=== PATIENT | male | born 1935 | race Caucasian/White ===

== ENCOUNTER 2020-06-25 19:30 | IRF | payer MEDICARE, SELFPAY ==
--- NOTE | ~2020-06-25 | XR_ITS ---
XR hip RT min 3V w AP pelvis 07/01/2020 13:19 Indication: Right hip pain Procedure: . 4 views right hip Comparison: No prior studies for comparison. Findings: There is a trochanteric nail in the right femoral neck with intramedullary trever and single d istal locking screw. There is a lesser trochanteric fracture. There is near-anatomic alignment. There are are stable lines overlying the right hip, consistent with recent surgery. There is a left total hip arthroplasty. There is advanced multilevel lumbar spondylosis partially visualized. Generalized o steopenia. Impression: 1: Near-anatomic alignment of the right femur post reduction with trochanteric nail and intramedullar y trever. Reviewed, dictated and finalized at location B. Impression: 1: Near-anatomic alignment of the right femur post reduction with trochanteric nail and intramedullary trever.
--- NOTE | ~2020-06-25 | XR_ITS ---
EXAMINATION: XR chest 1V portable EXAM DATE: 07/12/2020 06:59 INDICATION: Decreasing oxygen saturation. TECHNIQUE: Portable AP frontal chest x-ray was obtained. There is no prior study for comparison. FINDINGS: Bilateral upper lobe predominant airspace disease, most likely pneumonia. Heart is normal i n size and would be atypical distribution for pulmonary edema. No pneumothorax or pleural effusion. S ternotomy wires are present without findings to suggest sternal dehiscence. There are bony degenerati ve changes. IMPRESSION: Moderate amount of upper lobe predominant acute airspace disease . Pneumonia more likely than edema. Reviewed, dictated and finalized at location A.
--- NOTE | ~2020-06-25 | CT_ITS ---
EXAMINATION: CTA chest PE protocol EXAM DATE: 07/12/2020 21:25 INDICATION: Elevated D-dimer . TECHNIQUE: Spiral CTA of the chest (pulmonary arteries) was performed with 100 cc Omnipaque 350 intr avenous contrast injection. Images were acquired during the pulmonary arterial phase. Coronal maxi mum intensity projection 3D-reconstructions were created by the technologist on dedicated workstation . Axial, coronal and sagittal reformatted images were reviewed. The dose-length product (DLP) for t his examination was 282.45 mGy-cm. The exposure was tailored according to patient size (auto mA exp osure control), and iterative reconstruction (ASIR) was used as additional dose reduction technique. There is no prior study for comparison. FINDINGS: The main, central pulmonary arteries are dilated which can indicate elevated pulmonary brionna rial pressure, pulmonary arterial hypertension. There are no pulmonary emboli in the 1st through 3rd order (central and interlobar) pulmonary arteries. Some loss of attenuation in the segmental pulmon earl arteries from respiratory motion, some segmental regions not confidently evaluated. No thoracic aortic dissection. There is extensive bilateral upper lobe predominant groundglass density airspace disease most likely acute process. Distribution would be more consistent with infection than edema, h owever there is also mild cardiomegaly, are small to moderate left and small right nonloculated pleur al effusions.. Tracheobronchial tree is patent. There is no mediastinal, hilar or axillary lymph adenopathy. There is no pneumothorax. There are sternotomy wires, and cardiac/coronary surgical c hanges. Correlate with prior history. Upper abdomen is unremarkable. There is thoracic spondylosis without osteoblastic or osteolytic lesions identified. IMPRESSION: 1. Dilated central pulmonary arteries without emboli. Limited segmental evaluation. 2. Extensive bilateral groundglass density airspace disease with upper lobe predominant. Infection a nd/or edema most likely. 3. Cardiomegaly. Small to moderate left, small right pleural effusions. Reviewed, dictated and finalized at location A. IMPRESSION: 1. Dilated central pulmonary arteries without emboli. Limited segmental evalua tion. 2. Extensive bilateral groundglass density airspace disease with upper lobe pr edominant. Infection and/or edema most likely. 3. Cardiomegaly. Small to moderate left, small right pleural effusions.
--- NOTE | ~2020-06-25 | US_ITS ---
EXAMINATION: US venous doppler LE RT DATE: 07/01/2020 11:57 INDICATION: Right lower limb pain and swelling post surgery TECHNIQUE: Grayscale ultrasound images without and with compression and Doppler ultrasound images of the right lower extremity veins were obtained. COMPARISON: None. FINDINGS: The visualized portions of right common femoral vein, profunda (deep) femoral vein, femoral vein, pop liteal vein, peroneal trunk, posterior tibial veins, peroneal veins, gastrocnemius vein and greater s aphenous vein outflow are patent. IMPRESSION: 1. No deep venous thrombosis in the right lower limb. Reviewed, dictated and finalized at location A.
--- NOTE | ~2020-06-25 | US_ITS ---
EXAMINATION: US venous doppler LE EXAM DATE: 07/13/2020 10:24 INDICATION: Recent right hip surgery. Elevated d-dimer. TECHNIQUE: Multiple grayscale, color flow and Doppler images of the lower extremity deep venous syste ms bilaterally were obtained and reviewed. Comparison is made to prior examination from 07/01/2020. FINDINGS: Right side: The right common femoral, femoral and profunda veins demonstrate normal color flow, respi ratory variation, augmentation and compressibility. Compressibility, color flow confirmed within the right popliteal, posterior tibial, peroneal, and greater saphenous veins. Left side: The left common femoral, femoral and profunda veins demonstrate normal color flow, respira tory variation, augmentation and compressibility. Compressibility, color flow confirmed within the l eft popliteal, posterior tibial, peroneal, and greater saphenous veins. IMPRESSION: No lower extremity deep venous thrombosis bilaterally. Reviewed, dictated and finalized at location A.
--- NOTE | ~2020-06-25 | XR_ITS ---
EXAMINATION: XR ankle RT 2V DATE: 07/01/2020 13:19 INDICATION: Right ankle pain post fall TECHNIQUE: Anteroposterior and lateral views of the right ankle were obtained. COMPARISON: None. FINDINGS: Alignment is normal. No fracture. Osteoarthritis with mild to to moderate nonuniform joint space heidi rowing at the right tibiotalar joint. Mild osteoarthritis at the talonavicular, calcaneocuboid and a few of the profiled tarsal metatarsal joints. Small plantar calcaneal spur. Tiny heterotopic ossicle along the inferolateral margin of the medial malleolus which may represent sequela of chronic deltoid ligament sprain. No ankle joint effusion. The soft tissues are unremarkable. IMPRESSION: 1. 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 Reviewed, dictated and finalized at location A. IMPRESSION: 1. 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
--- NOTE | 2020-06-25 19:28 | ADMGEN ---
Arrived via ambulance at 18:50. This patient, Leo Lucio, was admitted to [facility] Room 221-02. Patient/family oriented to hospital policies and general routines including ID bracelet, bed and alarms, visiting hours, pain management, procedures, bathroom and other care routines, personal items, smoking policy, room service/diet, and visiting hours. Information on how to activate the Rapid Response Team has been discussed. Patient/Family are encouraged to report perceived risks to care and to ask questions if they do not understand what they are told or what they should do.
[2020-06-25 20:31] LABS: INR 2.5; Prothrombin Time 27.5 Seconds (11.1-14.7)
[2020-06-25 22:00] VITALS: BP 132/71; PULSE 88; RESP 18; TEMP 37.1; O2SAT 93; BMI 23.9
[2020-06-25 22:15] VITALS: PULSE 88
[2020-06-25] MEDS: OMEGA 3 POLYUNSAT FATTY ACIDS 1 GM CAP PO (22:15)
[2020-06-25] MEDS: METOPROLOL TARTRATE 25 MG TABLET PO (22:15)
[2020-06-25] MEDS: WARFARIN (*PBKC) 2 MG TABLET PO (22:16)
[2020-06-25] MEDS: traMADol HCL (*CRX) 50 MG TABLET PO (22:45)
[2020-06-26] VITALS (8 sets, daily range): BP systolic 121–148; BP diastolic 58–76; PULSE 75–96; RESP 16; TEMP 36.2–36.6; O2SAT 98–99; BMI 23.9
[2020-06-26 05:11] LABS: Basophils Percent Auto 0.2 % (0.2-1.2); Eosinophils Absolute Auto 0.2 K/mm3 (0-0.3); Eosinophils Percent Auto 2.8 % (0-4.4); Hematocrit 29.5 % (42.0-52.0); Immature Granulocyte Absolute 0.02 K/mm3 (0.00-0.031); Immature Granulocyte Percent A 0.4 % (0-0.5); Lymphocytes Absolute Auto 0.65 K/mm3 (0.9-3.2); Lymphocytes Percent Auto 12.1 % (18.3-44.2); Mean Corpuscular HGB Conc 33.9 g/dl (32-36); Mean Corpuscular Hemoglobin 32.3 pg (26-34); Mean Corpuscular Volume 95.2 fl (80-100); Mean Platelet Volume 11.2 fl (7.4-10.4); Monocytes Absolute Auto 0.5 K/mm3 (0.1-0.6); Monocytes Percent Auto 9.3 % (2.6-8.5); Neutrophils Percent Auto 75.2 % (45.5-73.1); Platelet Count Result 146 k/mm3 (150-375); Red Cell Distribution Width 12.8 % (11.5-14.5); White Blood Count 5.4 K/mm3 (4.5-10.0)
[2020-06-26 05:28] LABS: Anion Gap 2 mmol/L (8-16); Blood Urea Nitrogen 18 mg/dL (9-20); Calcium 8.6 mg/dL (8.4-10.2); Carbon Dioxide 28 mmol/L (22-30); Chloride 99 mmol/L (98-107); Estimated CRCL calculation 59 ml/min; Estimated Glomerular Filt Rate > 60; Glucose 106 mg/dL (75-110); Potassium 4.1 mmol/L (3.4-5.0); Sodium 129 mmol/L (137-145)
[2020-06-26 05:54] LABS: INR 2.4; Prothrombin Time 26.4 Seconds (11.1-14.7)
[2020-06-26] MEDS: AMIODARONE HCL 200 MG TABLET PO ×2 (08:27→17:13)
[2020-06-26] MEDS: CARBIDOPA/LEVODOPA 25/250 MG TABLET 1 TABLET PO ×3 (08:27→17:13)
[2020-06-26] MEDS: PRAVASTATIN SODIUM 20 MG TABLET PO (08:27)
[2020-06-26] MEDS: CLOPIDOGREL BISULFATE 75 MG TABLET PO (08:27)
[2020-06-26] MEDS: ISOSORBIDE MONONITRATE 30 MG TAB.ER.24H PO (08:27)
[2020-06-26] MEDS: METOPROLOL TARTRATE 25 MG TABLET PO ×2 (08:28→20:08)
[2020-06-26] MEDS: ERGOCALCIFEROL 50,000 UNIT CAPSULE 50000 UNITS PO (08:28)
[2020-06-26] MEDS: FLUTICASONE PROPIONATE 0.05% NA SPR 16 GM BTL (*BKC) 1 SPRAY NASAL (08:28)
[2020-06-26] MEDS: amantadine HCL 100 MG CAPSULE PO ×2 (08:28→17:13)
[2020-06-26] MEDS: ramipriL 5 MG CAPSULE 10 MG PO (08:28)
--- NOTE | 2020-06-26 12:17 | WPDREHABHP ---
H&P: HPI History of Present Illness Date/Time: 06/26/20 12:17 HISTORY OF PRESENT ILLNESS: The patient's primary rehab impairment category is Orthopedic LE The etiologic diagnosis is Comminuted and minimally displaced intertrochanteric right hip fracture I saw this patient [id number] on 06/16/20 The patient is a 85-year-old male with past medical history of coronary artery disease, hypertension, squamous cell cancer, Parkinson's disease, hyperlipidemia, BPH who presented to [facility] for an elective transesophageal echo on 06/20/2020. LONNIE revealed a flail to posterior mitral valve leaflet with torn chordae tendonae and severe mitral regurgitation. on his way home the patient slipped sustaining a right hip fracture. Patient was initially evaluated at [facility] in [place] and then transferred to [facility] for further evaluation and management. Patient underwent a close reduction and hip pinning on 06/21/[address] Manrique. He is weight-bearing as tolerated. On 06/21 the patient went into atrial fib it was started on an amiodarone IV drip and switched to p.o. amiodarone 200 mg twice a day. The patient converted back to sinus rhythm. His hospital course has been significant for atrial fib, acute postop pain, hyponatremia, hypertension, hyperlipidemia, Parkinson's disease and acute blood loss anemia. Hypertension is being treated with metoprolol and ramipiril. hyperlipidemia is treated with provide asked in. Parkinson's disease is chronic and there are tremors noted to bilateral upper extremity he currently is on carbidopa levodopa and amantadine. I spoke with Dr. Dallas his utility bill complaints investigator at [facility] regarding anticoagulation. At this time patient is to remain on Plavix 75 mg daily with Coumadin. INR range is 2-3. My discussion with Dr. Dallas was my concern regarding potential fall with a diagnosis of Parkinson's disease. Dr. Dallas will see the patient in 4 weeks and most likely will have a Holter monitor to determine need of ongoing Coumadin. Patient will be discharged from rehab with Plavix and Coumadin. Coumadin will be managed by [facility] anticoagulation clinic at time of discharge. Patient will have follow-up with Dr. Dallas, Cardiology, and Dr. Manrique orthopedic COVID: The patient has not traveled outside the [place] are had contact with someone who is ill that his travel outside the [place] in the past 21 days. The patient has not traveled to an area of the [place] that is experiencing no transmission of the Coronavirus and has not had close personal contact with anyone that has. The patient does not have a fever. The patient is not experiencing lower respiratory illness symptoms. COVID test was negative on 06/25/2020. Therapy was initiated at the acute care facility and the patient transferred to us from [facility] on 06/25/2020 in the evening FALLS OR SURGERIES: The patient has had no major surgeries in the 100 days prior to admission. They had 1 falls in the past year. They had falls with injury in the past year. Right hip pinning 06/21/2020 PRIOR LEVEL OF FUNCTION: Eating was [INDEPENDENT] Oral Care was [INDEPENDENT] Toileting Hygiene was [INDEPENDENT] Shower/Bathing was [INDEPENDENT] Upper Body Dressing was [INDEPENDENT] Lower Body Dressing was [INDEPENDENT] Donning/[place] Footwear was [INDEPENDENT] Rolling Left and Right was [INDEPENDENT] Sit to Lying was [INDEPENDENT] Lying to Sitting was [INDEPENDENT] Sit to Stand was [INDEPENDENT] Bed to Chair Transfers was [INDEPENDENT] Toilet Transfers was [INDEPENDENT] Walking was [INDEPENDENT] [750 feet] with rolling walker Wheelchair Mobility was NOT APPLICABLE PRIOR TO ADMISSION Stairs were INDEPENDENT CURRENT LEVEL OF FUNCTION: Eating was is setup Oral Care was partial to moderate assistance Toileting Hygiene was substantial to maximal assist Shower/Bathing was subst
[2020-06-26] MEDS: ACETAMINOPHEN 325 MG TABLET 650 MG PO (12:18)
--- NOTE | 2020-06-26 13:45 | PCNSR ---
On 06/26/20, the student,Alisa Zurita, provided care and completed [facility] documentation on this patient. I have reviewed the student's documentation and agree with the findings.
[2020-06-26] MEDS: TAMSULOSIN HCL 0.4 MG CAPSULE PO (17:12)
[2020-06-26] MEDS: WARFARIN (*PBKC) 2 MG TABLET PO (17:13)
[2020-06-26] MEDS: BISACODYL 10 MG SUPPOSITORY RECTAL (18:28)
[2020-06-26] MEDS: DOCUSATE SODIUM 100 MG CAPSULE PO (20:08)
[2020-06-26] MEDS: OMEGA 3 POLYUNSAT FATTY ACIDS 1 GM CAP PO (20:08)
[2020-06-26] MEDS: BISACODYL 5 MG TABLET EC PO (20:13)
[2020-06-27 05:11] VITALS: BP 148/64; PULSE 81; RESP 16; TEMP 36.3; O2SAT 97
[2020-06-27 05:30] LABS: INR 2.5; Prothrombin Time 27.7 Seconds (11.1-14.7)
[2020-06-27] MEDS: ISOSORBIDE MONONITRATE 30 MG TAB.ER.24H PO (08:36)
[2020-06-27] MEDS: amantadine HCL 100 MG CAPSULE PO ×2 (08:36→17:56)
[2020-06-27] MEDS: CARBIDOPA/LEVODOPA 25/250 MG TABLET 1 TABLET PO ×3 (08:36→17:56)
[2020-06-27 08:37] VITALS: PULSE 81
[2020-06-27] MEDS: polyethylene glycoL 3350 17 GM POWD.PACK PO (08:37)
[2020-06-27] MEDS: AMIODARONE HCL 200 MG TABLET PO ×2 (08:37→17:56)
[2020-06-27] MEDS: ramipriL 5 MG CAPSULE 10 MG PO (08:37)
[2020-06-27] MEDS: CLOPIDOGREL BISULFATE 75 MG TABLET PO (08:37)
[2020-06-27] MEDS: DOCUSATE SODIUM 100 MG CAPSULE PO ×2 (08:37→20:48)
[2020-06-27] MEDS: METOPROLOL TARTRATE 25 MG TABLET PO ×2 (08:37→20:48)
[2020-06-27] MEDS: PRAVASTATIN SODIUM 20 MG TABLET PO (08:37)
--- NOTE | 2020-06-27 12:47 | RPD ---
INDIVIDUALIZED PLAN OF CARE FOR Leo Lucio Brief Synthesis of Pre-Admission Screen, Post-Admission Evaluation and Therapy Evaluations: The patient presents to rehab with comminuted and minimally displaced intertrochanteric right hip fracture. Comorbidities include acute postoperative pain, acute blood loss anemia, atrial fibrillation, hyponatremia, hypertension, hyperlipidemia, Parkinson's disease, BPH, coronary artery disease, and mitral valve regurgitation. The complexity of the patient's medical management, nursing, and therapy needs require an inpatient rehab hospital stay with a physician-led interdisciplinary team approach. The patient?s needs will be best met in an intensive program vs. at a lower level of care. The patient requires physician services for medical oversight, management of postop complications in setting of present comorbidities, and pain management. He will be followed at least three times a week by the rehabilitation physician. Orthopedics may see the patient at the frequency of their discretion. Labs will be drawn to monitor blood counts and electrolytes periodically. The patient requires nursing services for DVT prophylactics, infection protection, medication management and education, pressure relief, and wound care. Deficits include: ADLs, Balance, Endurance, Family Training/Education, Mobility, Pain Management, ROM, Safety, Strength, and Transfers. Test Lead Application Testing/Case Management for: Discharge Planning and Patient/Family Counseling Physical Therapy: 5 days per week for 75 minutes. Treatments may include: Therapeutic Exercise, Gait Training, Neuromuscular Re-education, Transfer Training, Community Reintegration, Bed Mobility, Patient/Family Education, Wheelchair Mobility Group Therapy/Concurrent Therapy Rationales: -Improve attention span during functional activities in a distracted environment. -Enhance problem solving and/or adequate judgment skills during functional activities in a distracted environment. -Promote increased safety awareness in a distracted environment to reduce fall risk with functional tasks, transfers, and ambulation to allow a more safe, self-sufficient return to the home environment. -Improve dynamic balance skills to promote safety and independence with functional activities in a distracted environment for maximum gain. Occupational Therapy: 5 days per week for 75 minutes. Treatments may include: Therapeutic Exercise, Therapeutic Activity, Cognitive Training, Self-Care Transfer Training, Community Reintegration, Home Management, Patient/Family Education, Wheelchair Mobility Training, Energy Conservation Training Group Therapy/Concurrent Therapy Rationales: -Allow therapist to observe and teach generalization and carry-over of skills learned in individual therapy. -Enhance problem solving and sequencing skills during therapeutic activities in a distracted environment. -Promote increased safety awareness in a realistic setting to reduce fall risk with functional tasks due to visual and verbal distractions. -Increase functional level with ADLs, ADL transfers and use of adaptive equipment through therapeutic activities with others while promoting safety to allow a more safe, self-sufficient return home. Speech Therapy: 5 days per week for 30 minutes. Treatments may include: Dysphasia Therapy, Speech/Language/Communication Therapy, Cognitive Training, Patient/Family Education Group Therapy/Concurrent Therapy - Rationale: -Allow therapist to observe and teach generalization and carry-over of skills learned in individual therapy. -Improve comprehension skills with complex or abstract ideas through discussion in a realistic setting. -Enhance problem solving skills with complex issues during activities in a distracted environment. -Promote increased memory skills and concentration in a distracted environment for a safe transition home. -Improve attention and focus with language/communication skills in a realistic and s
[2020-06-27] MEDS: traMADol HCL (*CRX) 50 MG TABLET PO (13:06)
--- NOTE | 2020-06-27 13:15 | WPDNEURORHBP ---
Subjective Date/time seen: 06/27/20 13:15 The patient is a 85-year-old male with past medical history of coronary artery disease, hypertension, squamous cell cancer, Parkinson's disease, hyperlipidemia, BPH who presented to [facility] for an elective transesophageal echo on 06/20/2020. LONNIE revealed a flail to posterior mitral valve leaflet with torn chordae tendonae and severe mitral regurgitation. On his way home from the LONNIE, the patient slipped sustaining a right hip fracture. Patient was initially evaluated at [facility] in [place] and then transferred to [facility] for further evaluation and management. Patient underwent a close reduction and hip pinning on 06/21/[address] Manrique. He is weight-bearing as tolerated. On 06/21 the patient went into atrial fib it was started on an amiodarone IV drip and switched to p.o. amiodarone 200 mg twice a day. The patient converted back to sinus rhythm. His hospital course has been significant for atrial fib, acute postop pain, hyponatremia, hypertension, hyperlipidemia, Parkinson's disease and acute blood loss anemia. Hypertension is being treated with metoprolol and ramipiril. Hyperlipidemia is treated with pravstatin. Parkinson's disease is chronic and there are tremors noted to bilateral upper extremity he currently is on carbidopa levodopa and amantadine. I spoke with Dr. Dallas his surface lay out technician at [facility] regarding anticoagulation. At this time patient is to remain on Plavix 75 mg daily with Coumadin. INR range is 2-3. My discussion with Dr. Dallas was my concern regarding potential fall with a diagnosis of Parkinson's disease. Dr. Dallas will see the patient in 4 weeks and most likely will have a Holter monitor to determine need of ongoing Coumadin. Patient will be discharged from rehab with Plavix and Coumadin. Coumadin will be managed by [facility] anticoagulation clinic at time of discharge. Patient will have follow-up with Dr. Dallas, Cardiology, and Dr. Manrique orthopedic Patient admits to BM today. Patient admits to Right hip pain and is requesting stronger pain pill Review of Systems Review of Systems: All systems reviewed & are unremarkable except as noted in HPI and below Functional Status Ambulation Ability Ability to Ambulate 10 Feet: Minimum Assistance X 1 Ambulation Assistive Devices: Walker, Wheeled Exam Narrative: Exam Narrative: Head is normocephalic except for left ear and left jaw where squamous cell carcinoma was removed. External ocular muscles are intact. Affect is flat. Neck is supple. Heart rate and rhythm is regular with a 4/6 systolic ejection murmur noted. Lungs are clear to auscultation. Chest wall reveals well-healed CABG scar. Graft sites are noted to the left upper extremity. Abdomen is soft nontender positive bowel sounds. Tongue is midline. Cognition reflects mild cognitive deficits in problem solving, sequencing, and memory. Clearing of the throat was noted while drinking from a straw. Bilateral upper extremity strength are 4/5. Left lower extremity strength are 4/5. Right hip incision revealed dressing noted. Proximal hip strength is trace to 2/5. Distal right lower extremity strength is 3+ to 4-. Transfers are min/mod Objective Data Vital Signs Vital Signs: Vital Signs - 24 hr 06/26/20 14:00 06/26/20 17:13 06/26/20 20:00 Temperature 36.4 C Pulse Rate 86 86 75 Respiratory Rate 16 16 Blood Pressure 121/58 L Pulse Oximetry 99 99 06/26/20 20:08 06/26/20 21:23 06/27/20 05:11 Temperature 36.6 C 36.3 C L Pulse Rate 75 96 81 Respiratory Rate 16 16 Blood Pressure 145/76 H 148/64 H Pulse Oximetry 98 97 06/27/20 08:37 Temperature Pulse Rate 81 Respiratory Rate Blood Pressure Pulse Oximetry Intake/Output Intake/Output: Intake & Output 06/24/20 06/25/20 06/26/20 06/27/20 23:59 23:59 23:59 23:59 Intake Total 840 740 Balance
[2020-06-27 14:00] VITALS: BP 112/63; PULSE 76; RESP 16; TEMP 36.2; O2SAT 95
[2020-06-27 17:56] VITALS: PULSE 76
[2020-06-27] MEDS: WARFARIN (*PBKC) 2 MG TABLET PO (18:02)
[2020-06-27] MEDS: TAMSULOSIN HCL 0.4 MG CAPSULE PO (18:02)
[2020-06-27 20:48] VITALS: PULSE 76
[2020-06-27] MEDS: OMEGA 3 POLYUNSAT FATTY ACIDS 1 GM CAP PO (20:48)
[2020-06-27 22:00] VITALS: BP 118/58; PULSE 81; RESP 16; TEMP 36.8; O2SAT 98
[2020-06-28] VITALS (7 sets, daily range): BP systolic 115–139; BP diastolic 50–69; PULSE 70–84; RESP 16–18; TEMP 36.1–36.4; O2SAT 95–98
[2020-06-28 06:14] LABS: INR 2.3; Prothrombin Time 25.9 Seconds (11.1-14.7)
[2020-06-28] MEDS: traMADol HCL (*CRX) 50 MG TABLET PO ×2 (06:47→12:28)
[2020-06-28] MEDS: CARBIDOPA/LEVODOPA 25/250 MG TABLET 1 TABLET PO ×3 (09:18→17:14)
[2020-06-28] MEDS: amantadine HCL 100 MG CAPSULE PO ×2 (09:18→17:14)
[2020-06-28] MEDS: CLOPIDOGREL BISULFATE 75 MG TABLET PO (09:19)
[2020-06-28] MEDS: DOCUSATE SODIUM 100 MG CAPSULE PO ×2 (09:19→20:52)
[2020-06-28] MEDS: AMIODARONE HCL 200 MG TABLET PO ×2 (09:19→17:14)
[2020-06-28] MEDS: ramipriL 5 MG CAPSULE 10 MG PO (09:20)
[2020-06-28] MEDS: PRAVASTATIN SODIUM 20 MG TABLET PO (09:20)
[2020-06-28] MEDS: ISOSORBIDE MONONITRATE 30 MG TAB.ER.24H PO (09:20)
[2020-06-28] MEDS: METOPROLOL TARTRATE 25 MG TABLET PO ×2 (09:20→20:52)
[2020-06-28] MEDS: polyethylene glycoL 3350 17 GM POWD.PACK PO (09:20)
[2020-06-28] MEDS: ACETAMINOPHEN 325 MG TABLET 650 MG PO (09:29)
--- NOTE | 2020-06-28 10:00 | WPDNEURORHBP ---
Subjective Date/time seen: 06/28/20 10:00 The patient is a 85-year-old male with past medical history of coronary artery disease, hypertension, squamous cell cancer, Parkinson's disease, hyperlipidemia, BPH who presented to [facility] for an elective transesophageal echo on 06/20/2020. LONNIE revealed a flail to posterior mitral valve leaflet with torn chordae tendonae and severe mitral regurgitation. On his way home from the [place], the patient slipped sustaining a right hip fracture. Patient was initially evaluated at [facility] in [place] and then transferred to [facility] for further evaluation and management. Patient underwent a close reduction and hip pinning on 06/21/[address] Manrique. He is weight-bearing as tolerated. On 06/21 the patient went into atrial fib it was started on an amiodarone IV drip and switched to p.o. amiodarone 200 mg twice a day. The patient converted back to sinus rhythm. His hospital course has been significant for atrial fib, acute postop pain, hyponatremia, hypertension, hyperlipidemia, Parkinson's disease and acute blood loss anemia. Hypertension is being treated with metoprolol and ramipiril. Hyperlipidemia is treated with pravstatin. Parkinson's disease is chronic and there are tremors noted to bilateral upper extremity he currently is on carbidopa levodopa and amantadine. I spoke with Dr. Dallas his recreation attendant supervisor at [facility] regarding anticoagulation. At this time patient is to remain on Plavix 75 mg daily with Coumadin. INR range is 2-3. My discussion with Dr. Dallas was my concern regarding potential fall with a diagnosis of Parkinson's disease. Dr. Dallas will see the patient in 4 weeks and most likely will have a Holter monitor to determine need of ongoing Coumadin. Patient will be discharged from rehab with Plavix and Coumadin. Coumadin will be managed by [facility] anticoagulation clinic at time of discharge. Review of Systems Review of Systems: All systems reviewed & are unremarkable except as noted in HPI and below Functional Status Ambulation Ability Ability to Ambulate 10 Feet: Minimum Assistance X 1 Ambulation Assistive Devices: Walker, Wheeled Exam Narrative: Exam Narrative: Head is normocephalic except for left ear and left jaw where squamous cell carcinoma was removed. External ocular muscles are intact. Affect is flat. Neck is supple. Heart rate and rhythm is regular with a 4/6 systolic ejection murmur noted. Lungs are clear to auscultation. Chest wall reveals well-healed CABG scar. Graft sites are noted to the left upper extremity. Abdomen is soft nontender positive bowel sounds. Tongue is midline. Cognition reflects mild cognitive deficits in problem solving, sequencing, and memory. Clearing of the throat was noted while drinking from a straw. Bilateral upper extremity strength are 4/5. Left lower extremity strength are 4/5. Right hip incision revealed dressing noted. Proximal hip strength is trace to 2/5. Distal right lower extremity strength is 3+ to 4-. Transfers are min/mod Objective Data Vital Signs Vital Signs: Vital Signs - 24 hr 06/27/20 14:00 06/27/20 17:56 06/27/20 20:48 Temperature 36.2 C L Pulse Rate 76 76 76 Respiratory Rate 16 Blood Pressure 112/63 Pulse Oximetry 95 06/27/20 22:00 06/28/20 05:17 06/28/20 09:19 Temperature 36.8 C 36.1 C L Pulse Rate 81 70 70 Respiratory Rate 16 16 Blood Pressure 118/58 L 135/69 Pulse Oximetry 98 98 06/28/20 09:20 Temperature Pulse Rate 70 Respiratory Rate Blood Pressure Pulse Oximetry Intake/Output Intake/Output: Intake & Output 06/25/20 06/26/20 06/27/20 06/28/20 23:59 23:59 23:59 23:59 Intake Total 840 1270 240 Balance 840 1270 240 Meds/Results Medications: Active Medications Generic Name Dose Route Start Last Admin Trade Name Freq PRN Reason Stop Dose Admin Acetaminophen 650 mg 06/25/20 20:40
[2020-06-28] MEDS: WARFARIN (*PBKC) 2 MG TABLET PO (17:15)
[2020-06-28] MEDS: TAMSULOSIN HCL 0.4 MG CAPSULE PO (17:15)
[2020-06-28] MEDS: MELATONIN 3 MG TABLET PO (20:52)
[2020-06-28] MEDS: OMEGA 3 POLYUNSAT FATTY ACIDS 1 GM CAP PO (20:52)
[2020-06-29] VITALS (8 sets, daily range): BP systolic 113–124; BP diastolic 49–59; PULSE 71–78; RESP 18–20; TEMP 36.2–36.4; O2SAT 96–97
[2020-06-29 04:51] LABS: INR 2.2; Prothrombin Time 24.7 Seconds (11.1-14.7)
[2020-06-29] MEDS: traMADol HCL (*CRX) 50 MG TABLET PO ×2 (07:13→13:09)
[2020-06-29] MEDS: AMIODARONE HCL 200 MG TABLET PO ×2 (09:12→17:29)
[2020-06-29] MEDS: METOPROLOL TARTRATE 25 MG TABLET PO ×2 (09:12→18:48)
[2020-06-29] MEDS: ISOSORBIDE MONONITRATE 30 MG TAB.ER.24H PO (09:12)
[2020-06-29] MEDS: CARBIDOPA/LEVODOPA 25/250 MG TABLET 1 TABLET PO ×3 (09:13→17:28)
[2020-06-29] MEDS: CLOPIDOGREL BISULFATE 75 MG TABLET PO (09:13)
[2020-06-29] MEDS: ramipriL 5 MG CAPSULE 10 MG PO (09:13)
[2020-06-29] MEDS: DOCUSATE SODIUM 100 MG CAPSULE PO ×2 (09:13→21:05)
[2020-06-29] MEDS: PRAVASTATIN SODIUM 20 MG TABLET PO (09:13)
[2020-06-29] MEDS: amantadine HCL 100 MG CAPSULE PO ×2 (09:14→17:28)
[2020-06-29] MEDS: polyethylene glycoL 3350 17 GM POWD.PACK PO (09:14)
--- NOTE | 2020-06-29 09:16 | WPDNEURORHBP ---
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 Patient was discharged home and on arrival home patient slipped and fell sustaining a right hip fracture. Patient was transferred to [facility] Orthopaedic surgery and Cardiology was consulted. Patient underwent a close reduction in hip pinning on 06/21/2020 and is weight-bearing as tolerated. Patient also developed atrial fib was started on amiodarone drip and placed on oral amiodarone at time of discharge. [facility] course was significant for AFib, acute postop pain, hyponatremia, hypertension, hyperlipidemia, Parkinson's disease and acute blood loss anemia. Patient will be discharged on Plavix and Coumadin. Eventually Coumadin dosing will be taken over by [facility] anticoagulation clinic at time of discharge. Dr. [place] cardiology is considering Coumadin for roughly 2 months. Patient complains of insomnia and hip pain. Review of Systems Review of Systems: All systems reviewed & are unremarkable except as noted in HPI and below Functional Status Ambulation Ability Ability to Ambulate 10 Feet: Minimum Assistance X 1 Ambulation Assistive Devices: Walker, Wheeled Exam Narrative: Exam Narrative: Head is normocephalic except for left ear and left jaw where squamous cell carcinoma was removed. External ocular muscles are intact. Affect is flat. Neck is supple. Heart rate and rhythm is regular with a 4/6 systolic ejection murmur noted. Lungs are clear to auscultation. Chest wall reveals well-healed CABG scar. Graft sites are noted to the left upper extremity. Abdomen is soft nontender positive bowel sounds. Tongue is midline. Cognition reflects mild cognitive deficits in problem solving, sequencing, and memory. Bilateral upper extremity strength are 4/5. Left lower extremity strength are 4/5. Right hip incision revealed dressing noted. Proximal hip strength is trace to 2/5. Distal right lower extremity strength is 3+ to 4-. Sit to stand tx are CGA. Sit to stand from bed are moderate assist. Objective Data Vital Signs Vital Signs: Vital Signs - 24 hr 06/28/20 09:19 06/28/20 09:20 06/28/20 14:00 Temperature 36.2 C L Pulse Rate 70 70 79 Respiratory Rate 18 Blood Pressure 139/68 Pulse Oximetry 95 06/28/20 17:14 06/28/20 20:51 06/28/20 20:52 Temperature 36.4 C Pulse Rate 79 81 84 Respiratory Rate 18 Blood Pressure 115/50 L Pulse Oximetry 97 06/29/20 05:36 06/29/20 09:12 Temperature 36.3 C L Pulse Rate 71 71 Respiratory Rate 20 Blood Pressure 114/53 L Pulse Oximetry 96 Intake/Output Intake/Output: Intake & Output 06/26/20 06/27/20 06/28/20 06/29/20 23:59 23:59 23:59 23:59 Intake Total 840 1270 720 Balance 840 1270 720 Meds/Results Medications: Active Medications Generic Name Dose Route Start Last Admin Trade Name Freq PRN Reason Stop Dose Admin Acetaminophen 650 mg 06/25/20 20:40 06/28/20 09:29 Acetaminophen 325 Mg Tablet PO 650 mg Q6H PRN Administration Mild Pain (1-3) Amantadine HCl 100 mg 06/26/20 09:00 06/29/20 09:14 Amantadine Hcl 100 Mg Capsule PO 100 mg BID ASHLEY Administration Amiodarone HCl 200 mg 06/26/20 09:00 06/29/20 09:12 Amiodarone Hcl 200 Mg Tablet PO 200 mg BID ASHLEY Administration Bisacodyl 5 mg 06/26/20 10:30 06/26/20 20:13 Bisacodyl 5 Mg Tablet Ec PO 5 mg QAM PRN Administration Constipation Calcium Carbonate 500 mg 06/26/20 09:00 06/29/20 09:13 Calcium/Vitamin D 500 Mg Tablet PO 500 mg TID ASHLEY Administration Carbidopa/Levodopa 1 tablet 06/26/20 08:00 06/29/20 09:13 Carbidopa/Levodopa 25/250 Mg Ta
[2020-06-29] MEDS: WARFARIN (*PBKC) 2 MG TABLET PO (17:28)
[2020-06-29] MEDS: TAMSULOSIN HCL 0.4 MG CAPSULE PO (17:29)
[2020-06-29] MEDS: OMEGA 3 POLYUNSAT FATTY ACIDS 1 GM CAP PO (21:05)
[2020-06-29] MEDS: MELATONIN 3 MG TABLET PO (21:05)
[2020-06-30] VITALS (8 sets, daily range): BP systolic 107–127; BP diastolic 46–60; PULSE 71–88; RESP 16–18; TEMP 36.4–36.8; O2SAT 96–100
[2020-06-30 05:16] LABS: INR 2.1; Prothrombin Time 24.2 Seconds (11.1-14.7)
[2020-06-30] MEDS: ISOSORBIDE MONONITRATE 30 MG TAB.ER.24H PO (06:48)
[2020-06-30] MEDS: METOPROLOL TARTRATE 25 MG TABLET PO ×2 (06:50→20:21)
[2020-06-30] MEDS: traMADol HCL (*CRX) 50 MG TABLET PO ×2 (06:53→12:19)
[2020-06-30] MEDS: CARBIDOPA/LEVODOPA 25/250 MG TABLET 1 TABLET PO ×3 (08:22→18:28)
[2020-06-30] MEDS: AMIODARONE HCL 200 MG TABLET PO ×2 (08:22→18:27)
[2020-06-30] MEDS: amantadine HCL 100 MG CAPSULE PO ×2 (08:22→18:27)
[2020-06-30] MEDS: CLOPIDOGREL BISULFATE 75 MG TABLET PO (08:23)
[2020-06-30] MEDS: PRAVASTATIN SODIUM 20 MG TABLET PO (08:23)
[2020-06-30] MEDS: ramipriL 5 MG CAPSULE 10 MG PO (08:23)
[2020-06-30] MEDS: polyethylene glycoL 3350 17 GM POWD.PACK PO (08:23)
[2020-06-30] MEDS: DOCUSATE SODIUM 100 MG CAPSULE PO ×2 (08:23→20:21)
--- NOTE | 2020-06-30 08:28 | RPD ---
INDIVIDUALIZED PLAN OF CARE FOR Leo Lucio Brief Synthesis of Pre-Admission Screen, Post-Admission Evaluation and Therapy Evaluations: The patient presents to rehab with a comminuted and minimally displaced intertrochanteric right hip fracture. Comorbidities include acute postoperative pain, acute blood loss anemia, atrial fibrillation, hyponatremia, hypertension, hyperlipidemia, Parkinson's disease, BPH, coronary artery disease, and mitral valve regurgitation. The complexity of the patient's medical management, nursing, and therapy needs require an inpatient rehab hospital stay with a physician-led interdisciplinary team approach. The patient?s needs will be best met in an intensive program vs. at a lower level of care. The patient requires physician services for medical oversight, management of postop complications in setting of present comorbidities, and pain management. He will be followed at least three times a week by the rehabilitation physician. The patient requires nursing services for DVT prophylactics, infection protection, medication management and education, pressure relief, and wound care Deficits include:ADLs, Balance, Endurance, Family Training/Education, Mobility, Pain Management, ROM, Safety, Strength, and Transfers. Gear Nicker/Case Management for: Discharge Planning and Patient/Family Counseling Physical Therapy: 5 days per week for 75 minutes. Treatments may include: Therapeutic Exercise, Gait Training, Neuromuscular Re-education, Transfer Training, Community Reintegration, Bed Mobility, Patient/Family Education, Wheelchair Mobility Group Therapy/Concurrent Therapy Rationales: -Improve attention span during functional activities in a distracted environment. -Enhance problem solving and/or adequate judgment skills during functional activities in a distracted environment. -Promote increased safety awareness in a distracted environment to reduce fall risk with functional tasks, transfers, and ambulation to allow a more safe, self-sufficient return to the home environment. -Improve dynamic balance skills to promote safety and independence with functional activities in a distracted environment for maximum gain. Occupational Therapy: 5 days per week for 75 minutes. Treatments may include: Therapeutic Exercise, Therapeutic Activity, Cognitive Training, Self-Care Transfer Training, Community Reintegration, Home Management, Patient/Family Education, Wheelchair Mobility Training, Energy Conservation Training Group Therapy/Concurrent Therapy Rationales: -Allow therapist to observe and teach generalization and carry-over of skills learned in individual therapy. -Enhance problem solving and sequencing skills during therapeutic activities in a distracted environment. -Promote increased safety awareness in a realistic setting to reduce fall risk with functional tasks due to visual and verbal distractions. -Increase functional level with ADLs, ADL transfers and use of adaptive equipment through therapeutic activities with others while promoting safety to allow a more safe, self-sufficient return home. Speech Therapy: 5 days per week for 30 minutes. Treatments may include: Dysphasia Therapy, Speech/Language/Communication Therapy, Cognitive Training, Patient/Family Education Group Therapy/Concurrent Therapy - Rationale: -Allow therapist to observe and teach generalization and carry-over of skills learned in individual therapy. -Improve comprehension skills with complex or abstract ideas through discussion in a realistic setting. -Enhance problem solving skills with complex issues during activities in a distracted environment. -Promote increased memory skills and concentration in a distracted environment for a safe transition home. -Improve attention and focus with language/communication skills in a realistic and supportive therapeutic setting. -Allow for practice of expression of basic needs and ideas through functional activities with others. Medical P
--- NOTE | 2020-06-30 10:55 | WPDNEURORHBP ---
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 Patient was discharged home and on arrival home patient slipped and fell sustaining a right hip fracture. Patient was transferred to [facility] Orthopaedic surgery and Cardiology was consulted. Patient underwent a close reduction in hip pinning on 06/21/2020 and is weight-bearing as tolerated. Patient also developed atrial fib was started on amiodarone drip and placed on oral amiodarone at time of discharge. [facility] course was significant for AFib, acute postop pain, hyponatremia, hypertension, hyperlipidemia, Parkinson's disease and acute blood loss anemia. Patient will be discharged on Plavix and Coumadin. Eventually Coumadin dosing will be taken over by [facility] anticoagulation clinic at time of discharge. Dr. [place] cardiology is considering Coumadin for roughly 2 months. Patient complains of ongoing hip pain and PD. Review of Systems Review of Systems: All systems reviewed & are unremarkable except as noted in HPI and below Functional Status Ambulation Ability Ability to Ambulate 10 Feet: Minimum Assistance X 1 Ambulation Assistive Devices: Walker, Wheeled Exam Narrative: Exam Narrative: Head is normocephalic except for left ear and left jaw where squamous cell carcinoma was removed. External ocular muscles are intact. Affect is flat. Neck is supple. Heart rate and rhythm is regular with a 4/6 systolic ejection murmur noted. Lungs are clear to auscultation. Chest wall reveals well-healed CABG scar. Graft sites are noted to the left upper extremity. Abdomen is soft nontender positive bowel sounds. Tongue is midline. Cognition reflects mild cognitive deficits in problem solving, sequencing, and memory. Bilateral upper extremity strength are 4/5. Left lower extremity strength are 4/5. Proximal hip strength is trace to 2/5. Distal right lower extremity strength is 3+ to 4-. Wheelchair transfers are moderate assistance of 1. Objective Data Vital Signs Vital Signs: Vital Signs - 24 hr 06/29/20 14:00 06/29/20 17:29 06/29/20 18:48 Temperature 36.2 C L Pulse Rate 78 78 78 Respiratory Rate 18 Blood Pressure 124/59 L Pulse Oximetry 96 06/29/20 19:56 06/29/20 20:00 06/30/20 05:11 Temperature 36.4 C 36.4 C Pulse Rate 76 76 73 Respiratory Rate 18 18 18 Blood Pressure 113/49 L 115/56 L Pulse Oximetry 97 97 96 06/30/20 06:50 06/30/20 08:22 Temperature Pulse Rate 73 73 Respiratory Rate Blood Pressure Pulse Oximetry Intake/Output Intake/Output: Intake & Output 06/27/20 06/28/20 06/29/20 06/30/20 23:59 23:59 23:59 23:59 Intake Total 1270 720 720 240 Balance 1270 720 720 240 Meds/Results Medications: Active Medications Generic Name Dose Route Start Last Admin Trade Name Freq PRN Reason Stop Dose Admin Acetaminophen 650 mg 06/25/20 20:40 06/28/20 09:29 Acetaminophen 325 Mg Tablet PO 650 mg Q6H PRN Administration Mild Pain (1-3) Amantadine HCl 100 mg 06/26/20 09:00 06/30/20 08:22 Amantadine Hcl 100 Mg Capsule PO 100 mg BID ASHLEY Administration Amiodarone HCl 200 mg 06/26/20 09:00 06/30/20 08:22 Amiodarone Hcl 200 Mg Tablet PO 200 mg BID ASHLEY Administration Bisacodyl 5 mg 06/26/20 10:30 06/26/20 20:13 Bisacodyl 5 Mg Tablet Ec PO 5 mg QAM PRN Administration Constipation Calcium Carbonate 500 mg 06/26/20 09:00 06/30/20 08:22 Calcium/Vitamin D 500 Mg Tablet PO 500 mg TID ASHLEY Administration Carbidopa/Levodopa 1 tablet 06/26/20 08:00 06/30/20 08:22 Carbidopa/Levodopa 25/250 Mg Tablet PO 1 tablet TIDWM ASHLEY Administra
--- NOTE | 2020-06-30 16:08 | PCPTNOTE ---
Leo Lucio was evaluated for a wheeled walker on 06/30/2020 by this physical therapist. The wheeled walker will resolve patient's mobility limitations and will be used for ADL's within the home. The patient can safely use the wheeled walker. ?The wheeled walker will resolve the patient?s mobility deficits, including R LE weakness, poor endurance, and decreased balance.
[2020-06-30] MEDS: WARFARIN (*PBKC) 3 MG TABLET PO (18:27)
[2020-06-30] MEDS: TAMSULOSIN HCL 0.4 MG CAPSULE PO (18:27)
[2020-06-30] MEDS: OMEGA 3 POLYUNSAT FATTY ACIDS 1 GM CAP PO (20:21)
[2020-06-30] MEDS: MELATONIN 3 MG TABLET PO (20:21)
[2020-07-01] VITALS (7 sets, daily range): BP systolic 125–137; BP diastolic 60–65; PULSE 68–86; RESP 16–18; TEMP 36.3–36.7; O2SAT 97–98
[2020-07-01 05:15] LABS: INR 1.8; Prothrombin Time 21.1 Seconds (11.1-14.7)
[2020-07-01] MEDS: traMADol HCL (*CRX) 50 MG TABLET PO ×2 (06:48→12:19)
[2020-07-01] MEDS: METOPROLOL TARTRATE 25 MG TABLET PO ×2 (06:48→17:57)
[2020-07-01] MEDS: ISOSORBIDE MONONITRATE 30 MG TAB.ER.24H PO (06:48)
[2020-07-01] MEDS: AMIODARONE HCL 200 MG TABLET PO ×2 (08:38→17:58)
[2020-07-01] MEDS: ramipriL 5 MG CAPSULE 10 MG PO (08:39)
[2020-07-01] MEDS: PRAVASTATIN SODIUM 20 MG TABLET PO (08:39)
[2020-07-01] MEDS: CARBIDOPA/LEVODOPA 25/250 MG TABLET 1 TABLET PO ×3 (08:39→17:58)
[2020-07-01] MEDS: amantadine HCL 100 MG CAPSULE PO ×2 (08:39→17:56)
[2020-07-01] MEDS: polyethylene glycoL 3350 17 GM POWD.PACK PO (08:39)
[2020-07-01] MEDS: DOCUSATE SODIUM 100 MG CAPSULE PO ×2 (08:39→20:29)
[2020-07-01] MEDS: CLOPIDOGREL BISULFATE 75 MG TABLET PO (08:39)
[2020-07-01] MEDS: ACETAMINOPHEN 325 MG TABLET 650 MG PO (08:44)
--- NOTE | 2020-07-01 12:55 | PCNFU ---
Nutrition Follow-Up Complete: Increased protein needs related to surgery as evidenced by protein recommendations of 74-88 grams of protein per day Goal: Patient to consume 75% or more of meals on current diet order. Patient is consuming 75-100% of meals. Pt current nutrition is a regular diet. Last recorded weight is 73.5 kg. Recommend re-weighing patient prior to discharge. Bowel Motility: + BM 07/01 Labs Reviewed: PT 21.1 Meds Noted: Pacerone, Flomax, Drisdol, Altace, Ultram, Imdur, Lopressor, Lovaza, Symmetrel, Plavix Additional Notes: Checked in with patient. Patient reports having an okay appetite but is consuming 75-100% of meals ordered. He is receiving Ensure Enlive BID providing him with 350 calories and 20 grams of protein. He had no nutritional questions or concerns. Monitor patients labs, medications, weight, and oral intake every 5 days.
--- NOTE | 2020-07-01 13:25 | PCNSR ---
On 07/01/20, the student, Alisa Zurita, provided care and completed [facility] documentation on this patient. I have reviewed the student's documentation and agree with the findings.
--- NOTE | 2020-07-01 14:30 | PCPTNOTE ---
Miladys Gould DONNA Marrufo completed an inpatient rehab wheelchair evaluation on Leo Lucio on 07/01/2020. The patient is unable to safely and independently ambulate household distances due to their current impairments. Their diagnosis is Right hip fx-closed reduction & righ hip pinning and their impairments include decreased strength, decreased endurance, decreased range of motion, decreased balance and lower extremity weakness. Leo's weight bearing status is weight-bearing as tolerated on the bilateral lower legs. The patient demonstrates significant functional mobility limitations that impair their ability to participate in mobility-related activities of daily living (MRADLs), including toileting, feeding, dressing, grooming, and bathing in the customary locations in the home. These limitations cannot be sufficiently resolved by the use of an appropriately fitted cane or walker. It is recommended that the patient utilize a wheelchair for functional mobility within the home in order to facilitate optimal safety, independence and participation in all MRADL's and adequately access their home environment on a regular basis. The patient's home provides adequate access between rooms, maneuvering space, and surfaces to accommodate the recommended wheelchair. The use of a wheelchair for functional mobility is strongly recommended and the patient is receptive to using the wheelchair. The use of this wheelchair will significantly improve the patient's ability to participate in MRADLS and the patient will use it on a regular basis in the home. This will facilitate optimal safety, independence, and participation. The patient has demonstrated sufficient physical and mental capabilities needed to safely propel a manual wheelchair that is provided in the home during a typical day. Recommended Wheelchair Frame: 18x18 Recommended Wheelchair Size: standard Recommended Wheelchair Cushion: standard Wheelchair Leg Recommendations: bilateral elevating leg rests. -Elevating legrests are recommended because the patient has significant edema of the lower extremities that requires an elevating legrest. -Anti-tippers are recommended due to patient demonstrating increased risk for falls. They would benefit from anti-tippers with added safety and stabilization. Miladys Marrufo [employer] 07-01-2020 Evaluating Therapist Date I agree with and certify that the above recommendation is medically necessary. Referring Physician Date I agree with and certify that the above recommendation is medically necessary. Referring Physician Date
--- NOTE | 2020-07-01 14:50 | WPDNEURORHBP ---
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 Patient was discharged home and on arrival home patient slipped and fell sustaining a right hip fracture. Patient was transferred to [facility] Orthopaedic surgery and Cardiology was consulted. Patient underwent a close reduction in hip pinning on 06/21/2020 and is weight-bearing as tolerated. Patient also developed atrial fib was started on amiodarone drip and placed on oral amiodarone at time of discharge. [facility] course was significant for AFib, acute postop pain, hyponatremia, hypertension, hyperlipidemia, Parkinson's disease and acute blood loss anemia. Patient will be discharged on Plavix and Coumadin. Eventually Coumadin dosing will be taken over by [facility] anticoagulation clinic at time of discharge. Dr. [place] cardiology is considering Coumadin for roughly 2 months. Patient complains of insomnia, ongoing worsening right hip pain, ankle pain and Parkinson's disease. Review of Systems Review of Systems: All systems reviewed & are unremarkable except as noted in HPI and below Functional Status Ambulation Ability Ability to Ambulate 10 Feet: Minimum Assistance X 1 Ambulation Assistive Devices: Walker, Wheeled Exam Narrative: Exam Narrative: Head is normocephalic except for left ear and left jaw where squamous cell carcinoma was removed. External ocular muscles are intact. Affect is flat. Neck is supple. Heart rate and rhythm is regular with a 4/6 systolic ejection murmur noted. Lungs are clear to auscultation. Chest wall reveals well-healed CABG scar. Graft sites are noted to the left upper extremity. Abdomen is soft nontender positive bowel sounds. Tongue is midline. Cognition reflects mild cognitive deficits in problem solving, sequencing, and memory. Bilateral upper extremity strength are 4/5. Left lower extremity strength are 4/5. Proximal hip strength is trace to 2/5. Distal right lower extremity strength is 3+ to 4-. Patient requires Min to moderate assistance for bed mobility transfers are maximum assistance due to increased tone and tremors of Parkinson's disease. . Patient requires minimal assistance for wheelchair propulsion. Patient is at max assistance with ADLs. Objective Data Vital Signs Vital Signs: Vital Signs - 24 hr 06/30/20 18:27 06/30/20 20:21 06/30/20 21:55 Temperature 36.8 C Pulse Rate 83 88 72 Respiratory Rate 16 Blood Pressure 127/60 Pulse Oximetry 97 07/01/20 06:00 07/01/20 06:48 07/01/20 08:38 Temperature 36.7 C Pulse Rate 68 68 68 Respiratory Rate 16 Blood Pressure 137/61 Pulse Oximetry 97 07/01/20 14:00 Temperature 36.6 C Pulse Rate 72 Respiratory Rate 18 Blood Pressure 132/65 Pulse Oximetry 97 Intake/Output Intake/Output: Intake & Output 06/28/20 06/29/20 06/30/20 07/01/20 23:59 23:59 23:59 23:59 Intake Total 720 720 720 480 Balance 720 720 720 480 Meds/Results Medications: Active Medications Generic Name Dose Route Start Last Admin Trade Name Freq PRN Reason Stop Dose Admin Acetaminophen 650 mg 06/25/20 20:40 07/01/20 08:44 Acetaminophen 325 Mg Tablet PO 650 mg Q6H PRN Administration Mild Pain (1-3) Amantadine HCl 100 mg 06/26/20 09:00 07/01/20 08:39 Amantadine Hcl 100 Mg Capsule PO 100 mg BID ASHLEY Administration Amiodarone HCl 200 mg 06/26/20 09:00 07/01/20 08:38 Amiodarone Hcl 200 Mg Tablet PO 200 mg BID ASHLEY Administration Bisacodyl 5 mg 06/26/20 10:30 06/26/20 20:13 Bisacodyl 5 Mg Tablet Ec PO 5 mg QAM PRN Administration Constipation Calcium Carbonate 500 mg 06/26/20 09:00
[2020-07-01] MEDS: TAMSULOSIN HCL 0.4 MG CAPSULE PO (17:58)
[2020-07-01] MEDS: WARFARIN (*PBKC) 4 MG TABLET PO (17:58)
[2020-07-01] MEDS: MELATONIN 3 MG TABLET PO (20:29)
[2020-07-01] MEDS: OMEGA 3 POLYUNSAT FATTY ACIDS 1 GM CAP PO (20:29)
[2020-07-01] MEDS: BACLOFEN 5 MG TABLET PO (20:31)
[2020-07-02] VITALS (8 sets, daily range): BP systolic 117–139; BP diastolic 59–64; PULSE 68–86; RESP 16–18; TEMP 36.1–36.5; O2SAT 97–99
[2020-07-02] MEDS: BACLOFEN 5 MG TABLET PO ×3 (06:30→21:03)
[2020-07-02] MEDS: ISOSORBIDE MONONITRATE 30 MG TAB.ER.24H PO (06:30)
[2020-07-02] MEDS: traMADol HCL (*CRX) 50 MG TABLET PO ×2 (06:30→13:00)
[2020-07-02] MEDS: METOPROLOL TARTRATE 25 MG TABLET PO ×2 (06:30→18:30)
[2020-07-02 07:46] LABS: INR 1.8; Prothrombin Time 21.4 Seconds (11.1-14.7)
[2020-07-02] MEDS: AMIODARONE HCL 200 MG TABLET PO ×2 (09:23→17:21)
[2020-07-02] MEDS: amantadine HCL 100 MG CAPSULE PO ×2 (09:23→17:22)
[2020-07-02] MEDS: CLOPIDOGREL BISULFATE 75 MG TABLET PO (09:23)
[2020-07-02] MEDS: ramipriL 5 MG CAPSULE 10 MG PO (09:23)
[2020-07-02] MEDS: PRAVASTATIN SODIUM 20 MG TABLET PO (09:23)
[2020-07-02] MEDS: CARBIDOPA/LEVODOPA 25/250 MG TABLET 1 TABLET PO ×3 (09:24→17:23)
[2020-07-02] MEDS: DOCUSATE SODIUM 100 MG CAPSULE PO ×2 (09:24→21:04)
[2020-07-02] MEDS: polyethylene glycoL 3350 17 GM POWD.PACK PO (09:48)
--- NOTE | 2020-07-02 14:03 | WPDNEURORHBP ---
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 for an elective transesophageal echo on 06/20/2020. Patient was discharged home and on arrival home patient slipped and fell sustaining a right hip fracture. Patient was transferred to [facility] Orthopaedic surgery and Cardiology was consulted. Patient underwent a close reduction in hip pinning on 06/21/2020 and is weight-bearing as tolerated. Patient also developed atrial fib was started on amiodarone drip and placed on oral amiodarone at time of discharge. [facility] course was significant for AFib, acute postop pain, hyponatremia, hypertension, hyperlipidemia, Parkinson's disease and acute blood loss anemia. Patient will be discharged on Plavix and Coumadin. Eventually Coumadin dosing will be taken over by [facility] anticoagulation clinic at time of discharge. Dr. [place] cardiology is considering Coumadin for roughly 2 months. Patient complains of insomnia. Patient states that pain is better but later in the day, patient states that pain is 10/10. Review of Systems Review of Systems: All systems reviewed & are unremarkable except as noted in HPI and below Functional Status Ambulation Ability Ability to Ambulate 10 Feet: Minimum Assistance X 1 Ambulation Assistive Devices: Walker, Wheeled Exam Narrative: Exam Narrative: Head is normocephalic except for left ear and left jaw where squamous cell carcinoma was removed. External ocular muscles are intact. Affect is flat. Neck is supple. Heart rate and rhythm is regular with a 4/6 systolic ejection murmur noted. Lungs are clear to auscultation. Chest wall reveals well-healed CABG scar. Graft sites are noted to the left upper extremity. Abdomen is soft nontender positive bowel sounds. Tongue is midline. Cognition reflects mild cognitive deficits in problem solving, sequencing, and memory. Bilateral upper extremity strength are 4/5. Left lower extremity strength are 4/5. Proximal hip strength is trace to 2/5. Distal right lower extremity strength is 3+ to 4-. Patient requires Min to moderate assistance for bed mobility transfers are maximum assistance due to increased tone and tremors of Parkinson's disease. . Patient requires SBAfor wheelchair propulsion. Patient is at max assistance with ADLs. Patient demonstrates anxiety during therapy causing more rigidity from PD. Paitent does much better when he is relaxed. Objective Data Vital Signs Vital Signs: Vital Signs - 24 hr 07/01/20 17:57 07/01/20 17:58 07/01/20 22:00 Temperature 36.3 C L Pulse Rate 72 72 86 Respiratory Rate 16 Blood Pressure 125/60 Pulse Oximetry 98 07/02/20 06:00 07/02/20 06:30 07/02/20 08:00 Temperature 36.1 C L Pulse Rate 77 68 68 Respiratory Rate 16 16 Blood Pressure 139/61 Pulse Oximetry 99 99 07/02/20 09:23 Temperature Pulse Rate 68 Respiratory Rate Blood Pressure Pulse Oximetry Intake/Output Intake/Output: Intake & Output 06/29/20 06/30/20 07/01/20 07/02/20 23:59 23:59 23:59 23:59 Intake Total 720 720 720 360 Balance 720 720 720 360 Meds/Results Medications: Active Medications Generic Name Dose Route Start Last Admin Trade Name Freq PRN Reason Stop Dose Admin Acetaminophen 650 mg 06/25/20 20:40 07/01/20 08:44 Acetaminophen 325 Mg Tablet PO 650 mg Q6H PRN Administration Mild Pain (1-3) Amantadine HCl 100 mg 06/26/20 09:00 07/02/20 09:23 Amantadine Hcl 100 Mg Capsule PO 100 mg BID ASHLEY Administration Amiodarone HCl 200 mg 06/26/20 09:00 07/02/20 09:23 Amiodarone Hcl 200 Mg Tablet PO 200 mg BID ASHLEY Administration Baclofen 5 mg 07/01/20 22:00 07/02/20 13:00 Baclo
[2020-07-02] MEDS: TAMSULOSIN HCL 0.4 MG CAPSULE PO (17:23)
[2020-07-02] MEDS: WARFARIN (*PBKC) 5 MG TABLET PO (17:23)
[2020-07-02] MEDS: MELATONIN 3 MG TABLET PO (21:05)
[2020-07-02] MEDS: OMEGA 3 POLYUNSAT FATTY ACIDS 1 GM CAP PO (21:05)
[2020-07-03] VITALS (7 sets, daily range): BP systolic 106–140; BP diastolic 54–69; PULSE 69–73; RESP 16–18; TEMP 36.3–36.4; O2SAT 93–98
[2020-07-03 05:52] LABS: Prothrombin Time 23.3 Seconds (11.1-14.7)
[2020-07-03 05:53] LABS: Anion Gap 0 mmol/L (8-16); Blood Urea Nitrogen 26 mg/dL (9-20); Calcium 8.2 mg/dL (8.4-10.2); Carbon Dioxide 32 mmol/L (22-30); Chloride 99 mmol/L (98-107); Estimated CRCL calculation 53 ml/min; Estimated Glomerular Filt Rate > 60; Glucose 101 mg/dL (75-110); Potassium 4.5 mmol/L (3.4-5.0); Sodium 131 mmol/L (137-145)
[2020-07-03 06:00] LABS: Basophils Percent Auto 0.4 % (0.2-1.2); Eosinophils Absolute Auto 0.2 K/mm3 (0-0.3); Hematocrit 31.3 % (42.0-52.0); Hemoglobin 10.3 g/dL (14.0-18.0); Immature Granulocyte Absolute 0.05 K/mm3 (0.00-0.031); Immature Granulocyte Percent A 0.6 % (0-0.5); Lymphocytes Absolute Auto 0.74 K/mm3 (0.9-3.2); Mean Corpuscular HGB Conc 32.9 g/dl (32-36); Mean Corpuscular Hemoglobin 32.6 pg (26-34); Mean Corpuscular Volume 99.1 fl (80-100); Mean Platelet Volume 11.2 fl (7.4-10.4); Monocytes Absolute Auto 0.6 K/mm3 (0.1-0.6); Monocytes Percent Auto 6.7 % (2.6-8.5); Neutrophils Absolute Auto 6.7 K/mm3 (1.3-6.7); Neutrophils Percent Auto 81.3 % (45.5-73.1); Platelet Count Result 310 k/mm3 (150-375); Red Blood Count 3.16 M/mm3 (4.6-6.20); Red Cell Distribution Width 13.3 % (11.5-14.5); White Blood Count 8.2 K/mm3 (4.5-10.0)
[2020-07-03] MEDS: BACLOFEN 5 MG TABLET PO ×3 (06:27→22:10)
[2020-07-03] MEDS: ISOSORBIDE MONONITRATE 30 MG TAB.ER.24H PO (06:43)
[2020-07-03] MEDS: METOPROLOL TARTRATE 25 MG TABLET PO ×2 (06:43→17:37)
[2020-07-03] MEDS: traMADol HCL (*CRX) 50 MG TABLET PO ×3 (06:44→21:47)
[2020-07-03] MEDS: CARBIDOPA/LEVODOPA 25/250 MG TABLET 1 TABLET PO ×3 (09:34→17:36)
[2020-07-03] MEDS: amantadine HCL 100 MG CAPSULE PO ×2 (09:34→17:35)
[2020-07-03] MEDS: AMIODARONE HCL 200 MG TABLET PO ×2 (09:34→17:35)
[2020-07-03] MEDS: CLOPIDOGREL BISULFATE 75 MG TABLET PO (09:35)
[2020-07-03] MEDS: PRAVASTATIN SODIUM 20 MG TABLET PO (09:35)
[2020-07-03] MEDS: ramipriL 5 MG CAPSULE 10 MG PO (09:35)
[2020-07-03] MEDS: DOCUSATE SODIUM 100 MG CAPSULE PO ×2 (09:35→21:46)
[2020-07-03] MEDS: polyethylene glycoL 3350 17 GM POWD.PACK PO (09:35)
[2020-07-03] MEDS: ERGOCALCIFEROL 50,000 UNIT CAPSULE 50000 UNITS PO (09:35)
--- NOTE | 2020-07-03 13:03 | PCDIET ---
Nutrition Follow-Up Complete: Nutrition Diagnosis: Increased protein needs related to surgery as evidenced by protein recommendations of 74-88 grams of protein per day. Nutrition Goal: Patient to consume 75% or more of meals on current diet order. Goal met. Patient with average intake of 80% of meals on regular diet. Denies c/o. Reports taking Ensure Compact and Frozen Nutritional Treat between meals. Last recorded weight is 73.5 kg. Recommend obtaining new weight. Bowel Motility: Last documented BM on 07/01/20. Labs Reviewed: Hgb (10.3), Hct (31.3), BUN (26), Na (131), Ca (8.2) Meds Noted: Oscal, Colace, Sinemet, Drisdol, Plavix, Fish Oil, Ultram, Imdur, Lopressor, Coumadin, Miralax, Pravastatin Additional Notes: Surgical incision to right hip. No documented pressure sores. Will continue to monitor with same goal. Nutrition Monitoring and Evaluation: Follow up in 7 days.
--- NOTE | 2020-07-03 15:49 | WPDNEURORHBP ---
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 Patient was discharged home and on arrival home patient slipped and fell sustaining a right hip fracture. Patient was transferred to [facility] Orthopaedic surgery and Cardiology was consulted. Patient underwent a close reduction in hip pinning on 06/21/2020 and is weight-bearing as tolerated. Patient also developed atrial fib was started on amiodarone drip and placed on oral amiodarone at time of discharge. [facility] course was significant for AFib, acute postop pain, hyponatremia, hypertension, hyperlipidemia, Parkinson's disease and acute blood loss anemia. Patient will be discharged on Plavix and Coumadin. Eventually Coumadin dosing will be taken over by [facility] anticoagulation clinic at time of discharge. Dr. [place] cardiology is considering Coumadin for roughly 2 months. Patient complains of insomnia and hip pain. Patient less anxious Review of Systems Review of Systems: All systems reviewed & are unremarkable except as noted in HPI and below Functional Status Ambulation Ability Ability to Ambulate 10 Feet: Contact Guard Ambulation Assistive Devices: Walker, Wheeled Exam Narrative: Exam Narrative: Head is normocephalic except for left ear and left jaw where squamous cell carcinoma was removed. External ocular muscles are intact. Affect is flat. Neck is supple. Heart rate and rhythm is regular with a 4/6 systolic ejection murmur noted. Lungs are clear to auscultation. Chest wall reveals well-healed CABG scar. Graft sites are noted to the left upper extremity. Abdomen is soft nontender positive bowel sounds. Tongue is midline. Cognition reflects mild cognitive deficits in problem solving, sequencing, and memory. Bilateral upper extremity strength are 4/5. Left lower extremity strength are 4/5. Proximal hip strength is trace to 2/5. Distal right lower extremity strength is 3+ to 4-. Patient requires Min to moderate assistance for bed mobility transfers are moderate assistance due to increased tone and tremors of Parkinson's disease. . Patient requires SBA for wheelchair propulsion. Patient is at max assistance with ADLs. Patient demonstrates anxiety during therapy causing more rigidity from PD. Patient does much better when he is relaxed. Patient is utilizing compensatory techniques to decrease his anxiety Objective Data Vital Signs Vital Signs: Vital Signs - 24 hr 07/02/20 17:21 07/02/20 18:30 07/02/20 20:48 Temperature 36.4 C Pulse Rate 86 86 76 Respiratory Rate 18 Blood Pressure 117/59 L Pulse Oximetry 97 07/03/20 05:33 07/03/20 06:43 07/03/20 09:34 Temperature 36.4 C Pulse Rate 73 73 73 Respiratory Rate 18 Blood Pressure 140/60 Pulse Oximetry 93 07/03/20 14:00 Temperature 36.3 C L Pulse Rate 69 Respiratory Rate 16 Blood Pressure 106/69 Pulse Oximetry 98 Intake/Output Intake/Output: Intake & Output 06/30/20 07/01/20 07/02/20 07/03/20 23:59 23:59 23:59 23:59 Intake Total 720 720 840 480 Balance 720 720 840 480 Meds/Results Medications: Active Medications Generic Name Dose Route Start Last Admin Trade Name Freq PRN Reason Stop Dose Admin Acetaminophen 650 mg 06/25/20 20:40 07/01/20 08:44 Acetaminophen 325 Mg Tablet PO 650 mg Q6H PRN Administration Mild Pain (1-3) Amantadine HCl 100 mg 06/26/20 09:00 07/03/20 09:34 Amantadine Hcl 100 Mg Capsule PO 100 mg BID ASHLEY Administration Amiodarone HCl 200 mg 06/26/20 09:00 07/03/20 09:34 Amiodarone Hcl 200 Mg Tablet PO 200 mg BID ASHLEY Administration Baclofen 5 mg 07/01/20 22:00
[2020-07-03] MEDS: TAMSULOSIN HCL 0.4 MG CAPSULE PO (17:36)
[2020-07-03] MEDS: WARFARIN (*PBKC) 5 MG TABLET PO (17:37)
[2020-07-03] MEDS: OMEGA 3 POLYUNSAT FATTY ACIDS 1 GM CAP PO (21:47)
[2020-07-03] MEDS: MELATONIN 3 MG TABLET PO (22:46)
[2020-07-04] VITALS (9 sets, daily range): BP systolic 113–134; BP diastolic 52–68; PULSE 63–71; RESP 16–18; TEMP 36.2–36.4; O2SAT 97–98
[2020-07-04 05:49] LABS: INR 2.7; Prothrombin Time 29.1 Seconds (11.1-14.7)
[2020-07-04] MEDS: BACLOFEN 5 MG TABLET PO ×3 (06:06→20:52)
[2020-07-04] MEDS: METOPROLOL TARTRATE 25 MG TABLET PO ×2 (06:52→17:33)
[2020-07-04] MEDS: ISOSORBIDE MONONITRATE 30 MG TAB.ER.24H PO (06:52)
[2020-07-04] MEDS: traMADol HCL (*CRX) 50 MG TABLET PO ×3 (06:52→20:52)
[2020-07-04] MEDS: ramipriL 5 MG CAPSULE 10 MG PO (09:05)
[2020-07-04] MEDS: polyethylene glycoL 3350 17 GM POWD.PACK PO ×2 (09:05→20:52)
[2020-07-04] MEDS: CARBIDOPA/LEVODOPA 25/250 MG TABLET 1 TABLET PO ×3 (09:05→17:31)
[2020-07-04] MEDS: DOCUSATE SODIUM 100 MG CAPSULE PO ×2 (09:06→20:52)
[2020-07-04] MEDS: AMIODARONE HCL 200 MG TABLET PO ×2 (09:06→17:31)
[2020-07-04] MEDS: PRAVASTATIN SODIUM 20 MG TABLET PO (09:06)
[2020-07-04] MEDS: amantadine HCL 100 MG CAPSULE PO ×2 (09:06→17:31)
[2020-07-04] MEDS: CLOPIDOGREL BISULFATE 75 MG TABLET PO (09:06)
--- NOTE | 2020-07-04 17:16 | WPDNEURORHBP ---
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 Patient was discharged home and on arrival home patient slipped and fell sustaining a right hip fracture. Patient was transferred to [facility] Orthopaedic surgery and Cardiology was consulted. Patient underwent a close reduction in hip pinning on 06/21/2020 and is weight-bearing as tolerated. Patient also developed atrial fib was started on amiodarone drip and placed on oral amiodarone at time of discharge. [facility] course was significant for AFib, acute postop pain, hyponatremia, hypertension, hyperlipidemia, Parkinson's disease and acute blood loss anemia. Patient will be discharged on Plavix and Coumadin. Eventually Coumadin dosing will be taken over by [facility] anticoagulation clinic at time of discharge. Dr. [place] cardiology is considering Coumadin for roughly 2 months. Patient less anxious. Patient wanting more variety with food selection. Staff aware and will help with his ordering of meals. Review of Systems Review of Systems: All systems reviewed & are unremarkable except as noted in HPI and below Functional Status Ambulation Ability Ability to Ambulate 10 Feet: Contact Guard Ambulation Assistive Devices: Walker, Wheeled Exam Narrative: Exam Narrative: Head is normocephalic except for left ear and left jaw where squamous cell carcinoma was removed. External ocular muscles are intact. Affect is flat. Neck is supple. Heart rate and rhythm is regular with a 4/6 systolic ejection murmur noted. Lungs are clear to auscultation. Chest wall reveals well-healed CABG scar. Graft sites are noted to the left upper extremity. Abdomen is soft nontender positive bowel sounds. Tongue is midline. Cognition reflects mild cognitive deficits in problem solving, sequencing, and memory. Bilateral upper extremity strength are 4/5. Left lower extremity strength are 4/5. Proximal hip strength is trace to 2/5. Distal right lower extremity strength is 3+ to 4-. Transfers are much improved. Anxiety level better. Patient performs better in quiet environments. Objective Data Vital Signs Vital Signs: Vital Signs - 24 hr 07/03/20 17:35 07/03/20 17:37 07/03/20 20:56 Temperature 36.4 C Pulse Rate 69 69 71 Respiratory Rate 18 Blood Pressure 110/54 L Pulse Oximetry 96 07/04/20 05:19 07/04/20 06:51 07/04/20 06:52 Temperature 36.2 C L Pulse Rate 66 69 69 Respiratory Rate 18 Blood Pressure 113/58 L 115/60 Pulse Oximetry 97 07/04/20 09:06 07/04/20 14:00 Temperature 36.3 C L Pulse Rate 69 63 Respiratory Rate 18 Blood Pressure 115/52 L Pulse Oximetry 98 Intake/Output Intake/Output: Intake & Output 07/01/20 07/02/20 07/03/20 07/04/20 23:59 23:59 23:59 23:59 Intake Total 720 840 840 480 Balance 720 840 840 480 Meds/Results Medications: Active Medications Generic Name Dose Route Start Last Admin Trade Name Freq PRN Reason Stop Dose Admin Acetaminophen 650 mg 06/25/20 20:40 07/01/20 08:44 Acetaminophen 325 Mg Tablet PO 650 mg Q6H PRN Administration Mild Pain (1-3) Amantadine HCl 100 mg 06/26/20 09:00 07/04/20 09:06 Amantadine Hcl 100 Mg Capsule PO 100 mg BID ASHLEY Administration Amiodarone HCl 200 mg 06/26/20 09:00 07/04/20 09:06 Amiodarone Hcl 200 Mg Tablet PO 200 mg BID ASHLEY Administration Baclofen 5 mg 07/01/20 22:00 07/04/20 13:49 Baclofen 5 Mg Tablet PO 5 mg Q8HR ASHLEY Administration Bisacodyl 5 mg 06/26/20 10:30 06/26/20 20:13 Bisacodyl 5 Mg Tablet Ec PO 5 mg QAM PRN Administration Constipation Calcium Carbonate 500 mg 06/26/20 09:0
[2020-07-04] MEDS: WARFARIN (*PBKC) 4 MG TABLET PO (17:32)
[2020-07-04] MEDS: TAMSULOSIN HCL 0.4 MG CAPSULE PO (17:32)
[2020-07-04] MEDS: MELATONIN 3 MG TABLET PO (20:52)
[2020-07-04] MEDS: OMEGA 3 POLYUNSAT FATTY ACIDS 1 GM CAP PO (20:52)
[2020-07-05] VITALS (7 sets, daily range): BP systolic 120–146; BP diastolic 55–76; PULSE 63–71; RESP 16–18; TEMP 36.7–36.8; O2SAT 95–97
[2020-07-05 06:12] LABS: INR 2.8
[2020-07-05] MEDS: ISOSORBIDE MONONITRATE 30 MG TAB.ER.24H PO (06:12)
[2020-07-05] MEDS: METOPROLOL TARTRATE 25 MG TABLET PO ×2 (06:12→17:24)
[2020-07-05] MEDS: BACLOFEN 5 MG TABLET PO ×3 (06:12→20:52)
[2020-07-05] MEDS: traMADol HCL (*CRX) 50 MG TABLET PO ×3 (06:15→20:56)
[2020-07-05] MEDS: amantadine HCL 100 MG CAPSULE PO ×2 (08:58→17:22)
[2020-07-05] MEDS: CARBIDOPA/LEVODOPA 25/250 MG TABLET 1 TABLET PO ×3 (08:58→17:22)
[2020-07-05] MEDS: CLOPIDOGREL BISULFATE 75 MG TABLET PO (08:59)
[2020-07-05] MEDS: ramipriL 5 MG CAPSULE 10 MG PO (08:59)
[2020-07-05] MEDS: DOCUSATE SODIUM 100 MG CAPSULE PO ×2 (08:59→20:51)
[2020-07-05] MEDS: AMIODARONE HCL 200 MG TABLET PO ×2 (08:59→17:22)
[2020-07-05] MEDS: PRAVASTATIN SODIUM 20 MG TABLET PO (08:59)
[2020-07-05] MEDS: polyethylene glycoL 3350 17 GM POWD.PACK PO ×2 (09:00→17:23)
--- NOTE | 2020-07-05 09:31 | WPDNEURORHBP ---
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 Patient was discharged home and on arrival home patient slipped and fell sustaining a right hip fracture. Patient was transferred to [facility] Orthopaedic surgery and Cardiology was consulted. Patient underwent a close reduction in hip pinning on 06/21/2020 and is weight-bearing as tolerated. Patient also developed atrial fib was started on amiodarone drip and placed on oral amiodarone at time of discharge. [facility] course was significant for AFib, acute postop pain, hyponatremia, hypertension, hyperlipidemia, Parkinson's disease and acute blood loss anemia. Patient will be discharged on Plavix and Coumadin. Eventually Coumadin dosing will be taken over by [facility] anticoagulation clinic at time of discharge. Dr. [place] cardiology is considering Coumadin for roughly 2 months. Patient less anxious. Patient slept last night. . Review of Systems Review of Systems: All systems reviewed & are unremarkable except as noted in HPI and below Functional Status Ambulation Ability Ability to Ambulate 10 Feet: Contact Guard Ambulation Assistive Devices: Walker, Wheeled Exam Narrative: Exam Narrative: Head is normocephalic except for left ear and left jaw where squamous cell carcinoma was removed. External ocular muscles are intact. Affect is flat. Neck is supple. Heart rate and rhythm is regular with a 4/6 systolic ejection murmur noted. Lungs are clear to auscultation. Chest wall reveals well-healed CABG scar. Graft sites are noted to the left upper extremity. Abdomen is soft nontender positive bowel sounds. Tongue is midline. Cognition reflects mild cognitive deficits in problem solving, sequencing, and memory. Bilateral upper extremity strength are 4/5. Left lower extremity strength are 4/5. Proximal hip strength is trace to 2/5. Distal right lower extremity strength is 4-. Transfers are much improved. Anxiety level better. Patient performs better in quiet environments. Objective Data Vital Signs Vital Signs: Vital Signs - 24 hr 07/04/20 14:00 07/04/20 17:31 07/04/20 17:33 Temperature 36.3 C L Pulse Rate 63 63 63 Respiratory Rate 18 Blood Pressure 115/52 L Pulse Oximetry 98 07/04/20 20:00 07/04/20 21:27 07/05/20 05:16 Temperature 36.4 C 36.7 C Pulse Rate 71 71 68 Respiratory Rate 16 16 16 Blood Pressure 134/68 120/55 L Pulse Oximetry 97 97 97 07/05/20 06:12 07/05/20 08:59 Temperature Pulse Rate 68 68 Respiratory Rate Blood Pressure Pulse Oximetry Intake/Output Intake/Output: Intake & Output 07/02/20 07/03/20 07/04/20 07/05/20 23:59 23:59 23:59 23:59 Intake Total 840 840 720 240 Balance 840 840 720 240 Meds/Results Medications: Active Medications Generic Name Dose Route Start Last Admin Trade Name Freq PRN Reason Stop Dose Admin Acetaminophen 650 mg 06/25/20 20:40 07/01/20 08:44 Acetaminophen 325 Mg Tablet PO 650 mg Q6H PRN Administration Mild Pain (1-3) Amantadine HCl 100 mg 06/26/20 09:00 07/05/20 08:58 Amantadine Hcl 100 Mg Capsule PO 100 mg BID ASHLEY Administration Amiodarone HCl 200 mg 06/26/20 09:00 07/05/20 08:59 Amiodarone Hcl 200 Mg Tablet PO 200 mg BID ASHLEY Administration Baclofen 5 mg 07/01/20 22:00 07/05/20 06:12 Baclofen 5 Mg Tablet PO 5 mg Q8HR ASHLEY Administration Bisacodyl 5 mg 06/26/20 10:30 06/26/20 20:13 Bisacodyl 5 Mg Tablet Ec PO 5 mg QAM PRN Administration Constipation Calcium Carbonate 500 mg 06/26/20 09:00 07/05/20 08:59 Calcium/Vitamin D 500 Mg Tablet PO 500 mg TID ASHLEY Administrat
[2020-07-05] MEDS: WARFARIN (*PBKC) 3 MG TABLET PO (17:23)
[2020-07-05] MEDS: TAMSULOSIN HCL 0.4 MG CAPSULE PO (17:24)
[2020-07-05] MEDS: MELATONIN 3 MG TABLET PO (20:51)
[2020-07-05] MEDS: OMEGA 3 POLYUNSAT FATTY ACIDS 1 GM CAP PO (20:52)
[2020-07-06] VITALS (7 sets, daily range): BP systolic 104–162; BP diastolic 54–75; PULSE 66–87; RESP 16–18; TEMP 36.5–36.6; O2SAT 94–98
[2020-07-06 05:01] LABS: INR 2.6; Prothrombin Time 28.5 Seconds (11.1-14.7)
[2020-07-06] MEDS: BACLOFEN 5 MG TABLET PO ×3 (05:33→21:40)
[2020-07-06] MEDS: ISOSORBIDE MONONITRATE 30 MG TAB.ER.24H PO (05:34)
[2020-07-06] MEDS: METOPROLOL TARTRATE 25 MG TABLET PO ×2 (05:34→17:52)
[2020-07-06] MEDS: traMADol HCL (*CRX) 50 MG TABLET PO ×3 (05:38→20:25)
[2020-07-06] MEDS: CARBIDOPA/LEVODOPA 25/250 MG TABLET 1 TABLET PO ×3 (08:55→17:50)
[2020-07-06] MEDS: AMIODARONE HCL 200 MG TABLET PO ×2 (08:55→17:49)
[2020-07-06] MEDS: amantadine HCL 100 MG CAPSULE PO ×2 (08:55→17:50)
[2020-07-06] MEDS: DOCUSATE SODIUM 100 MG CAPSULE PO ×2 (08:56→20:25)
[2020-07-06] MEDS: CLOPIDOGREL BISULFATE 75 MG TABLET PO (08:56)
[2020-07-06] MEDS: PRAVASTATIN SODIUM 20 MG TABLET PO (08:56)
[2020-07-06] MEDS: polyethylene glycoL 3350 17 GM POWD.PACK PO ×2 (08:57→17:49)
[2020-07-06] MEDS: ramipriL 5 MG CAPSULE 10 MG PO (08:58)
--- NOTE | 2020-07-06 09:08 | WPDNEURORHBP ---
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 Patient was discharged home and on arrival home patient slipped and fell sustaining a right hip fracture. Patient was transferred to [facility] Orthopaedic surgery and Cardiology was consulted. Patient underwent a close reduction in hip pinning on 06/21/2020 and is weight-bearing as tolerated. Patient also developed atrial fib was started on amiodarone drip and placed on oral amiodarone at time of discharge. [facility] course was significant for AFib, acute postop pain, hyponatremia, hypertension, hyperlipidemia, Parkinson's disease and acute blood loss anemia. Patient will be discharged on Plavix and Coumadin. Eventually Coumadin dosing will be taken over by [facility] anticoagulation clinic at time of discharge. Dr. [place] cardiology is considering Coumadin for roughly 2 months. Patient slept last night. Patient continues to worry regarding transition home. Patient is visibly shaken that his will not be able to care for him. Patient does realize that the anxiety makes his Parkinson's worse. Patient is agreeable to anti anxiety medication. Review of Systems Review of Systems: All systems reviewed & are unremarkable except as noted in HPI and below Functional Status Ambulation Ability Ability to Ambulate 10 Feet: Contact Guard Ambulation Assistive Devices: Walker, Wheeled Exam Narrative: Exam Narrative: Head is normocephalic except for left ear and left jaw where squamous cell carcinoma was removed. External ocular muscles are intact. Affect is flat. Neck is supple. Heart rate and rhythm is regular with a 4/6 systolic ejection murmur noted. Lungs are clear to auscultation. Chest wall reveals well-healed CABG scar. Graft sites are noted to the left upper extremity. Abdomen is soft nontender positive bowel sounds. Tongue is midline. Cognition reflects mild cognitive deficits in problem solving, sequencing, and memory but in general patient has improved. Bilateral upper extremity strength are 4/5. Left lower extremity strength are 4/5. Proximal hip strength is trace to 2/5. Distal right lower extremity strength is 4-. Transfers are much improved. Anxiety level fluctuates. Patient performs better in quiet environments. Objective Data Vital Signs Vital Signs: Vital Signs - 24 hr 07/05/20 14:00 07/05/20 17:22 07/05/20 17:24 Temperature 36.8 C Pulse Rate 63 63 63 Respiratory Rate 18 Blood Pressure 126/60 Pulse Oximetry 95 07/05/20 22:00 07/06/20 05:34 07/06/20 05:47 Temperature 36.8 C 36.6 C Pulse Rate 71 82 87 Respiratory Rate 16 18 Blood Pressure 146/76 H 162/75 H Pulse Oximetry 97 94 07/06/20 08:55 Temperature Pulse Rate 87 Respiratory Rate Blood Pressure Pulse Oximetry Intake/Output Intake/Output: Intake & Output 07/03/20 07/04/20 07/05/20 07/06/20 23:59 23:59 23:59 23:59 Intake Total 840 720 720 240 Balance 840 720 720 240 Meds/Results Medications: Active Medications Generic Name Dose Route Start Last Admin Trade Name Freq PRN Reason Stop Dose Admin Acetaminophen 650 mg 06/25/20 20:40 07/01/20 08:44 Acetaminophen 325 Mg Tablet PO 650 mg Q6H PRN Administration Mild Pain (1-3) Amantadine HCl 100 mg 06/26/20 09:00 07/06/20 08:55 Amantadine Hcl 100 Mg Capsule PO 100 mg BID ASHLEY Administration Amiodarone HCl 200 mg 06/26/20 09:00 07/06/20 08:55 Amiodarone Hcl 200 Mg Tablet PO 200 mg BID ASHLEY Administration Baclofen 5 mg 07/01/20 22:00 07/06/20 05:33 Baclofen 5 Mg Tablet PO 5 mg Q8HR ASHLEY Administration Bisacodyl 5 mg 06/26/20 10
[2020-07-06] MEDS: WARFARIN (*PBKC) 3 MG TABLET PO (17:50)
[2020-07-06] MEDS: TAMSULOSIN HCL 0.4 MG CAPSULE PO (17:52)
[2020-07-06] MEDS: OMEGA 3 POLYUNSAT FATTY ACIDS 1 GM CAP PO (20:25)
[2020-07-06] MEDS: MELATONIN 3 MG TABLET PO (20:54)
[2020-07-07] VITALS (7 sets, daily range): BP systolic 121–136; BP diastolic 49–70; PULSE 64–71; RESP 16–18; TEMP 36.7–36.9; O2SAT 96–100
[2020-07-07 05:49] LABS: Prothrombin Time 31.4 Seconds (11.1-14.7)
[2020-07-07] MEDS: BACLOFEN 5 MG TABLET PO ×3 (06:00→21:10)
[2020-07-07] MEDS: ISOSORBIDE MONONITRATE 30 MG TAB.ER.24H PO (06:43)
[2020-07-07] MEDS: traMADol HCL (*CRX) 50 MG TABLET PO ×3 (06:43→21:12)
[2020-07-07] MEDS: METOPROLOL TARTRATE 25 MG TABLET PO ×2 (06:43→17:32)
[2020-07-07] MEDS: amantadine HCL 100 MG CAPSULE PO ×2 (08:35→17:30)
[2020-07-07] MEDS: polyethylene glycoL 3350 17 GM POWD.PACK PO ×2 (08:35→17:31)
[2020-07-07] MEDS: PRAVASTATIN SODIUM 20 MG TABLET PO (08:35)
[2020-07-07] MEDS: ramipriL 5 MG CAPSULE 10 MG PO (08:35)
[2020-07-07] MEDS: DOCUSATE SODIUM 100 MG CAPSULE PO ×2 (08:35→21:09)
[2020-07-07] MEDS: CARBIDOPA/LEVODOPA 25/250 MG TABLET 1 TABLET PO ×3 (08:35→17:30)
[2020-07-07] MEDS: AMIODARONE HCL 200 MG TABLET PO ×2 (08:36→17:30)
[2020-07-07] MEDS: CLOPIDOGREL BISULFATE 75 MG TABLET PO (08:36)
--- NOTE | 2020-07-07 16:28 | WPDNEURORHBP ---
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 Patient was discharged home and on arrival home patient slipped and fell sustaining a right hip fracture. Patient was transferred to [facility] Orthopaedic surgery and Cardiology was consulted. Patient underwent a close reduction in hip pinning on 06/21/2020 and is weight-bearing as tolerated. Patient also developed atrial fib was started on amiodarone drip and placed on oral amiodarone at time of discharge. [facility] course was significant for AFib, acute postop pain, hyponatremia, hypertension, hyperlipidemia, Parkinson's disease and acute blood loss anemia. Patient will be discharged on Plavix and Coumadin. Eventually Coumadin dosing will be taken over by [facility] anticoagulation clinic at time of discharge. Dr. [place] cardiology is considering Coumadin for roughly 2 months. Patient slept last night. Patient feels more confident about returning home Review of Systems Review of Systems: All systems reviewed & are unremarkable except as noted in HPI and below Functional Status Ambulation Ability Ability to Ambulate 10 Feet: Contact Guard Ambulation Assistive Devices: Walker, Wheeled Exam Narrative: Exam Narrative: Head is normocephalic except for left ear and left jaw where squamous cell carcinoma was removed. External ocular muscles are intact. Affect is brighter. Neck is supple. Heart rate and rhythm is regular with a 4/6 systolic ejection murmur noted. Lungs are clear to auscultation. Chest wall reveals well-healed CABG scar. Graft sites are noted to the left upper extremity. Abdomen is soft nontender positive bowel sounds. Tongue is midline. Cognition reflects mild cognitive deficits in problem solving, sequencing, and memory but in general patient has improved. Bilateral upper extremity strength are 4/5. Left lower extremity strength are 4/5. Proximal hip strength is trace to 3/5. Distal right lower extremity strength is 4-. Transfers are much improved. Anxiety level fluctuates. Patient performs better in quiet environments. Objective Data Vital Signs Vital Signs: Vital Signs - 24 hr 07/06/20 17:49 07/06/20 17:52 07/06/20 22:00 Temperature 36.6 C Pulse Rate 66 66 70 Respiratory Rate 16 Blood Pressure 122/54 L Pulse Oximetry 98 07/07/20 06:00 07/07/20 06:43 07/07/20 08:36 Temperature 36.9 C Pulse Rate 70 70 70 Respiratory Rate 16 Blood Pressure 136/70 Pulse Oximetry 96 07/07/20 14:00 Temperature 36.7 C Pulse Rate 71 Respiratory Rate 18 Blood Pressure 121/49 L Pulse Oximetry 100 Intake/Output Intake/Output: Intake & Output 07/04/20 07/05/20 07/06/20 07/07/20 23:59 23:59 23:59 23:59 Intake Total 720 720 720 480 Balance 720 720 720 480 Meds/Results Medications: Active Medications Generic Name Dose Route Start Last Admin Trade Name Freq PRN Reason Stop Dose Admin Acetaminophen 650 mg 06/25/20 20:40 07/01/20 08:44 Acetaminophen 325 Mg Tablet PO 650 mg Q6H PRN Administration Mild Pain (1-3) Alprazolam 0.125 mg 07/06/20 09:08 Alprazolam (*Crx) 0.25 Mg Tablet PO TID PRN Anxiety Amantadine HCl 100 mg 06/26/20 09:00 07/07/20 08:35 Amantadine Hcl 100 Mg Capsule PO 100 mg BID ASHLEY Administration Amiodarone HCl 200 mg 06/26/20 09:00 07/07/20 08:36 Amiodarone Hcl 200 Mg Tablet PO 200 mg BID ASHLEY Administration Baclofen 5 mg 07/01/20 22:00 07/07/20 14:31 Baclofen 5 Mg Tablet PO 5 mg Q8HR ASHLEY Administration Bisacodyl 5 mg 06/26/20 10:30 06/26/20 20:13 Bisacodyl 5 Mg Tablet Ec PO 5 mg QAM PRN Administration
[2020-07-07] MEDS: TAMSULOSIN HCL 0.4 MG CAPSULE PO (17:31)
[2020-07-07] MEDS: MELATONIN 3 MG TABLET PO (21:10)
[2020-07-07] MEDS: OMEGA 3 POLYUNSAT FATTY ACIDS 1 GM CAP PO (21:10)
[2020-07-08] VITALS (7 sets, daily range): BP systolic 132–152; BP diastolic 57–67; PULSE 70–90; RESP 16–18; TEMP 36.2–36.5; O2SAT 96–100
[2020-07-08 05:47] LABS: INR 3.3; Prothrombin Time 33.7 Seconds (11.1-14.7)
[2020-07-08] MEDS: ISOSORBIDE MONONITRATE 30 MG TAB.ER.24H PO (06:40)
[2020-07-08] MEDS: traMADol HCL (*CRX) 50 MG TABLET PO ×3 (06:41→21:29)
[2020-07-08] MEDS: BACLOFEN 5 MG TABLET PO ×3 (06:41→21:29)
[2020-07-08] MEDS: METOPROLOL TARTRATE 25 MG TABLET PO ×2 (06:41→18:20)
[2020-07-08] MEDS: ramipriL 5 MG CAPSULE 10 MG PO (09:31)
[2020-07-08] MEDS: PRAVASTATIN SODIUM 20 MG TABLET PO (09:31)
[2020-07-08] MEDS: polyethylene glycoL 3350 17 GM POWD.PACK PO ×2 (09:31→18:20)
[2020-07-08] MEDS: DOCUSATE SODIUM 100 MG CAPSULE PO ×2 (09:31→21:29)
[2020-07-08] MEDS: CARBIDOPA/LEVODOPA 25/250 MG TABLET 1 TABLET PO ×3 (09:32→18:20)
[2020-07-08] MEDS: amantadine HCL 100 MG CAPSULE PO ×2 (09:32→18:19)
[2020-07-08] MEDS: CLOPIDOGREL BISULFATE 75 MG TABLET PO (09:32)
[2020-07-08] MEDS: AMIODARONE HCL 200 MG TABLET PO ×2 (09:32→18:19)
--- NOTE | 2020-07-08 11:06 | PCPTNOTE ---
Shirin Holly PT completed an inpatient rehab wheelchair evaluation on [facility] on 07/08/2020. The patient is unable to safely and independently ambulate household distances due to their current impairments. Their diagnosis is Right hip fx-closed reduction & right hip pinning and their impairments include decreased strength, decreased endurance, decreased range of motion, decreased balance, lower extremity weakness. Patients weight-bearing status is as tolerated on the right lower leg. The patient demonstrates significant functional mobility limitations that impair their ability to participate in mobility-related activities of daily living (MRADLs), including toileting, feeding, dressing, grooming, and bathing in the customary locations in the home. These limitations cannot be sufficiently resolved by the use of an appropriately fitted cane or walker. It is recommended that the patient utilize a wheelchair for functional mobility within the home in order to facilitate optimal safety, independence and participation in all MRADL's and adequately access their home environment on a regular basis. The patient's home provides adequate access between rooms, maneuvering space, and surfaces to accommodate the recommended wheelchair. The use of a wheelchair for functional mobility is strongly recommended and the patient is receptive to using the wheelchair. The use of this wheelchair will significantly improve the patient's ability to participate in MRADLS and the patient will use it on a regular basis in the home. This will facilitate optimal safety, independence, and participation. The patient has demonstrated sufficient physical and mental capabilities needed to safely propel a manual wheelchair that is provided in the home during a typical day. Recommended Wheelchair Frame: standard Recommended Wheelchair Size: 18x18 Recommended Wheelchair Cushion: standard Wheelchair Leg Recommendations: B elevating leg rests - Elevating legrests are recommended because the patient has significant edema of the lower extremities that requires an elevating legrest. -Anti-tippers are recommended due to patient demonstrating increased risk for falls. They would benefit from anti-tippers with added safety and stabilization. GISELA GilbertT 07-08-20 Evaluating Therapist Date I agree with and certify that the above recommendation is medically necessary. Referring Physician Date I agree with and certify that the above recommendation is medically necessary. Referring Physician Date
--- NOTE | 2020-07-08 15:48 | WPDNEURORHBP ---
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 Patient was discharged home and on arrival home patient slipped and fell sustaining a right hip fracture. Patient was transferred to [facility] Orthopaedic surgery and Cardiology was consulted. Patient underwent a close reduction in hip pinning on 06/21/2020 and is weight-bearing as tolerated. Patient also developed atrial fib was started on amiodarone drip and placed on oral amiodarone at time of discharge. [facility] course was significant for AFib, acute postop pain, hyponatremia, hypertension, hyperlipidemia, Parkinson's disease and acute blood loss anemia. Patient will be discharged on Plavix and Coumadin. Eventually Coumadin dosing will be taken over by [facility] anticoagulation clinic at time of discharge. Dr. [place] cardiology is considering Coumadin for roughly 2 months. Patient slept last night. Patient feels more confident about returning home. Patient was present during team conference. Patient is aware that we will transition off tramadol. We will also look to decrease baclofen Review of Systems Review of Systems: All systems reviewed & are unremarkable except as noted in HPI and below Functional Status Ambulation Ability Ability to Ambulate 10 Feet: Contact Guard Ambulation Assistive Devices: Walker, Wheeled Exam Narrative: Exam Narrative: Head is normocephalic except for left ear and left jaw where squamous cell carcinoma was removed. External ocular muscles are intact. Affect is brighter. Neck is supple. Heart rate and rhythm is regular with a 4/6 systolic ejection murmur noted. Lungs are clear to auscultation. Chest wall reveals well-healed CABG scar. Graft sites are noted to the left upper extremity. Abdomen is soft nontender positive bowel sounds. Tongue is midline. Cognition reflects mild cognitive deficits in problem solving, sequencing, and memory but in general patient has improved. Bilateral upper extremity strength are 4/5. Left lower extremity strength are 4/5. Proximal hip strength is trace to 3/5. Distal right lower extremity strength is 4-. Transfers are much improved. Anxiety level fluctuates. Patient performs better in quiet environments. . Patient is at Min to moderate assistance with bed mobility. Patient is Min to contact guard with transfers. Patient is ambulating 26 ft at contact guard with a front wheel walker. Patient is at standby assistace with propulsion of wheelchair. Patient is at setup with grooming and feeding. Patient is at min assist with toileting. Patient is at min assist with lower extremity dressing and footwear. Objective Data Vital Signs Vital Signs: Vital Signs - 24 hr 07/07/20 17:30 07/07/20 17:32 07/07/20 22:00 Temperature 36.7 C Pulse Rate 71 71 64 Respiratory Rate 16 Blood Pressure 135/67 Pulse Oximetry 98 07/08/20 06:00 07/08/20 06:41 07/08/20 09:32 Temperature 36.2 C L Pulse Rate 70 84 84 Respiratory Rate 16 Blood Pressure 147/67 H Pulse Oximetry 100 07/08/20 14:00 Temperature 36.4 C L Pulse Rate 90 Respiratory Rate 18 Blood Pressure 152/62 H Pulse Oximetry 96 Intake/Output Intake/Output: Intake & Output 07/05/20 07/06/20 07/07/20 07/08/20 23:59 23:59 23:59 23:59 Intake Total 720 720 720 480 Balance 720 720 720 480 Meds/Results Medications: Active Medications Generic Name Dose Route Start Last Admin Trade Name Freq PRN Reason Stop Dose Admin Acetaminophen 650 mg 06/25/20 20:40 07/01/20 08:44 Acetaminophen 325 Mg Tablet PO 650 mg Q6H PRN Administration Mild Pain (1-3) Alprazolam 0.125 mg 07/06/20 0
[2020-07-08] MEDS: TAMSULOSIN HCL 0.4 MG CAPSULE PO (18:20)
[2020-07-08] MEDS: OMEGA 3 POLYUNSAT FATTY ACIDS 1 GM CAP PO (21:29)
[2020-07-08] MEDS: MELATONIN 3 MG TABLET PO (21:29)
[2020-07-09] VITALS (7 sets, daily range): BP systolic 135–139; BP diastolic 50–58; PULSE 68–78; RESP 18; TEMP 36.3–36.8; O2SAT 93–99
[2020-07-09 05:12] LABS: INR 2.6; Prothrombin Time 28.5 Seconds (11.1-14.7)
[2020-07-09] MEDS: BACLOFEN 5 MG TABLET PO ×3 (06:30→21:25)
[2020-07-09] MEDS: METOPROLOL TARTRATE 25 MG TABLET PO ×2 (06:31→18:15)
[2020-07-09] MEDS: ISOSORBIDE MONONITRATE 30 MG TAB.ER.24H PO (06:31)
[2020-07-09] MEDS: traMADol HCL (*CRX) 50 MG TABLET PO ×3 (06:31→21:29)
[2020-07-09] MEDS: ramipriL 5 MG CAPSULE 10 MG PO (08:29)
[2020-07-09] MEDS: polyethylene glycoL 3350 17 GM POWD.PACK PO ×2 (08:30→18:16)
[2020-07-09] MEDS: AMIODARONE HCL 200 MG TABLET PO ×2 (08:30→18:15)
[2020-07-09] MEDS: CLOPIDOGREL BISULFATE 75 MG TABLET PO (08:30)
[2020-07-09] MEDS: DOCUSATE SODIUM 100 MG CAPSULE PO ×2 (08:30→21:25)
[2020-07-09] MEDS: CARBIDOPA/LEVODOPA 25/250 MG TABLET 1 TABLET PO ×3 (08:31→18:15)
[2020-07-09] MEDS: PRAVASTATIN SODIUM 20 MG TABLET PO (08:31)
[2020-07-09] MEDS: amantadine HCL 100 MG CAPSULE PO ×2 (08:32→18:15)
--- NOTE | 2020-07-09 09:31 | WPDNEURORHBP ---
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 Patient was discharged home and on arrival home patient slipped and fell sustaining a right hip fracture. Patient was transferred to [facility] Orthopaedic surgery and Cardiology was consulted. Patient underwent a close reduction in hip pinning on 06/21/2020 and is weight-bearing as tolerated. Patient also developed atrial fib was started on amiodarone drip and placed on oral amiodarone at time of discharge. [facility] course was significant for AFib, acute postop pain, hyponatremia, hypertension, hyperlipidemia, Parkinson's disease and acute blood loss anemia. Patient will be discharged on Plavix and Coumadin. Eventually Coumadin dosing will be taken over by [facility] anticoagulation clinic at time of discharge. Dr. [place] cardiology is considering Coumadin for roughly 2 months. Patient was very nervous during family training. Patient did not perform well. Review of Systems Review of Systems: All systems reviewed & are unremarkable except as noted in HPI and below Functional Status Ambulation Ability Ability to Ambulate 10 Feet: Contact Guard Ambulation Assistive Devices: Walker, Wheeled Exam Narrative: Exam Narrative: Head is normocephalic except for left ear and left jaw where squamous cell carcinoma was removed. External ocular muscles are intact. Affect is brighter. Neck is supple. Heart rate and rhythm is regular with a 4/6 systolic ejection murmur noted. Lungs are clear to auscultation. Chest wall reveals well-healed CABG scar. Graft sites are noted to the left upper extremity. Abdomen is soft nontender positive bowel sounds. Tongue is midline. Cognition reflects mild cognitive deficits in problem solving, sequencing, and memory but in general patient has improved. Bilateral upper extremity strength are 4/5. Left lower extremity strength are 4/5. Proximal hip strength is trace to 3/5. Distal right lower extremity strength is 4-. Anxiety level is high during family conference. Patient performs better in quiet environments. . Objective Data Vital Signs Vital Signs: Vital Signs - 24 hr 07/08/20 09:32 07/08/20 14:00 07/08/20 18:19 Temperature 36.4 C L Pulse Rate 84 90 90 Respiratory Rate 18 Blood Pressure 152/62 H Pulse Oximetry 96 07/08/20 18:20 07/08/20 21:28 07/09/20 05:31 Temperature 36.5 C 36.6 C Pulse Rate 90 74 78 Respiratory Rate 18 18 Blood Pressure 132/57 L 136/50 L Pulse Oximetry 97 93 07/09/20 06:31 07/09/20 08:30 Temperature Pulse Rate 78 68 Respiratory Rate Blood Pressure Pulse Oximetry Intake/Output Intake/Output: Intake & Output 07/06/20 07/07/20 07/08/20 07/09/20 23:59 23:59 23:59 23:59 Intake Total 720 720 720 240 Balance 720 720 720 240 Meds/Results Medications: Active Medications Generic Name Dose Route Start Last Admin Trade Name Freq PRN Reason Stop Dose Admin Acetaminophen 650 mg 06/25/20 20:40 07/01/20 08:44 Acetaminophen 325 Mg Tablet PO 650 mg Q6H PRN Administration Mild Pain (1-3) Alprazolam 0.125 mg 07/06/20 09:08 Alprazolam (*Crx) 0.25 Mg Tablet PO TID PRN Anxiety Amantadine HCl 100 mg 06/26/20 09:00 07/09/20 08:32 Amantadine Hcl 100 Mg Capsule PO 100 mg BID ASHLEY Administration Amiodarone HCl 200 mg 06/26/20 09:00 07/09/20 08:30 Amiodarone Hcl 200 Mg Tablet PO 200 mg BID ASHLEY Administration Baclofen 5 mg 07/01/20 22:00 07/09/20 06:30 Baclofen 5 Mg Tablet PO 5 mg Q8HR ASHLEY Administration Bisacodyl 5 mg 06/26/20 10:30 06/26/20 20:13 Bisacodyl 5 Mg Tablet Ec PO 5 mg QAM
[2020-07-09] MEDS: ALPRAZolam (*CRX) 0.25 MG TABLET 0.125 MG PO (14:04)
[2020-07-09] MEDS: TAMSULOSIN HCL 0.4 MG CAPSULE PO (18:15)
[2020-07-09] MEDS: WARFARIN (*PBKC) 3 MG TABLET PO (18:33)
[2020-07-09] MEDS: OMEGA 3 POLYUNSAT FATTY ACIDS 1 GM CAP PO (21:25)
[2020-07-09] MEDS: MELATONIN 3 MG TABLET PO (21:25)
[2020-07-10] VITALS (10 sets, daily range): BP systolic 132–151; BP diastolic 60–70; PULSE 72–78; RESP 16–20; TEMP 36.4–36.6; O2SAT 96–98
[2020-07-10 05:37] LABS: Basophils Percent Auto 0.2 % (0.2-1.2); Eosinophils Absolute Auto 0.1 K/mm3 (0-0.3); Eosinophils Percent Auto 1.3 % (0-4.4); Hematocrit 29.4 % (42.0-52.0); Hemoglobin 9.8 g/dL (14.0-18.0); Immature Granulocyte Absolute 0.06 K/mm3 (0.00-0.031); Immature Granulocyte Percent A 0.7 % (0-0.5); Lymphocytes Absolute Auto 0.62 K/mm3 (0.9-3.2); Lymphocytes Percent Auto 7.1 % (18.3-44.2); Mean Corpuscular HGB Conc 33.3 g/dl (32-36); Mean Corpuscular Hemoglobin 31.9 pg (26-34); Mean Corpuscular Volume 95.8 fl (80-100); Monocytes Absolute Auto 0.7 K/mm3 (0.1-0.6); Monocytes Percent Auto 8.2 % (2.6-8.5); Neutrophils Absolute Auto 7.2 K/mm3 (1.3-6.7); Neutrophils Percent Auto 82.5 % (45.5-73.1); Platelet Count Result 279 k/mm3 (150-375); Red Blood Count 3.07 M/mm3 (4.6-6.20); Red Cell Distribution Width 13.6 % (11.5-14.5); White Blood Count 8.7 K/mm3 (4.5-10.0)
[2020-07-10 05:50] LABS: Anion Gap -1 mmol/L (8-16); Blood Urea Nitrogen 20 mg/dL (9-20); Calcium 8.1 mg/dL (8.4-10.2); Carbon Dioxide 33 mmol/L (22-30); Chloride 95 mmol/L (98-107); Estimated CRCL calculation 59 ml/min; Estimated Glomerular Filt Rate > 60; Glucose 116 mg/dL (75-110); Potassium 4.2 mmol/L (3.4-5.0); Sodium 127 mmol/L (137-145)
[2020-07-10] MEDS: METOPROLOL TARTRATE 25 MG TABLET PO ×2 (06:26→18:32)
[2020-07-10] MEDS: ISOSORBIDE MONONITRATE 30 MG TAB.ER.24H PO (06:29)
[2020-07-10] MEDS: BACLOFEN 5 MG TABLET PO ×3 (06:29→20:03)
[2020-07-10] MEDS: traMADol HCL (*CRX) 50 MG TABLET PO ×3 (06:31→20:05)
[2020-07-10] MEDS: AMIODARONE HCL 200 MG TABLET PO ×2 (09:06→17:21)
[2020-07-10] MEDS: amantadine HCL 100 MG CAPSULE PO ×2 (09:06→17:18)
[2020-07-10] MEDS: ERGOCALCIFEROL 50,000 UNIT CAPSULE 50000 UNITS PO (09:06)
[2020-07-10] MEDS: DOCUSATE SODIUM 100 MG CAPSULE PO ×2 (09:06→20:02)
[2020-07-10] MEDS: CARBIDOPA/LEVODOPA 25/250 MG TABLET 1 TABLET PO ×3 (09:07→17:19)
[2020-07-10] MEDS: CLOPIDOGREL BISULFATE 75 MG TABLET PO (09:07)
[2020-07-10] MEDS: PRAVASTATIN SODIUM 20 MG TABLET PO (09:07)
[2020-07-10] MEDS: ramipriL 5 MG CAPSULE 10 MG PO (09:07)
[2020-07-10] MEDS: polyethylene glycoL 3350 17 GM POWD.PACK PO (09:07)
[2020-07-10] MEDS: ALPRAZolam (*CRX) 0.25 MG TABLET 0.125 MG PO (09:08)
--- NOTE | 2020-07-10 09:27 | WPDNEURORHBP ---
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 Patient was discharged home and on arrival home patient slipped and fell sustaining a right hip fracture. Patient was transferred to [facility] Orthopaedic surgery and Cardiology was consulted. Patient underwent a close reduction in hip pinning on 06/21/2020 and is weight-bearing as tolerated. Patient also developed atrial fib was started on amiodarone drip and placed on oral amiodarone at time of discharge. [facility] course was significant for AFib, acute postop pain, hyponatremia, hypertension, hyperlipidemia, Parkinson's disease and acute blood loss anemia. Patient will be discharged on Plavix and Coumadin. Eventually Coumadin dosing will be taken over by [facility] anticoagulation clinic at time of discharge. Dr. [place] cardiology is considering Coumadin for roughly 2 months. Patient was very nervous during family training. Patient did not perform well. Pain is controlled with current meds. Ongoing hyponatremia is noted from today's labs Review of Systems Review of Systems: All systems reviewed & are unremarkable except as noted in HPI and below Functional Status Ambulation Ability Ability to Ambulate 10 Feet: Minimum Assistance X 1 Ambulation Assistive Devices: Walker, Wheeled Exam Narrative: Exam Narrative: Head is normocephalic except for left ear and left jaw where squamous cell carcinoma was removed. External ocular muscles are intact. Affect is brighter. Neck is supple. Heart rate and rhythm is regular with a 4/6 systolic ejection murmur noted. Lungs are clear to auscultation. Chest wall reveals well-healed CABG scar. Graft sites are noted to the left upper extremity. Abdomen is soft nontender positive bowel sounds. Tongue is midline. Cognition reflects mild cognitive deficits in problem solving, sequencing, and memory but in general patient has improved. Bilateral upper extremity strength are 4/5. Left lower extremity strength are 4/5. Proximal hip strength is trace to 3/5. Distal right lower extremity strength is 4-. Anxiety level is high during family conference. Patient performs better in quiet environments.Patient appears concerned about returning home. Objective Data Vital Signs Vital Signs: Vital Signs - 24 hr 07/09/20 14:00 07/09/20 18:15 07/09/20 20:00 Temperature 36.3 C L Pulse Rate 76 76 75 Respiratory Rate 18 18 Blood Pressure 139/51 L Pulse Oximetry 94 99 07/09/20 21:28 07/10/20 05:07 07/10/20 06:26 Temperature 36.8 C 36.6 C Pulse Rate 75 78 76 Respiratory Rate 18 18 Blood Pressure 135/58 L 149/69 H Pulse Oximetry 99 96 07/10/20 09:06 Temperature Pulse Rate 76 Respiratory Rate Blood Pressure Pulse Oximetry Intake/Output Intake/Output: Intake & Output 07/07/20 07/08/20 07/09/20 07/10/20 23:59 23:59 23:59 23:59 Intake Total 720 720 960 Balance 720 720 960 Meds/Results Medications: Active Medications Generic Name Dose Route Start Last Admin Trade Name Freq PRN Reason Stop Dose Admin Acetaminophen 650 mg 06/25/20 20:40 07/01/20 08:44 Acetaminophen 325 Mg Tablet PO 650 mg Q6H PRN Administration Mild Pain (1-3) Alprazolam 0.125 mg 07/06/20 09:08 07/10/20 09:08 Alprazolam (*Crx) 0.25 Mg Tablet PO 0.125 mg TID PRN Administration Anxiety Amantadine HCl 100 mg 06/26/20 09:00 07/10/20 09:06 Amantadine Hcl 100 Mg Capsule PO 100 mg BID ASHLEY Administration Amiodarone HCl 200 mg 06/26/20 09:00 07/10/20 09:06 Amiodarone Hcl 200 Mg Tablet PO 200 mg BID ASHLEY Administration Baclofen 5 mg 07/01/20 22:00 07/10/20 06:29 Ba
--- NOTE | 2020-07-10 10:26 | PC.NURSE ---
Placed call to hospitalist front end loader driver voicemail and left message regarding new consult. Waiting for return call.
--- NOTE | 2020-07-10 12:47 | PCDIET ---
Nutrition Follow-Up Complete: Nutrition Diagnosis: Increased protein needs related to surgery as evidenced by protein recommendations of 74-88 grams of protein per day Nutrition Goal: Patient to consume 75% or more of meals on current diet order. Goal met. Patient consuming 90% of meals since last review, on average, on regular diet which is appropriate. Patient reports taking supplements (Ensure Compact and Frozen Nutritional Treat) when provided. Supplement order clarified with dietary department. Patient reports early satiety but is still making an effort to eat well. Encouragement provided. Last recorded weight is 73.5 kg. Recommend obtaining new weight. Bowel Motility: Last documented BM on 07/08/20. Labs Reviewed: Hgb (9.8), Hct (29.4), Na (127), Ca (8.1) Meds Noted: Symmetrel, Sinemet, Drisdol, Fish Oil, Oscal 500 + D, Colace, Imdur, Lopressor, Miralax, Pravastatin, Altact, Coumadin Additional Notes: Right hip incision with dressing. No documented pressure sores. Will continue to monitor with same goal. Nutrition Monitoring and Evaluation: Follow up in 7 days.
[2020-07-10] MEDS: WARFARIN (*PBKC) 3 MG TABLET PO (17:19)
[2020-07-10] MEDS: TAMSULOSIN HCL 0.4 MG CAPSULE PO (17:20)
[2020-07-10] MEDS: OMEGA 3 POLYUNSAT FATTY ACIDS 1 GM CAP PO (20:02)
[2020-07-10] MEDS: MELATONIN 3 MG TABLET PO (20:02)
[2020-07-11] VITALS (9 sets, daily range): BP systolic 129–155; BP diastolic 53–70; PULSE 77–80; RESP 16–26; TEMP 36.6–37.3; O2SAT 90–97
[2020-07-11 05:24] LABS: INR 1.7; Prothrombin Time 20.7 Seconds (11.1-14.7)
[2020-07-11] MEDS: METOPROLOL TARTRATE 25 MG TABLET PO ×2 (06:33→18:43)
[2020-07-11] MEDS: BACLOFEN 5 MG TABLET PO ×3 (06:33→20:15)
[2020-07-11] MEDS: traMADol HCL (*CRX) 50 MG TABLET PO (06:33)
[2020-07-11] MEDS: ISOSORBIDE MONONITRATE 30 MG TAB.ER.24H PO (06:33)
[2020-07-11 06:43] LABS: Anion Gap 3 mmol/L (8-16); Blood Urea Nitrogen 19 mg/dL (9-20); Calcium 7.9 mg/dL (8.4-10.2); Carbon Dioxide 30 mmol/L (22-30); Chloride 94 mmol/L (98-107); Estimated CRCL calculation 59 ml/min; Estimated Glomerular Filt Rate > 60; Glucose 117 mg/dL (75-110); Potassium 4.4 mmol/L (3.4-5.0); Sodium 127 mmol/L (137-145)
[2020-07-11 07:20] LABS: Creatinine Urine 84.4 mg/dL
[2020-07-11 07:25] LABS: Add Urine Microscopic? YES; Amorphous Sediment Urine Few; Appearance Urine Cloudy (Clear); Bacteria Urine Trace /hpf; Bilirubin Urine Negative (Negative); Blood Urine Negative (Negative); Color Urine Yellow (Yellow); Glucose Urine UA Negative (Negative); Ketones Urine Negative (Negative); Leukocyte Esterase Ur Negative LEU/UL (Negative); Nitrate Urine Negative (Negative); Protein Urine 1+ mg/dL (Negative); Sodium Urine Random 71 meq/L; Squamous Epithelial Cell Urine Rare /hpf (Few); WBC Urine 0-3 /hpf
[2020-07-11] MEDS: AMIODARONE HCL 200 MG TABLET PO ×2 (09:25→16:50)
[2020-07-11] MEDS: DOCUSATE SODIUM 100 MG CAPSULE PO ×2 (09:26→20:16)
[2020-07-11] MEDS: CLOPIDOGREL BISULFATE 75 MG TABLET PO (09:26)
[2020-07-11] MEDS: ramipriL 5 MG CAPSULE 10 MG PO (09:26)
[2020-07-11] MEDS: amantadine HCL 100 MG CAPSULE PO ×2 (09:26→16:50)
[2020-07-11] MEDS: CARBIDOPA/LEVODOPA 25/250 MG TABLET 1 TABLET PO ×3 (09:26→16:49)
[2020-07-11] MEDS: polyethylene glycoL 3350 17 GM POWD.PACK PO (09:27)
[2020-07-11] MEDS: PRAVASTATIN SODIUM 20 MG TABLET PO (09:27)
--- NOTE | 2020-07-11 11:43 | WPDNEURORHBP ---
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 Patient was discharged home and on arrival home patient slipped and fell sustaining a right hip fracture. Patient was transferred to [facility] Orthopaedic surgery and Cardiology was consulted. Patient underwent a close reduction in hip pinning on 06/21/2020 and is weight-bearing as tolerated. Patient also developed atrial fib was started on amiodarone drip and placed on oral amiodarone at time of discharge. [facility] course was significant for AFib, acute postop pain, hyponatremia, hypertension, hyperlipidemia, Parkinson's disease and acute blood loss anemia. Patient will be discharged on Plavix and Coumadin. Eventually Coumadin dosing will be taken over by [facility] anticoagulation clinic at time of discharge. Dr. [place] cardiology is considering Coumadin for roughly 2 months. Patient was very nervous during family trainingthis week. Patient is less nervous but still needs a fair amount of assistance. Ongoing hyponatremia is noted from today's labs. Consult obtained Review of Systems Review of Systems: All systems reviewed & are unremarkable except as noted in HPI and below Functional Status Ambulation Ability Ability to Ambulate 10 Feet: Minimum Assistance X 1 Ambulation Assistive Devices: Walker, Wheeled Exam Narrative: Exam Narrative: Head is normocephalic except for left ear and left jaw where squamous cell carcinoma was removed. External ocular muscles are intact. Affect is brighter. Neck is supple. Heart rate and rhythm is regular with a 4/6 systolic ejection murmur noted. Lungs are clear to auscultation. Chest wall reveals well-healed CABG scar. Graft sites are noted to the left upper extremity. Abdomen is soft nontender positive bowel sounds. Tongue is midline. Cognition reflects mild cognitive deficits in problem solving, sequencing, and memory but in general patient has improved. Bilateral upper extremity strength are 4/5. Left lower extremity strength are 4/5. Proximal hip strength is trace to 3/5. Distal right lower extremity strength is 4-. is present for more training. Patient is less nervous. Objective Data Vital Signs Vital Signs: Vital Signs - 24 hr 07/10/20 14:00 07/10/20 17:21 07/10/20 18:32 Temperature 36.4 C L Pulse Rate 72 72 72 Respiratory Rate 20 Blood Pressure 141/62 H Pulse Oximetry 96 07/10/20 20:00 07/10/20 21:58 07/11/20 05:03 Temperature 36.6 C 36.6 C Pulse Rate 72 72 79 Respiratory Rate 16 16 16 Blood Pressure 151/70 H 155/70 H Pulse Oximetry 98 98 90 07/11/20 06:33 07/11/20 08:00 07/11/20 09:25 Temperature Pulse Rate 79 79 79 Respiratory Rate 16 Blood Pressure Pulse Oximetry 90 Intake/Output Intake/Output: Intake & Output 07/08/20 07/09/20 07/10/20 07/11/20 23:59 23:59 23:59 23:59 Intake Total 720 960 480 240 Balance 720 960 480 240 Meds/Results Medications: Active Medications Generic Name Dose Route Start Last Admin Trade Name Dimitri PRN Reason Stop Dose Admin Acetaminophen 650 mg 06/25/20 20:40 07/01/20 08:44 Acetaminophen 325 Mg Tablet PO 650 mg Q6H PRN Administration Mild Pain (1-3) Alprazolam 0.125 mg 07/06/20 09:08 07/10/20 09:08 Alprazolam (*Crx) 0.25 Mg Tablet PO 0.125 mg TID PRN Administration Anxiety Amantadine HCl 100 mg 06/26/20 09:00 07/11/20 09:26 Amantadine Hcl 100 Mg Capsule PO 100 mg BID ASHLEY Administration Amiodarone HCl 200 mg 06/26/20 09:00 07/11/20 09:25 Amiodarone Hcl 200 Mg Tablet PO 200 mg BID ASHLEY Administration Baclofen 5 mg 07/01/20 22:00 07/11/20 06:33
[2020-07-11] MEDS: traMADol HCL (*CRX) 25 MG TABLET PO ×2 (12:51→20:15)
[2020-07-11] MEDS: WARFARIN (*PBKC) 3 MG TABLET PO (16:47)
[2020-07-11] MEDS: TAMSULOSIN HCL 0.4 MG CAPSULE PO (16:48)
--- NOTE | 2020-07-11 19:06 | PM.IMCN ---
Assessment and Plan Assessment and plan (1) Right hip pain: Code(s): M25.551 - Pain in right hip Status: Acute (2) Aftercare following right hip joint replacement surgery: Code(s): Z47.1 - Aftercare following joint replacement surgery; Z96.641 - Presence of right artificial hip joint Status: Acute (3) Atrial fibrillation: Code(s): I48.91 - Unspecified atrial fibrillation Status: Acute (4) Parkinsons disease: Code(s): G20 - Parkinson's disease Status: Acute (5) Hypertension: Code(s): I10 - Essential (primary) hypertension Status: Acute (6) Hyperlipidemia: Code(s): E78.5 - Hyperlipidemia, unspecified Status: Acute (7) BPH (benign prostatic hyperplasia): Code(s): N40.0 - Benign prostatic hyperplasia without lower urinary tract symptoms Status: Acute (8) Coronary artery disease: Code(s): I25.10 - Atherosclerotic heart disease of [place] coronary artery without angina pectoris Status: Acute Additional Plan Status post right IM nailing Continue current rehab schedule Right hip pain pain medication Tramadol on MAR Atrial fibrillation continue home meds will check amio dose w refrigeration installer Monitor INR currently subtherapeutic Parkinson's disease Continue home medications Hypertension not consistently at goal add hydralazine PO PRN continue home meds Hyperlipidemia Continue home medication BPH Continue Flomax Coronary artery disease status post stenting and CABG will monitor closely Continue Plavix as per Cardiology request HPI Data of Consult Consult date: 07/11/20 Requesting Physician: Michelle Rice DO Primary Care Provider: Lele Taylor, Consult Narrative Narrative: Leo Lucio is a 85 year old male with past medical history significant for Parkinson's, coronary artery disease status post stenting on Plavix, hypertension, squamous cell carcinoma, hyperlipidemia, BPH, atrial fibrillation on warfarin with INR goal 2-3, who recently suffered a fall with right hip fracture and underwent closed reduction and right hip pinning on 06/21/2020 at [facility] and subsequently admitted for acute physical rehabilitation. At the time my interview patient is accompanied by his . He has no complaints other than right lower extremity pain and swelling difficulty ambulating. He notes that his right side seems to be more affected than left by his Parkinson's. He is compliant with medical therapy. Review of Systems Review of Systems: All systems reviewed & are unremarkable except as noted in HPI and below PMFSH Past Medical History Medical History (Updated 07/06/20 @ 09:12 by Michelle Rice DO) Aftercare following right hip joint replacement surgery Bowel obstruction Coronary artery disease Hyperlipidemia Hypertension Inguinal hernia Mitral regurgitation Parkinsons disease Squamous cell cancer of multiple sites of skin of upper arm Surgical History Surgical History (Updated 07/11/20 @ 19:12 by Emma Pedroza MD) Cataract extraction status Coronary artery disease involving coronary bypass graft History of appendectomy History of intestinal surgery History of tonsillectomy Stented coronary artery Family History Family History (Updated 06/26/20 @ 00:47 by Michelle Salinas RN) Father Acute myocardial infarction Mother Acute myocardial infarction Sibling Malignant neoplasm of prostate Sibling Alzheimer disease Sibling Estes's esophagus Social History Social History (Updated 06/26/20 @ 12:57 by Michelle Rice DO) Social History: patient is and has 2 children. Patient lives in a single-story home with no steps to enter. Retired [employer] employee Prior to his fall patient was independent. Patient utilized a roller walker. Smoking status: Former smoker Tobacco type: cigars Second hand tobacco smoke exposure: No
[2020-07-11] MEDS: OMEGA 3 POLYUNSAT FATTY ACIDS 1 GM CAP PO (20:15)
[2020-07-11] MEDS: MELATONIN 3 MG TABLET PO (20:16)
[2020-07-11] MEDS: WARFARIN (*PBKC) 1 MG TABLET PO (21:56)
[2020-07-12] VITALS (9 sets, daily range): BP systolic 102–156; BP diastolic 48–78; PULSE 78–100; RESP 18–32; TEMP 36.2–37.1; O2SAT 86–96
[2020-07-12 05:13] LABS: INR 1.8; Prothrombin Time 21.4 Seconds (11.1-14.7)
[2020-07-12 06:56] LABS: Basophils Percent Auto 0.1 % (0.2-1.2); Eosinophils Percent Auto 0.2 % (0-4.4); Hematocrit 28.6 % (42.0-52.0); Hemoglobin 9.7 g/dL (14.0-18.0); Immature Granulocyte Percent A 0.7 % (0-0.5); Lymphocytes Absolute Auto 0.54 K/mm3 (0.9-3.2); Lymphocytes Percent Auto 3.8 % (18.3-44.2); Mean Corpuscular HGB Conc 33.9 g/dl (32-36); Mean Corpuscular Hemoglobin 32.1 pg (26-34); Mean Corpuscular Volume 94.7 fl (80-100); Mean Platelet Volume 11.5 fl (7.4-10.4); Monocytes Absolute Auto 0.8 K/mm3 (0.1-0.6); Monocytes Percent Auto 5.5 % (2.6-8.5); Neutrophils Absolute Auto 12.8 K/mm3 (1.3-6.7); Neutrophils Percent Auto 89.7 % (45.5-73.1); Platelet Count Result 243 k/mm3 (150-375); Red Blood Count 3.02 M/mm3 (4.6-6.20); Red Cell Distribution Width 13.9 % (11.5-14.5); White Blood Count 14.3 K/mm3 (4.5-10.0)
[2020-07-12] MEDS: METOPROLOL TARTRATE 25 MG TABLET PO ×2 (06:56→17:36)
[2020-07-12] MEDS: ISOSORBIDE MONONITRATE 30 MG TAB.ER.24H PO (06:56)
[2020-07-12] MEDS: traMADol HCL (*CRX) 25 MG TABLET PO ×3 (06:56→20:21)
[2020-07-12] MEDS: BACLOFEN 5 MG TABLET PO ×3 (06:57→21:48)
[2020-07-12 07:20] LABS: Anisocytosis 1+ (NORMAL); Platelet Estimate Adequate (Adequate)
[2020-07-12] MEDS: CARBIDOPA/LEVODOPA 25/250 MG TABLET 1 TABLET PO ×3 (08:22→17:34)
[2020-07-12] MEDS: ramipriL 5 MG CAPSULE 10 MG PO (08:22)
[2020-07-12] MEDS: CLOPIDOGREL BISULFATE 75 MG TABLET PO (08:23)
[2020-07-12] MEDS: PRAVASTATIN SODIUM 20 MG TABLET PO (08:23)
[2020-07-12] MEDS: polyethylene glycoL 3350 17 GM POWD.PACK PO ×2 (08:23→17:37)
[2020-07-12] MEDS: amantadine HCL 100 MG CAPSULE PO ×2 (08:23→17:38)
[2020-07-12] MEDS: AMIODARONE HCL 200 MG TABLET PO ×2 (08:23→17:37)
[2020-07-12] MEDS: DOCUSATE SODIUM 100 MG CAPSULE PO ×2 (08:25→20:21)
--- NOTE | 2020-07-12 08:25 | ECG_ITS ---
Measurements Intervals [place] Rate: 79 P: 12 MS: 215 QRS: 20 QRSD: 110 T: 37 QT: 318 QTc: 366 Interpretive Statements SINUS RHYTHM WITH FIRST DEGREE AV BLOCK ATRIAL PREMATURE COMPLEXES DELAYED PRECORDIAL R/S TRANSITION NONSPECIFIC ST & T-WAVE ABNORMALITY- INF/LAT LEADS BASELINE ARTIFACT- I, II, III, AVR, AVL, AVF ABNORMAL ECG Electronically Signed On 07-12-2020 12:51:02 CDT by Fabien Hudson D.O.
--- NOTE | 2020-07-12 08:32 | PM.IMPN ---
Progress Note: A&P Assessment and Plan (1) Right hip pain: Code(s): M25.551 - Pain in right hip Status: Acute (2) Aftercare following right hip joint replacement surgery: Code(s): Z47.1 - Aftercare following joint replacement surgery; Z96.641 - Presence of right artificial hip joint Status: Acute (3) Atrial fibrillation: Code(s): I48.91 - Unspecified atrial fibrillation Status: Acute (4) Parkinsons disease: Code(s): G20 - Parkinson's disease Status: Acute (5) Hypertension: Code(s): I10 - Essential (primary) hypertension Status: Acute (6) Hyperlipidemia: Code(s): E78.5 - Hyperlipidemia, unspecified Status: Acute (7) BPH (benign prostatic hyperplasia): Code(s): N40.0 - Benign prostatic hyperplasia without lower urinary tract symptoms Status: Acute (8) Coronary artery disease: Code(s): I25.10 - Atherosclerotic heart disease of [place] coronary artery without angina pectoris Status: Acute (9) PNA (pneumonia): Code(s): J18.9 - Pneumonia, unspecified organism Status: Acute (10) Acute hypoxemic respiratory failure: Code(s): J96.01 - Acute respiratory failure with hypoxia Status: Acute Additional Plan Acute hypoxemic respiratory failure Stable on 3 L nasal cannula Continue supplemental oxygen PNA Currently in rehab setting will amplify spectrum and use Levaquin Close monitoring for QT prolongation while using this medication daily EKG Status post right IM nailing Continue current rehab schedule Right hip pain pain medication Tramadol on JUN Atrial fibrillation continue home meds will check amio dose w healthcare market consultant; I have called [facility] been unable to find his healthcare market consultant Monitor INR currently subtherapeutic Parkinson's disease Continue home medications Hypertension not consistently at goal add hydralazine PO PRN continue home meds Hyperlipidemia Continue home medication BPH Continue Flomax Coronary artery disease status post stenting and CABG will monitor closely Continue Plavix as per Cardiology request Time Spent With Patient Time with patient: 25 - 35 minutes Subjective Date/time seen: 07/12/20 08:32 Patient doing okay has no complaints at the time of my examination. He has noted a half increased work of breathing briefly however his oxygen saturation remained 94-95% and mild respiratory distress resolved without any intervention. He remains 3 L nasal cannula does not use home O2. Plan of care discussed with him at length all questions answered Exam Narrative: Exam Narrative: GEN: NAD, AAOx3, cooperative HEENT: NCAT, MMM, EOMI Neck: no JVD Heart: S1S2 RRR ntly Lungs: Right lower lobe crackles, mild increased work of breathing intermitte Abd: soft, NT, ND, bowel sounds normoactive Ext: moves all, no cyanosis, no clubbing, 1+ right lower extremity edema Neuro: slow cognition, no acute focal deficits Objective Data Vital Signs Vital Signs: Vital Signs - 24 hr 07/11/20 09:25 07/11/20 14:00 07/11/20 16:01 Temperature 99.1 F 98.4 F Pulse Rate 79 77 Respiratory Rate 22 H Blood Pressure 129/53 L Pulse Oximetry 97 07/11/20 16:50 07/11/20 18:43 07/11/20 22:00 Temperature 98.3 F Pulse Rate 77 77 80 Respiratory Rate 26 H Blood Pressure 133/69 Pulse Oximetry 90 07/12/20 04:52 07/12/20 06:56 Temperature 98.8 F Pulse Rate 86 86 Respiratory Rate 20 Blood Pressure 130/57 L Pulse Oximetry 93 Intake/Output Intake/Output: Intake & Output 07/09/20 07/10/20 07/11/20 07/12/20 23:59 23:59 23:59 23:59 Intake Total 033 993 8817 240 Output Total 875 400 Balance 960 480 545 -160 Meds/Results Medications: Active Medications Generic Name Dose Route Start Last Admin Trade Name Dimitriq PRN Reason Stop Dose Admin Acetaminophen 650 mg 06/25/20 20:40 07/01/20 08:44 Acetaminophen 325 Mg Tablet PO 650 mg Q6H
--- NOTE | 2020-07-12 10:02 | WPDNEURORHBP ---
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 Patient was discharged home and on arrival home patient slipped and fell sustaining a right hip fracture. Patient was transferred to [facility] Orthopaedic surgery and Cardiology was consulted. Patient underwent a close reduction in hip pinning on 06/21/2020 and is weight-bearing as tolerated. Patient also developed atrial fib was started on amiodarone drip and placed on oral amiodarone at time of discharge. [facility] course was significant for AFib, acute postop pain, hyponatremia, hypertension, hyperlipidemia, Parkinson's disease and acute blood loss anemia. Patient will be discharged on Plavix and Coumadin. Eventually Coumadin dosing will be taken over by [facility] anticoagulation clinic at time of discharge. Dr. [place] cardiology is considering Coumadin for roughly 2 months 07/12/20 . Patient voices no complaints or difficulty in breathing. Nursing notified me of O2 saturations in the 80s. Chest x-ray and blood work was obtained. Chest x-ray revealed moderate amount of upper lobe predominant acute airspace disease. Pneumonia more likely than edema. WBC elevation is noted. Hospitalists are aware and will defer treatment to the hospitalists. Review of Systems Review of Systems: All systems reviewed & are unremarkable except as noted in HPI and below Functional Status Ambulation Ability Ability to Ambulate 10 Feet: Minimum Assistance X 1 Ambulation Assistive Devices: Walker, Wheeled Exam Narrative: Exam Narrative: Head is normocephalic except for left ear and left jaw where squamous cell carcinoma was removed. External ocular muscles are intact. Affect is brighter. Neck is supple. Heart rate and rhythm is regular with a 4/6 systolic ejection murmur noted. Lungs are essentially clear to auscultation. Chest wall reveals well-healed CABG scar. Graft sites are noted to the left upper extremity. Abdomen is soft nontender positive bowel sounds. Tongue is midline. Cognition reflects mild cognitive deficits in problem solving, sequencing, and memory but in general patient has improved. Bilateral upper extremity strength are 4/5. Left lower extremity strength are 4/5. R hip strength 3+/5. Distal right lower extremity strength is 4-. Patient in no acute distress. Objective Data Vital Signs Vital Signs: Vital Signs - 24 hr 07/11/20 14:00 07/11/20 16:01 07/11/20 16:50 Temperature 37.3 C 36.9 C Pulse Rate 77 77 Respiratory Rate 22 H Blood Pressure 129/53 L Pulse Oximetry 97 07/11/20 18:43 07/11/20 22:00 07/12/20 04:52 Temperature 36.8 C 37.1 C Pulse Rate 77 80 86 Respiratory Rate 26 H 20 Blood Pressure 133/69 130/57 L Pulse Oximetry 90 93 07/12/20 06:56 07/12/20 08:23 Temperature Pulse Rate 86 86 Respiratory Rate Blood Pressure Pulse Oximetry Intake/Output Intake/Output: Intake & Output 07/09/20 07/10/20 07/11/20 07/12/20 23:59 23:59 23:59 23:59 Intake Total 058 864 2562 480 Output Total 875 400 Balance 960 480 545 80 Meds/Results Medications: Active Medications Generic Name Dose Route Start Last Admin Trade Name Freq PRN Reason Stop Dose Admin Acetaminophen 650 mg 06/25/20 20:40 07/01/20 08:44 Acetaminophen 325 Mg Tablet PO 650 mg Q6H PRN Administration Mild Pain (1-3) Alprazolam 0.125 mg 07/06/20 09:08 07/10/20 09:08 Alprazolam (*Crx) 0.25 Mg Tablet PO 0.125 mg TID PRN Administration Anxiety Amantadine HCl 100 mg 06/26/20 09:00 07/12/20 08:23 Amantadine Hcl 100 Mg Capsule PO 100 mg BID ASHLEY Administration Amiodarone HCl 200 mg 06/26/20
[2020-07-12] MEDS: AZITHROMYCIN 250 MG TABLET 500 MG PO (10:18)
[2020-07-12] MEDS: CEFDINIR 300 MG CAPSULE PO (10:18)
--- NOTE | 2020-07-12 14:19 | PCSTNOTE ---
Please refer to the Bedside Swallow Evaluation in the EMR. Please note, silent aspiration cannot be ruled out at bedside. This patient was referred for bedside swallow study due to drop in Oxygen last night and chest xray indicating pneumonia. requested that his ability to control thin liquids be assessed. Pt presented with swallowing skills that were judged to be within normal limits. He did clear his throat one time during the evaluation but not after a swallow. Voice remained clear, no coughing was noted. Recommend ST monitor swallowing ability and continue with therapy for cognitive skills. [ End ]
[2020-07-12] MEDS: TAMSULOSIN HCL 0.4 MG CAPSULE PO (17:34)
[2020-07-12] MEDS: WARFARIN (*PBKC) 3 MG TABLET PO (17:34)
[2020-07-12] MEDS: ALPRAZolam (*CRX) 0.25 MG TABLET 0.125 MG PO (17:34)
--- NOTE | 2020-07-12 18:17 | PC.NURSE ---
1750 Checking on patient when giving meds, appears anxious and is breathing heavy, short and ineffective breaths. Checked O2 saturations and found to be in the 80's on 2L, bumped O2 up to 4L and xanax given. Called Dr. Pedroza so she is aware and stated she thought it was his anxiety. I asked if she wanted breathing treatments or anything else, stated I could add a neb treatment if I wanted but does not feel that is the issue. Went back in at 1815 and appears slightly more relaxed and sats are at 90%. is at bedside and will continue to monitor.
[2020-07-12 20:20] LABS: D Dimer 1.71 ug/mL (<0.48)
[2020-07-12] MEDS: OMEGA 3 POLYUNSAT FATTY ACIDS 1 GM CAP PO (20:33)
[2020-07-12] MEDS: MELATONIN 3 MG TABLET PO (21:48)
[2020-07-12 22:05] LABS: Alveolar/Arterial O2 Gradient 544.2 mmHg; Base Excess ABG -1.3 mEq/l (+/-2.0); Device NON-REBREATHER MASK; Fractional Inspired Oxygen 90 %; HCO3 ABG 22.1 mEq/l (22.0-26.0); Oxygen Content ABG 13.9 %vol (16.0-22.0); Oxygen Saturation ABG 93.6 % (95.0-100.0); Oxyhemoglobin 91.3 % THb (90.0-100.0); PCO2 ABG 32.5 mmHg (35.0-45.0); PO2 ABG 64.2 mmHg (80.0-100.0); PO2 FiO2 Ratio Arterial Blood 0.71 %; Site Drawn RIGHT BRACHIAL; Total Hemoglobin 10.8 g/dL (12.0-18.0)
--- NOTE | 2020-07-13 00:39 | PC.NURSE ---
Patient's Nataly Garcia was notified around 2199 to give her an update on Leo's condition. Patient was transferred to IMU room 231 around 2214 and report was given to Maritza CENTENO thereafter. Nataly Bah was notified the 2nd time around 2299 to update her on his room number and his nurse's name in IMU.
--- NOTE | 2020-07-14 13:55 | PM.TDS ---
Transfer Discharge Sum: Prov Provider Date of admission: 06/25/20 18:50 Primary care physician: Lele Taylor, Admitting clinician: Michelle Rice DO Consults: 07/10/20 Consult to Physician Routine Comment: Consulting Provider: Deshaun Ferraro call center dispatcher/MD group to consult: Hospitalist group Reason for consultation: ongoing hyponatremia and new onset respiratory distress with increasing O2 needs Has provider been notified: Yes DS: Admitting Diagnosis Admitting Diagnosis Admitting Diagnosis: comminuted and minimally displaced intertrochanteric right hip fracture DS: Discharge Diagnosis Discharge Diagnosis (1) Congestive heart failure: Code(s): I50.9 - Heart failure, unspecified Status: Acute (2) Acute pulmonary edema: Code(s): J81.0 - Acute pulmonary edema Status: Acute (3) Acute hypoxemic respiratory failure: Code(s): J96.01 - Acute respiratory failure with hypoxia Status: Acute (4) PNA (pneumonia): Code(s): J18.9 - Pneumonia, unspecified organism Status: Acute (5) Anxiety about health: Code(s): F41.8 - Other specified anxiety disorders Status: Acute (6) Right hip pain: Code(s): M25.551 - Pain in right hip Status: Acute (7) Aftercare following right hip joint replacement surgery: Code(s): Z47.1 - Aftercare following joint replacement surgery; Z96.641 - Presence of right artificial hip joint Status: Acute (8) Right femoral fracture: Code(s): S72.91XA - Unspecified fracture of right femur, initial encounter for closed fracture Status: Acute (9) Insomnia: Code(s): G47.00 - Insomnia, unspecified Status: Acute (10) Atrial fibrillation: Code(s): I48.91 - Unspecified atrial fibrillation Status: Acute (11) Parkinsons disease: Code(s): G20 - Parkinson's disease Status: Acute (12) Hypertension: Code(s): I10 - Essential (primary) hypertension Status: Acute (13) Mitral regurgitation: Code(s): I34.0 - Nonrheumatic mitral (valve) insufficiency Status: Acute (14) Hyperlipidemia: Code(s): E78.5 - Hyperlipidemia, unspecified Status: Acute (15) BPH (benign prostatic hyperplasia): Code(s): N40.0 - Benign prostatic hyperplasia without lower urinary tract symptoms Status: Acute (16) Stented coronary artery: Code(s): Z95.5 - Presence of coronary angioplasty implant and graft Status: Chronic (17) Coronary artery disease involving coronary bypass graft: Code(s): I25.810 - Atherosclerosis of coronary artery bypass graft(s) without angina pectoris Status: Acute (18) Coronary artery disease: Code(s): I25.10 - Atherosclerotic heart disease of [place] coronary artery without angina pectoris Status: Acute Transfer Discharge Sum: Med Medications Active and Home Medications: Home Medications acetaminophen [Tylenol Arthritis] 650 mg PO Q6H 06/25/20 [History Confirmed 07/12/20] amantadine HCl 100 mg PO BID 06/25/20 [History Confirmed 07/12/20] amiodarone 200 mg PO BID 06/25/20 [History Confirmed 07/12/20] bisacodyl 10 mg RECTAL DAILY PRN 06/25/20 [History Confirmed 07/12/20] calcium carbonate-vitamin D2 [Oyster Shell Calcium-Vit D2] 1 tablet PO TID 06/25/20 [History Confirmed 07/12/20] carbidopa-levodopa 1 tablet PO TID 06/25/20 [History Confirmed 07/12/20] clopidogrel 75 mg PO DAILY 06/25/20 [History Confirmed 07/12/20] fluticasone propionate [Flonase] 1 spray INTRANASAL DAILY 06/25/20 [History Confirmed 07/12/20] isosorbide mononitrate 30 mg PO DAILY 06/25/20 [History Confirmed 07/12/20] metoprolol tartrate 25 mg PO BID 06/25/20 [History Confirmed 07/12/20] nitroglycerin 0.4 mg SUBLINGUAL Q5M PRN 06/25/20 [History Confirmed 07/12/20] omega-3 fatty acids [[place] 3] 1,000 mg PO HS 06/25/20 [History Confirmed 07/12/20] pravastatin 20 mg PO DAILY 06/25/20 [History Confirmed
== END 2020-07-12 22:00 | disposition short-term general hospital (02) | DRG 559 ==
PROVIDERS: Hospitalist; Internal Medicine; Admitting Provider Physical Medicine & Rehabilitation; PCP Internal Medicine; Visit Provider Nurse Practitioner
DX: S72.141D Displaced intertrochanteric fracture of right femur, subsequent encounter for closed fracture with routine healing (principal); J18.9 Pneumonia, unspecified organism; J96.01 Acute respiratory failure with hypoxia; D62 Acute posthemorrhagic anemia; E87.1 Hypo-osmolality and hyponatremia; W19.XXXD Unspecified fall, subsequent encounter; I48.91 Unspecified atrial fibrillation; E78.5 Hyperlipidemia, unspecified; G20 Parkinson's disease; I10 Essential (primary) hypertension; I25.10 Atherosclerotic heart disease of native coronary artery without angina pectoris; I34.0 Nonrheumatic mitral (valve) insufficiency; N40.0 Benign prostatic hyperplasia without lower urinary tract symptoms; Z85.828 Personal history of other malignant neoplasm of skin; Z98.890 Other specified postprocedural states; Z79.02 Long term (current) use of antithrombotics/antiplatelets; Z79.01 Long term (current) use of anticoagulants; Z87.891 Personal history of nicotine dependence; M79.604 Pain in right leg; M15.9 Polyosteoarthritis, unspecified; G47.00 Insomnia, unspecified; F41.8 Other specified anxiety disorders; Z95.1 Presence of aortocoronary bypass graft; Z95.5 Presence of coronary angioplasty implant and graft
CPT/HCPCS: 36415; 36600; 71045; 71275; 73502; 73600; 80048; 81001; 82570; 82805; 84300; 85025; 85380; 85610; 92507; 92523; 92610; 93005; 93970; 93971; 97110; 97116; 97129; 97130; 97161; 97166; 97530; 97535; 97542; A9270; Q9967

== ENCOUNTER 2020-07-12 22:47 | Inpatient (IN) | payer MEDICARE, SELFPAY ==
--- NOTE | ~2020-07-12 | XR_ITS ---
XR chest 1V portable DATE: 07/15/2020 17:45 INDICATION: Shortness of breath TECHNIQUE: Portable AP chest on 07/15/2020 at 1748 hours COMPARISON: 07/12/2020 portable AP chest at 0649 hours FINDINGS: Diffuse severe bilateral pulmonary infiltrates, increased in severity since 07/12/2020. Diagnosis includes pulmonary edema and pneumonia. Small pleural effusions. No pneumothorax. Heart size appears within normal range. Status post sternotomy. Prominent diffuse osteopenia. IMPRESSION: Prominent increased extensive bilateral pulmonary infiltrates consistent with pulmonary e cristóbal and/or pneumonia Small bilateral pleural effusions Reviewed, dictated and finalized at location A. IMPRESSION: Prominent increased extensive bilateral pulmonary infiltrates consi stent with pulmonary edema and/or pneumonia Small bilateral pleural effusions
--- NOTE | ~2020-07-12 | XR_ITS ---
EXAMINATION: XR barium swallow modified EXAM DATE: 07/13/2020 12:12 INDICATION: Dysphagia. Possible aspiration. TECHNIQUE: Modified barium esophagram was performed by myself to administered fluoroscopy, in conjun ction with speech pathologist who administered barium in varying consistencies as per speech patholog ist documentation. This was recorded on tape. Pulsed dose reduction fluoroscopy was used with fluor oscopic time of 2.2 minutes. A total of 1 images obtained for the exam. The DAP for this procedure was 1.3 Gycm2. FINDINGS: Oral stage: Adequate function. Pharyngeal phase: Reduced laryngeal elevation Laryngeal penetration: Demonstrated. Aspiration: None. Laryngeal sensitivity: Present. IMPRESSION: Oral feedings recommended as per speech pathologist. Please refer to speech pathologist findings and specific feeding recommendations. Reviewed, dictated and finalized at location A.
--- NOTE | ~2020-07-12 | XR_ITS ---
EXAMINATION: XR chest 1V portable INDICATION: Shortness of breath, pulmonary edema TECHNIQUE: Portable AP chest at 1008 hours COMPARISON: 07/15/2020 FINDINGS: Diffuse interstitial and airspace opacities persist but have improved. There is no pleural effusion or pneumothorax. The heart size is normal. Median sternotomy wires and mediastinal surgical clips are seen, likely from prior coronary artery bypass grafting. Small amount of enteric contrast m aterial from modified esophagram is noted. IMPRESSION: 1. Diffuse lung disease with interval improvement, consistent with pneumonia and/or pulmonary edema a nd/or acute respiratory distress syndrome (ARDS). Reviewed, dictated and finalized at location B. IMPRESSION: 1. Diffuse lung disease with interval improvement, consistent with pneumonia an d/or pulmonary edema and/or acute respiratory distress syndrome (ARDS).
[2020-07-12 22:40] VITALS: PULSE 106
--- NOTE | 2020-07-12 22:53 | ADMGEN ---
This patient, Leo Lucio, was admitted to IMU Room 231-01. Patient/family oriented to hospital policies and general routines including ID bracelet, bed and alarms, visiting hours, pain management, procedures, bathroom and other care routines, personal items, smoking policy, room service/diet, and visiting hours. Information on how to activate the Rapid Response Team has been discussed. Patient/Family are encouraged to report perceived risks to care and to ask questions if they do not understand what they are told or what they should do.
--- NOTE | 2020-07-12 22:54 | ECG_ITS ---
Measurements Intervals [place] Rate: 96 P: 32 MT: 218 QRS: 30 QRSD: 108 T: 28 QT: 327 QTc: 415 Interpretive Statements SINUS RHYTHM WITH SINUS ARRHYTHMIA WITH FIRST DEGREE AV BLOCK BORDERLINE ST-T WAVE ABNORMALITY- INF/LAT LEADS BASELINE ARTIFACT- II, III, AVF, V3-V6 ABNORMAL ECG Electronically Signed On 07-13-2020 7:50:30 CDT by Fabien Hudson D.O.
--- NOTE | 2020-07-12 22:54 | PM.IMHP ---
H&P: HPI History of Present Illness Date/Time: 07/12/20 22:54 this is an 85 year old patient who was admitted to the [facility] unit on 06/26/2020. The patient had a comminuted and minimally displaced intertrochanteric right hip fracture. The patient was initially evaluated at [facility] and then transferred to [facility] for further evaluation management. The patient underwent a closed reduction and hip pinning on 06/21/[address] Pettit. He was weight-bearing as tolerated. On that day the patient went into AFib and was started on an amiodarone drip and switched to p.o. amiodarone twice a day. The patient converted back to sinus rhythm. The patient has been on Plavix and Coumadin. He does carry the diagnosis of Parkinson's. The patient had a COVID test on 06/25/2020 which was negative. Today the patient was seen by the hospitalist group as a consult. The patient was found to be in acute respiratory distress. The patient was placed on 3 L per nasal cannula. He is being treated for pneumonia with p.o. azithromycin.. The patient does have a first-degree AV block on his EKG but no prolonged QT at this time. The patient had oxygen level between 94 95% with the 2 L. during my shift I was called that the patient was on a non-rebreather and struggling to breathe. His white count was noted to be 14.3. His D-dimer had been found to be elevated. I did order CT a pulmonary however I do not have the results back yet. They are still pending and is INR from today was 1.8. Did repeat the EKG and is a sinus rhythm. The patient has rhonchi bilaterally. We obtained ABGs which shows that the patient was hyperventilating. And gave him a nebulizer treatment. I also ordered IV Lasix. The patient was transferred to IMU for further evaluation overnight. And he was placed on a BiPAP 12 over 6. Patient is being admitted to inpatient IMU on the date of service of 07/12/2020. Chief Complaint: Respiratory distress Review of Systems Review of Systems: All systems reviewed & are unremarkable except as noted in HPI and below Constitutional: Constitutional: Reports as per HPI and Reports no additional constitutional complaints Eyes: Eyes: Reports as per HPI and Reports no additional eye complaints ENT: Reports system reviewed and no additional complaints, except as documented and Reports Normal hearing present Cardiovascular: Cardiovascular: Reports no additional cardiovascular complaints Respiratory: Respiratory: Reports no additional respiratory complaints and Reports no additional respiratory complaints Gastrointestinal: Gastrointestinal: Reports as per HPI and Reports no additional gastrointestinal complaints Musculoskeletal: Musculoskeletal: Reports no additional musculoskeletal complaints Integumentary/Breasts: Skin/Breast: Reports system reviewed and no additional complaints, except as docu and Reports as per HPI Neurologic: Reports system reviewed and no additional complaints, except as documented, Reports as per HPI and Reports Normal hearing present Psychiatric: Psychiatric: Reports no additional psychiatric complaints and Reports as per HPI Endocrine: Endocrine: Reports no additional endocrine complaints Hematologic/Lymphatic: Hematologic/Lymphatic: Reports no additional hematologic/lymphatic complaints Allergic/Immunologic: Allergic/Immunologic: Reports no additional allergic/immunologic complaints PMFSH Past Medical History Medical History Aftercare following right hip joint replacement surgery Bowel obstruction Coronary artery disease Hyperlipidemia Hypertension Inguinal hernia Mitral regurgitation Parkinsons disease Squamous cell cancer of multiple sites of skin of upper arm Surgical History Surgical History Cataract extraction status Coronary artery disease involving coronary bypass graft Hist
[2020-07-12 22:56] VITALS: PULSE 94; RESP 32
[2020-07-12 22:57] VITALS: PULSE 94; RESP 32; O2SAT 95
[2020-07-12 23:17] VITALS: BP 174/68; PULSE 95; RESP 14; O2SAT 96
[2020-07-12] MEDS: FUROSEMIDE INJ 40 MG/4 ML VIAL 20 MG IV PUSH (23:28)
[2020-07-13] VITALS (33 sets, daily range): BP systolic 90–144; BP diastolic 49–76; PULSE 76–126; RESP 16–36; TEMP 36.4–37.8; O2SAT 92–99
[2020-07-13 00:41] LABS: Add Urine Microscopic? YES; Appearance Urine Clear (Clear); Bacteria Urine Trace /hpf; Bilirubin Urine Negative (Negative); Blood Urine Negative (Negative); Color Urine Yellow (Yellow); Glucose Urine UA Negative (Negative); Ketones Urine Negative (Negative); Leukocyte Esterase Ur Negative LEU/UL (NEGATIVE); Nitrate Urine Negative (Negative); Protein Urine 1+ mg/dL (Negative); RBC Urine 0-2 /hpf (0-2); Urobilinogen Urine Negative mg/dL (<2.0); WBC Urine 0-3 /hpf (0-3)
[2020-07-13 00:42] LABS: Specific Grav Ur 1.034 (1.001-1.035)
[2020-07-13] MEDS: ALBUTEROL SULFATE NEB 2.5 MG/0.5 ML INH INHALATION ×4 (02:21→20:31)
[2020-07-13] MEDS: IPRATROPIUM BR 0.02% INH SOLN 0.5 MG/2.5 ML VIAL INHALATION ×4 (02:21→20:31)
[2020-07-13 06:11] LABS: Basophils Percent Auto 0.1 % (0.2-1.2); Eosinophils Percent Auto 0.1 % (0-4.4); Hematocrit 27.8 % (42.0-52.0); Hemoglobin 9.5 g/dL (14.0-18.0); Immature Granulocyte Absolute 0.14 K/mm3 (0.00-0.031); Lymphocytes Absolute Auto 0.56 K/mm3 (0.9-3.2); Lymphocytes Percent Auto 3.9 % (18.3-44.2); Mean Corpuscular HGB Conc 34.2 g/dl (32-36); Mean Corpuscular Hemoglobin 31.9 pg (26-34); Mean Corpuscular Volume 93.3 fl (80-100); Mean Platelet Volume 10.7 fl (7.4-10.4); Monocytes Absolute Auto 0.7 K/mm3 (0.1-0.6); Neutrophils Percent Auto 89.9 % (45.5-73.1); Platelet Count Result 212 k/mm3 (150-375); Red Blood Count 2.98 M/mm3 (4.6-6.20); Red Cell Distribution Width 14.1 % (11.5-14.5); White Blood Count 14.5 K/mm3 (4.5-10.0)
[2020-07-13 06:20] LABS: INR 2.2; Prothrombin Time 24.6 Seconds (11.1-14.7)
[2020-07-13 06:33] LABS: Alanine Aminotransferase 20 U/L (4-50); Albumin Level 2.8 g/dL (3.5-5.1); Alkaline Phosphatase 148 U/L (38-126); Anion Gap 4 mmol/L (8-16); Aspartate Amino Transferase 45 U/L (17-59); Bilirubin,Total 1.1 mg/dL (0.2-1.3); Blood Urea Nitrogen 23 mg/dL (9-20); Calcium 7.9 mg/dL (8.4-10.2); Carbon Dioxide 27 mmol/L (22-30); Chloride 94 mmol/L (98-107); Estimated Glomerular Filt Rate > 60; Glucose 114 mg/dL (75-110); Lactate Dehydrogenase 816 U/L (313-618); Potassium 4.2 mmol/L (3.4-5.0); Sodium 125 mmol/L (137-145)
[2020-07-13 06:54] LABS: Platelet Estimate Adequate (Adequate)
[2020-07-13 06:55] LABS: Anisocytosis 1+ (NORMAL); Hypochromasia 1+ (NORMAL)
--- NOTE | 2020-07-13 07:44 | PM.IMPN ---
Progress Note: A&P Assessment and Plan (1) Acute hypoxemic respiratory failure: Code(s): J96.01 - Acute respiratory failure with hypoxia Status: Acute Assessment and Plan: The patient had been maintaining on 2-3 L of oxygen. However the patient was desatting down in the 80s and had to be placed on a non-rebreather. The patient was struggling with respiratory effort with respirations 32-40 respirations per minute. The patient has been treated for pneumonia. The patient was placed on a BiPAP and Lasix had been ordered for the patient. 07/13/20 Patient with bilateral pleural effusions and edema as well as signs of pneumonia on CT imaging. BMP has been ordered echocardiogram has been ordered. Troponin ordered. He remains stable on BiPAP saturating 100% will wean from BiPAP as tolerated (2) Acute pulmonary edema: Code(s): J81.0 - Acute pulmonary edema Status: Acute Assessment and Plan: secondary to CHF (3) Congestive heart failure: Code(s): I50.9 - Heart failure, unspecified Status: Acute Assessment and Plan: elevated BNP, h/o of flail MV (4) Mitral regurgitation: Code(s): I34.0 - Nonrheumatic mitral (valve) insufficiency Status: Acute Assessment and Plan: 06/20/2020. LONNIE revealed a flail to posterior mitral valve leaflet with torn chordae tendonae and severe mitral regurgitation (5) PNA (pneumonia): Code(s): J18.9 - Pneumonia, unspecified organism Status: Acute Assessment and Plan: According to these towards shipped antibiotics for healthcare associated pneumonia Zosyn was the 1st line. So I did change him to Zosyn IV. Will continue with neb treatments. Will get a sputum and blood cultures. 07/13/20 Patient previously on Levaquin while in PT rehab, however, suspect that he may have aspirated and he is on Zosyn at present. Less inclined to believe he has contracted Coronavirus (6) Atrial fibrillation: Code(s): I48.91 - Unspecified atrial fibrillation Status: Acute Assessment and Plan: The patient had been converted with medication prior to coming to [facility]. The patient is on Coumadin will continue with daily PT INR. Drip and was transitioned to p.o. his amiodarone. He is now in sinus rhythm. He does have a first-degree block. Continue with metoprolol 07/13/20 Patient on amiodarone and Coumadin INR has been subtherapeutic currently 2.2. Right lower extremity ultrasound pending (7) Parkinsons disease: Code(s): G20 - Parkinson's disease Status: Acute Assessment and Plan: Continue with carbidopa levodopa. 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 Patient will need to continue with PT and OT as patient's respiratory status improves. At this moment the patient will not be able to continue with his therapy due to his respiratory status. Time Spent With Patient Time with patient: Greater than 35 minutes Subjective Date/time seen: 07/13/20 07:44 Patient with acute respiratory distress yesterday evening in rehab, and was transferred to IMU. Pneumonia had been found earlier on chest x-ray and patient had received 750 mg of Levaquin p.o. at around 230 in the afternoon. Around 730pm he was noted to be hyperventilating with increased work of breathing and transferred to medical floor and maintained on BiPAP. At the time my interview patient has no complaints. He is toleratin
[2020-07-13 08:16] LABS: NT Pro B Type Natriuretic Pept 4480 PG/ML (5-100)
[2020-07-13] MEDS: FUROSEMIDE INJ 40 MG/4 ML VIAL IV PUSH ×2 (09:36→17:42)
--- NOTE | 2020-07-13 11:09 | ECG_ITS ---
Measurements Intervals [place] Rate: 102 P: SC: 0 QRS: 30 QRSD: 109 T: -40 QT: 338 QTc: 440 Interpretive Statements ATRIAL FIBRILLATION WITH RAPID VENTRICULAR RESPONSE NONSPECIFIC ST & T-WAVE ABNORMALITY- DIFFUSE LEADS BASELINE ARTIFACT- I, II, III, AVF, V4-V6 ABNORMAL ECG Electronically Signed On 07-13-2020 14:28:30 CDT by Fabien Hudson D.O.
--- NOTE | 2020-07-13 11:29 | PC.NURSE ---
Patient noted on telemetry to be in afib, converting from sinus rhythm. EKG obtained for confirmation, Dr. Pedroza notified. Patient denies chest pain or shortness of breath.
[2020-07-13 11:40] LABS: Troponin I 0.051 ng/mL (0.000-0.034)
--- NOTE | 2020-07-13 13:17 | PCSTNOTE ---
Please refer to the Modified Barium Swallow Evaluation in the EMR.
[2020-07-13] MEDS: ACETAMINOPHEN 325 MG TABLET 650 MG PO ×3 (13:20→23:24)
[2020-07-13] MEDS: CLOPIDOGREL BISULFATE 75 MG TABLET PO (13:21)
[2020-07-13] MEDS: ramipriL 5 MG CAPSULE 10 MG PO (13:21)
[2020-07-13] MEDS: PRAVASTATIN SODIUM 20 MG TABLET PO (13:22)
[2020-07-13] MEDS: METOPROLOL TARTRATE 25 MG TABLET PO ×2 (13:22→20:52)
[2020-07-13] MEDS: CARBIDOPA/LEVODOPA 25/250 MG TABLET 1 TABLET PO ×2 (13:22→17:42)
[2020-07-13] MEDS: AMIODARONE HCL 200 MG TABLET PO (13:23)
[2020-07-13] MEDS: FLUTICASONE PROPIONATE 0.05% NA SPR 16 GM BTL (*BKC) 1 SPRAY NASAL (13:23)
[2020-07-13] MEDS: ISOSORBIDE MONONITRATE 30 MG TAB.ER.24H PO (13:24)
[2020-07-13] MEDS: amantadine HCL 100 MG CAPSULE PO ×2 (13:25→17:41)
--- NOTE | 2020-07-13 14:42 | PM.CNCAR ---
Assessment and Plan Assessment and plan (1) Acute hypoxemic respiratory failure: Code(s): J96.01 - Acute respiratory failure with hypoxia Status: Acute Assessment and Plan: Improved with diuretics, O2 supplementation. Precise etiology of acute pulmonary edema remains unclear, however, given murmur suggestive of significant mitral regurgitation and patient report this is most likely primary contributor. Need review prior records for clarification. Repeat 2D echocardiogram in a.m.. CTA negative for PE. Pulmonary vascular congestion most likely, radiology could not exclude pneumonia. (2) Acute pulmonary edema: Code(s): J81.0 - Acute pulmonary edema Status: Acute Assessment and Plan: As above, continue IV diuresis, monitor renal function, electrolytes, sodium, input and output, daily weight. Patient clinically improved yet mildly volume overload with crackles on exam. (3) Mitral regurgitation: Code(s): I34.0 - Nonrheumatic mitral (valve) insufficiency Status: Acute Assessment and Plan: Examination suggests severe mitral regurgitation. Need prior documentation for clarification. Repeat 2D echocardiogram. Review prior records unavailable as requested. Discussed possibility of transfer to [facility] for further management of his severe mitral regurgitation depending on clinical circumstances. Further recommendations in this regard to follow. (4) Atrial fibrillation: Code(s): I48.91 - Unspecified atrial fibrillation Status: Acute Assessment and Plan: Of note, it does not appear patient was in an atrial tachyarrhythmia at time of decompensation. Atrial fibrillation with RVR this morning, currently atrial flutter with variable AV block. Begin IV amiodarone for heart rate control. Continue systemic anticoagulation goal INR 2-3. (5) Coronary artery disease involving coronary bypass graft: Code(s): I25.810 - Atherosclerosis of coronary artery bypass graft(s) without angina pectoris Status: Acute Assessment and Plan: Minimal troponin elevation most likely type 2 infarct secondary to acute hypoxic respiratory failure, pulmonary edema secondary to acute decompensated heart failure contributed by severe mitral regurgitation. Trend troponins. Review prior cardiovascular records. Continue clopidogrel, systemic anticoagulation for now. (6) Hypertension: Code(s): I10 - Essential (primary) hypertension Status: Acute Assessment and Plan: Previously elevated but better controlled now. Ramipril, Imdur, metoprolol tartrate 25 mg twice daily. History of Present Illness History of Present Illness Consult date/time: Date of service: 07/13/20 14:42 Cardiology consultation at the request of Dr. Pedroza for our opinion regarding acute CHF, atrial fibrillation, and systolic murmur. Requesting physician: Emma Pedroza MD Consult reason: atrial fibrillation and congestive heart failure Reason For Visit: Hypoxia Narrative: Patient is a very pleasant 85-year-old male who suffered a fall resulting in a comminuted displaced intertrochanteric right hip fracture status post pinning on 06/21/2020 at [facility]. He was then admitted to [facility] 06/26/2020 for rehabilitation. Per electronic medical record previous hospitalization he developed atrial fibrillation for which he was initiated on amiodarone infusion followed by an oral regimen on warfarin. He was noted be in sinus rhythm upon admission and recently. Reportedly had been doing reasonably well but developed progressive shortness of breath over the preceding 24 hours and developed acute respiratory failure and hypoxia with eventual non-rebreather. Chest x-ray revealed pulmonary vascular congestion and CT angiogram of the chest revealed limited study but no pulmonary emboli, extensive bilateral ground-glass opacities particularly upper lobes where it was interpreted as infection and or e
[2020-07-13] MEDS: AMIODARONE 150 MG/D5W 100 ML 150 MG/100 ML BAG 600 MG IV CONT (14:52)
[2020-07-13 15:02] LABS: Troponin I 0.045 ng/mL (0.000-0.034)
--- NOTE | 2020-07-13 15:56 | ECG_ITS ---
Measurements Intervals [place] Rate: 116 P: MS: 0 QRS: 50 QRSD: 110 T: -70 QT: 346 QTc: 482 Interpretive Statements ATRIAL FLUTTER/TACHYCARDIA WITH RAPID VENTRICULAR RESPONSE POSSIBLE LEFT VENTRICULAR HYPERTROPHY BORDERLINE ST-T WAVE ABNORMALITY- ANTEROLAT/INF LEADS BASELINE ARTIFACT- I, II, AVR, AVF, V6 ABNORMAL ECG Electronically Signed On 07-14-2020 11:59:13 CDT by Fabien Hudson D.O.
[2020-07-13] MEDS: AMIODARONE 360 MG/D5W 200 ML 360 MG/200 ML BAG 33.33 MG IV CONT (16:49)
[2020-07-13] MEDS: TAMSULOSIN HCL 0.4 MG CAPSULE PO (17:44)
[2020-07-13] MEDS: WARFARIN (*PBKC) 2 MG TABLET PO (17:44)
[2020-07-13] MEDS: OMEGA 3 POLYUNSAT FATTY ACIDS 1 GM CAP PO (20:52)
[2020-07-13] MEDS: AMIODARONE 360 MG/D5W 200 ML 360 MG/200 ML BAG 16.67 MG IV CONT (22:34)
[2020-07-14] VITALS (28 sets, daily range): BP systolic 103–134; BP diastolic 63–88; PULSE 10–129; RESP 16–36; TEMP 36.5–37; O2SAT 92–98
[2020-07-14] MEDS: ALBUTEROL SULFATE NEB 2.5 MG/0.5 ML INH INHALATION ×4 (02:26→20:38)
[2020-07-14] MEDS: IPRATROPIUM BR 0.02% INH SOLN 0.5 MG/2.5 ML VIAL INHALATION ×4 (02:26→20:39)
[2020-07-14] MEDS: ACETAMINOPHEN 325 MG TABLET 650 MG PO ×4 (05:20→23:57)
[2020-07-14 05:36] LABS: Prothrombin Time 31.3 Seconds (11.1-14.7)
[2020-07-14 05:43] LABS: Alanine Aminotransferase 28 U/L (4-50); Albumin Level 2.5 g/dL (3.5-5.1); Alkaline Phosphatase 161 U/L (38-126); Anion Gap 4 mmol/L (8-16); Aspartate Amino Transferase 105 U/L (17-59); Bilirubin,Total 1.1 mg/dL (0.2-1.3); Blood Urea Nitrogen 26 mg/dL (9-20); Calcium 7.7 mg/dL (8.4-10.2); Carbon Dioxide 32 mmol/L (22-30); Chloride 92 mmol/L (98-107); Estimated Glomerular Filt Rate > 60; Glucose 121 mg/dL (75-110); Magnesium 1.9 mg/dL (1.6-2.3); Potassium 3.6 mmol/L (3.4-5.0); Sodium 128 mmol/L (137-145)
[2020-07-14] MEDS: FLUTICASONE PROPIONATE 0.05% NA SPR 16 GM BTL (*BKC) 1 SPRAY NASAL (09:21)
[2020-07-14] MEDS: CARBIDOPA/LEVODOPA 25/250 MG TABLET 1 TABLET PO ×3 (09:22→17:25)
[2020-07-14] MEDS: METOPROLOL TARTRATE 25 MG TABLET PO ×2 (09:23→21:41)
[2020-07-14] MEDS: PRAVASTATIN SODIUM 20 MG TABLET PO (09:23)
[2020-07-14] MEDS: ISOSORBIDE MONONITRATE 30 MG TAB.ER.24H PO (09:23)
[2020-07-14] MEDS: ramipriL 5 MG CAPSULE 10 MG PO (09:23)
[2020-07-14] MEDS: CLOPIDOGREL BISULFATE 75 MG TABLET PO (09:23)
[2020-07-14] MEDS: amantadine HCL 100 MG CAPSULE PO ×2 (09:24→17:25)
[2020-07-14] MEDS: FUROSEMIDE INJ 40 MG/4 ML VIAL IV PUSH ×2 (09:24→17:24)
[2020-07-14] MEDS: AMIODARONE 360 MG/D5W 200 ML 360 MG/200 ML BAG 16.67 MG IV CONT ×2 (11:52→23:56)
--- NOTE | 2020-07-14 12:09 | PM.PNCARD ---
Progress Note: A&P Additional Plan 85-year-old man with: Congestive heart failure/pulmonary congestion occurring while he is here we having from his fall/hip fracture.. 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 He was in sinus rhythm a couple of days ago is now in atrial flutter with controlled response still receiving amiodarone intravenously. One would hope that as he is loaded with IV amiodarone he will be restored into sinus rhythm medically. If not a DC cardioversion can certainly be performed. If he does have significant mitral valve regurgitation and consequently developed atrial fib/flutter this presumably is the etiology of his decompensation. Cedric Mandujano MD [facility] Subjective Date/time seen: Date of service: 07/14/20 12:09 Interval history: 85-year-old man with: Significant shortness of breath pulmonary congestion in this man with a history of ischemic heart disease mitral valve regurgitation recent development of atrial fib/atrial flutter within the last 48 hours. Patient is here rehabbing from repair of hip fracture sustained in a fall. Receiving intravenous amiodarone. Still in atrial flutter heart rate is reasonably well controlled. He is resting comfortably and is not really symptomatic at the moment. Exam Narrative: Exam Narrative: General: Very pleasant elderly WM NAD A&Ox3, appears fatigued, mildly dyspneic with conversation, lying in bed 45 degree angle, cooperative, well developed. Head: atraumatic, normocephalic Eyes: EOM intact, sclerae anicteric, conjunctivae unremarkable Ears/Nose: external inspection of ears and nose were grossly normal Mouth/Throat: oral mucosa pink and moist Neck: supple, normal range of motion, no jugular venous distention or carotid bruits, thyroid nonpalpable, trachea midline. Cardiac: Regular rate and rhythm, normal S1-S2, no murmurs, clicks, gallops, or rubs. Lungs: Clear to auscultation bilaterally, no rales, wheezes, or rhonchi. Abdomen: Soft, nontender, nondistended, positive bowel sounds throughout. No appreciable hepatosplenomegaly, no rebound guarding or rigidity noted. Abdominal aorta nonpalpable, no appreciable bruits. Extremities: No edema, clubbing, and or cyanosis. Extremities warm and well perfused. Skin: Warm and dry without ecchymoses, rashes, and/or petechiae. Musculoskeletal: Muscle strength and tone intact throughout without obvious deformities. Vascular: Carotid upstrokes 2+ bilaterally, radial pulses 2+ bilaterally, dorsalis pedis pulses 2+ bilaterally, posterior tibialis pulses palpable bilaterally. Neurologic: Cranial nerves 2-12 grossly intact, examination grossly nonfocal Pscyhiatric: Mood calm and appropriate. Resp: Effort & Inspection: normal respiratory effort Other: Scant crackles noted at the bases bilaterally Cardio: Rhythm: abnormal rhythm irregularly irregular Objective Data Vital Signs Vital Signs: Vital Signs - 24 hr 07/13/20 12:31 07/13/20 13:22 07/13/20 13:23 Temperature 37.0 C Pulse Rate 97 111 H 112 H Respiratory Rate 36 H Blood Pressure 126/72 Pulse Oximetry 98 07/13/20 14:00 07/13/20 14:09 07/13/20 14:52 Temperature Pulse Rate 116 H 107 H 112 H Respiratory Rate 24 H Blood Pressure Pulse Oximetry 97 07/13/20 16:00 07/13/20 16:45 07/13/20 16:49 Temperature 36.5 C Pulse Rate 119 H 116 H 110 H Respiratory Rate 24 H Blood Pressure 123/67 Pulse Oximetry 98 96 07/13/20 18:00 07/13/20 19:54 07/13/20 20:00 Temperature 36.4 C L Pulse Rate 101 H 82 104 H Respiratory Rate 16 24 H Blood Pressure 90/49 L Pulse Oximetry 94 95 07/13/20 20:32 07/13/20 20:40 07/13/20 20:48 Temperature Pulse Rate 84 86 99 Respiratory Rate 22 H 24 H Blood Pressure Pulse Oximetry 93 07/13/20 20:52 07/13/20 22:00
[2020-07-14] MEDS: TAMSULOSIN HCL 0.4 MG CAPSULE PO (17:25)
[2020-07-14] MEDS: WARFARIN (*PBKC) 2 MG TABLET PO (17:25)
--- NOTE | 2020-07-14 18:00 | PM.IMPN ---
Progress Note: A&P Assessment and Plan (1) Acute hypoxemic respiratory failure: Code(s): J96.01 - Acute respiratory failure with hypoxia Status: Acute Assessment and Plan: The patient had been maintaining on 2-3 L of oxygen. However the patient was desatting down in the 80s and had to be placed on a non-rebreather. The patient was struggling with respiratory effort with respirations 32-40 respirations per minute. The patient has been treated for pneumonia. The patient was placed on a BiPAP and Lasix had been ordered for the patient. 07/14/20 18:10 Patient 85-year-old male presented with a complaint cough shortness of breath CT of the chest did not show pulmonary emboli suspect patient has ground-glass apparent bilateral suspicious COVID-19, patient is isolated and test is pending. Patient is also treated with Zosyn for possible secondary pneumonia, patient is off BiPAP now on high-flow nasal cannula, plan to productive cough but denies any fever or chills (2) Acute pulmonary edema: Code(s): J81.0 - Acute pulmonary edema Status: Acute Assessment and Plan: secondary to CHF (3) Congestive heart failure: Code(s): I50.9 - Heart failure, unspecified Status: Acute Assessment and Plan: elevated BNP, h/o of flail MV (4) Mitral regurgitation: Code(s): I34.0 - Nonrheumatic mitral (valve) insufficiency Status: Acute Assessment and Plan: 06/20/2020. LONNIE revealed a flail to posterior mitral valve leaflet with torn chordae tendonae and severe mitral regurgitation (5) PNA (pneumonia): Code(s): J18.9 - Pneumonia, unspecified organism Status: Acute Assessment and Plan: According to these towards shipped antibiotics for healthcare associated pneumonia Zosyn was the 1st line. So I did change him to Zosyn IV. Will continue with neb treatments. Will get a sputum and blood cultures. 07/13/20 Patient previously on Levaquin while in PT rehab, however, suspect that he may have aspirated and he is on Zosyn at present. Less inclined to believe he has contracted Coronavirus (6) Atrial fibrillation: Code(s): I48.91 - Unspecified atrial fibrillation Status: Acute Assessment and Plan: The patient had been converted with medication prior to coming to [facility]. The patient is on Coumadin will continue with daily PT INR. Drip and was transitioned to p.o. his amiodarone. He is now in sinus rhythm. He does have a first-degree block. Continue with metoprolol 07/13/20 Patient on amiodarone and Coumadin INR has been subtherapeutic currently 2.2. Right lower extremity ultrasound pending (7) Parkinsons disease: Code(s): G20 - Parkinson's disease Status: Acute Assessment and Plan: Continue with carbidopa levodopa. 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 Patient will need to continue with PT and OT as patient's respiratory status improves. At this moment the patient will not be able to continue with his therapy due to his respiratory status. Subjective Date/time seen: 07/14/20 18:10 Patient 85-year-old male presented with a complaint cough shortness of breath CT of the chest did not show pulmonary emboli suspect patient has ground-glass apparent bilateral suspicious COVID-19, patient is isolated and test is pending. Patient is also treated with Zosyn for possible secondary pneumonia, patient is off BiPA
[2020-07-14 19:43] LABS: SARS-CoV-2 RNA PCR Negative
[2020-07-14] MEDS: OMEGA 3 POLYUNSAT FATTY ACIDS 1 GM CAP PO (21:41)
[2020-07-15] VITALS (27 sets, daily range): BP systolic 116–151; BP diastolic 74–84; PULSE 96–142; RESP 20–36; TEMP 36.5–36.7; O2SAT 80–99; BMI 25.9
--- NOTE | 2020-07-15 | ECHO_ITS ---
Patient Info Name: Leo Lucio Age: 85 years : 1935 Gender: Male Ht: 68 in Wt: 167 lbs BSA: 1.92 m2 HR: 101 bpm BP: 133 / 80 mmHg Heart Rhythm: Atrial Fibrillation Technical Quality: Good Exam Date: 07/15/2020 9:35 AM Exam Location: [facility] Patient Status: Inpatient Admit Date: 07/12/2020 Staff Ordering Physician: Emma Pedroza MD [employer] Machine Operator: Sharonda Cain RDCS Attending Provider: Sudhakar Thomas MD Exam Type: CA echo doppler color flow Study Info Indications I50.9 - Heart failure, unspecified Complete two-dimensional, color flow and Doppler transthoracic echocardiogram is performed. Summary 1. Complete two-dimensional, color flow and Doppler transthoracic echocardiogram is performed. 2. Normal left ventricular size with mild concentric left ventricular hypertrophy. The left ventricular systolic function appears to be normal with a calculated ejection fraction 58% and visual ejection fraction of 55-60%. There is mild left ventricular enlargement. Diastolic dysfunction is indeterminate. 3. Left atrial chamber dimension is severely enlarged. 4. Right atrial chamber dimension is mildly enlarged. 5. There is moderate aortic valve stenosis with a peak velocity of 2.7-3.4 m/sec, mean gradient of 25 mmHg, and aortic valve area of 1.6 cm2. 6. Shelf of calcium below the aortic valve is described in the body of this study. Doubt subaortic membrane or vegetation as this is immobile and highly calcified. 7. There is moderate aortic valve calcification. In addition there appears to be a shelf of calcium in the subaortic area measuring 0.7 x 1.9 cm. 8. In the parasternal long-axis view there appears to be partial flail of the posterior leaflet, not seen in other views. There is moderate mitral valve regurgitation. However I think that this underestimates the degree of regurgitation as the jet appears highly eccentric. 9. There is mild tricuspid valve regurgitation. 10. Moderate pulmonary hypertension, estimated pulmonary arterial systolic pressure is 62 mmHg. 11. Dilated inferior vena cava with normal inspiratory collapse. 12. Left pleural effusion. 13. Atrial fibrillation. Left Ventricle Left ventricular chamber dimension is normal. Left ventricular systolic function is normal, estimated at 55-60%. There is mildly increased left ventricular wall thickness. Left ventricular septal wall motion is normal. The left ventricular diastolic function is indeterminate. Right Ventricle Right ventricular chamber dimension is normal. Right ventricular systolic function is normal. Left Atria Left atrial chamber dimension is severely enlarged. Right Atria Right atrial chamber dimension is mildly enlarged. Aortic Valve The aortic valve is trileaflet. There is no aortic valve sclerosis. There is moderate aortic valve stenosis with a peak velocity of 2.7-3.4 m/sec, mean gradient of 25 mmHg, and aortic valve area of 1.6 cm2. There is no aortic valve regurgitation. There is moderate aortic valve calcification. In addition there appears to be a shelf of calcium in the subaortic area measuring 0.7 x 1.9 cm. Pulmonic Valve The pulmonic valve is normal. There is no pulmonic valve stenosis. There is trace pulmonic regurgitation. Mitral Valve The mitral valve has normal leaflets. There is no mitral valve stenosis. In the parasternal long-axis view there appears to be partial flail of the posterior leaflet, not seen in other views. There is moderate mitral valve regurgitation. H
[2020-07-15] MEDS: IPRATROPIUM BR 0.02% INH SOLN 0.5 MG/2.5 ML VIAL INHALATION ×4 (01:57→19:53)
[2020-07-15] MEDS: ALBUTEROL SULFATE NEB 2.5 MG/0.5 ML INH INHALATION ×4 (01:57→19:53)
[2020-07-15] MEDS: ACETAMINOPHEN 325 MG TABLET 650 MG PO ×4 (05:29→23:18)
[2020-07-15 05:40] LABS: Hematocrit 29.7 % (42.0-52.0); Mean Corpuscular HGB Conc 33.7 g/dl (32-36); Mean Corpuscular Hemoglobin 30.2 pg (26-34); Mean Corpuscular Volume 89.7 fl (80-100); Platelet Count Result 271 k/mm3 (150-375); Red Blood Count 3.31 M/mm3 (4.6-6.20); Red Cell Distribution Width 14.2 % (11.5-14.5); White Blood Count 12.4 K/mm3 (4.5-10.0)
[2020-07-15 05:51] LABS: INR 3.2
[2020-07-15 05:54] LABS: Anion Gap 3 mmol/L (8-16); Blood Urea Nitrogen 22 mg/dL (9-20); Calcium 7.6 mg/dL (8.4-10.2); Carbon Dioxide 35 mmol/L (22-30); Chloride 91 mmol/L (98-107); Estimated Glomerular Filt Rate > 60; Glucose 133 mg/dL (75-110); Potassium 2.9 mmol/L (3.4-5.0); Sodium 129 mmol/L (137-145)
[2020-07-15] MEDS: FUROSEMIDE INJ 40 MG/4 ML VIAL IV PUSH ×2 (07:07→17:10)
[2020-07-15] MEDS: METOPROLOL TARTRATE 25 MG TABLET PO ×2 (09:03→21:03)
[2020-07-15] MEDS: ramipriL 5 MG CAPSULE 10 MG PO (09:04)
[2020-07-15] MEDS: CARBIDOPA/LEVODOPA 25/250 MG TABLET 1 TABLET PO ×3 (09:04→17:12)
[2020-07-15] MEDS: amantadine HCL 100 MG CAPSULE PO ×2 (09:04→17:11)
[2020-07-15] MEDS: CLOPIDOGREL BISULFATE 75 MG TABLET PO (09:04)
[2020-07-15] MEDS: FLUTICASONE PROPIONATE 0.05% NA SPR 16 GM BTL (*BKC) 1 SPRAY NASAL (09:05)
[2020-07-15] MEDS: PRAVASTATIN SODIUM 20 MG TABLET PO (09:05)
[2020-07-15] MEDS: ISOSORBIDE MONONITRATE 30 MG TAB.ER.24H PO (09:05)
[2020-07-15] MEDS: POTASSIUM CHLORIDE 20 MEQ PACKET (FOR LIQUID) 40 MEQ PO (09:10)
[2020-07-15] MEDS: ALPRAZolam (*CRX) 0.25 MG TABLET PO (09:27)
[2020-07-15] MEDS: AMIODARONE 360 MG/D5W 200 ML 360 MG/200 ML BAG 16.67 MG IV CONT ×2 (11:10→21:03)
--- NOTE | 2020-07-15 12:59 | WPDNEURORHBP ---
Subjective Date/time seen: 07/15/20 12:59 Interval history: Tell everyone Hi Review of Systems Review of Systems: Narrative: Patient admits to increasing tremors today from his Parkinson's. Patient admits to shortness of breath at rest. Exam Narrative: Exam Narrative: Patient appears fatigued. Patient is seen in his room eating lunch. is present. Patient recognizes me. Patient is on high-flow oxygen. Head is normocephalic affect is flat. Heart rate and rhythm is irregular with loud 3/6 murmur. Lung sounds are decreased. Abdomen is soft. Bilateral upper extremity strength remains 4/5. Left lower extremity strength is 4-5 right lower extremity strength is 3+ to 4-. Patient has not been receiving therapy due to his medical condition. Objective Data Vital Signs Vital Signs: Vital Signs - 24 hr 07/14/20 14:00 07/14/20 14:12 07/14/20 14:27 Temperature Pulse Rate 115 H 107 H 112 H Respiratory Rate 20 20 Blood Pressure Pulse Oximetry 07/14/20 16:00 07/14/20 17:47 07/14/20 18:00 Temperature 36.7 C Pulse Rate 120 H 101 H 102 H Respiratory Rate 26 H Blood Pressure 123/70 Pulse Oximetry 93 94 07/14/20 20:00 07/14/20 20:39 07/14/20 20:49 Temperature 36.6 C Pulse Rate 100 111 H 109 H Respiratory Rate 20 20 Blood Pressure 112/64 Pulse Oximetry 98 95 07/14/20 21:41 07/14/20 22:00 07/14/20 23:25 Temperature 36.6 C Pulse Rate 99 114 H 110 H Respiratory Rate 22 H Blood Pressure 134/88 Pulse Oximetry 92 07/14/20 23:56 07/15/20 00:00 07/15/20 02:00 Temperature Pulse Rate 100 107 H 96 Respiratory Rate 24 H Blood Pressure Pulse Oximetry 92 07/15/20 02:12 07/15/20 04:00 07/15/20 05:11 Temperature 36.6 C Pulse Rate 109 H 99 Respiratory Rate 24 H 22 H Blood Pressure 133/80 Pulse Oximetry 91 85 L 07/15/20 06:00 07/15/20 06:35 07/15/20 07:58 Temperature Pulse Rate 108 H 142 H Respiratory Rate 24 H Blood Pressure Pulse Oximetry 80 L 94 07/15/20 08:00 07/15/20 08:10 07/15/20 09:03 Temperature 36.7 C Pulse Rate 109 H 114 H 114 H Respiratory Rate 22 H 24 H Blood Pressure 151/84 H Pulse Oximetry 92 07/15/20 10:00 07/15/20 12:00 Temperature 36.6 C Pulse Rate 104 H 98 Respiratory Rate 24 H Blood Pressure 146/75 H Pulse Oximetry 88 L Intake/Output Intake/Output: Intake & Output 07/12/20 07/13/20 07/14/20 07/15/20 23:59 23:59 23:59 23:59 Intake Total 780 1770 980 Output Total 1725 4275 800 Balance -947 -438 180 Meds/Results Medications: Active Medications Generic Name Dose Route Start Last Admin Trade Name Freq PRN Reason Stop Dose Admin Acetaminophen 650 mg 07/13/20 00:00 07/15/20 12:15 Acetaminophen 325 Mg Tablet PO 650 mg Q6H ASHLEY Administration Albuterol 2.5 mg 07/13/20 02:00 07/15/20 07:58 Albuterol Sulfate Neb 2.5 Mg/0.5 Ml Inh INHALATION 2.5 mg Q6HRT ASHLEY Administration Amantadine HCl 100 mg 07/13/20 09:00 07/15/20 09:04 Amantadine Hcl 100 Mg Capsule PO 100 mg BID ASHLEY Administration Amiodarone HCl 200 mg 07/13/20 09:00 07/13/20 13:23 Amiodarone Hcl 200 Mg Tablet PO 200 mg BID ASLHEY Administration Bisacodyl 10 mg 07/13/20 00:07 Bisacodyl 10 Mg Suppository RECTAL DAILY PRN Constipation Calcium Carbonate 500 mg 07/13/20 09:00 07/15/20 12:15 Calcium/Vitamin D 500 Mg Tablet PO 08/12/20 09:01 500 mg TID ASHLEY Administration Carbidopa/Levodopa 1 tablet 07/13/20 09:00 07/15/20 12:15 Carbidopa/Levodopa 25/250 Mg Tablet PO 1 tablet TID ASHLEY Administration Clopidogrel Bisulfate 75 mg 07/13/20 09:00 07/15/20 09:04 Clopidogrel Bisulfate 75 Mg Tablet PO 75 mg DAILY ASHLEY Administration Fish Oil 1 gm 07/13/20 21:00 07/14/20 21:41 [place] 3 Polyunsat Fatty Acids 1 Gm Cap PO 08/12/20 21:01 1 gm HS ASHLEY Administration Fluticasone Propionate 1 spray 07/13/20 09:00 07/15/20 09:05 Fluticas
[2020-07-15 15:28] LABS: Anion Gap 3 mmol/L (8-16); Blood Urea Nitrogen 24 mg/dL (9-20); Calcium 7.6 mg/dL (8.4-10.2); Carbon Dioxide 33 mmol/L (22-30); Chloride 92 mmol/L (98-107); Estimated CRCL calculation 51 ml/min; Estimated Glomerular Filt Rate > 60; Glucose 156 mg/dL (75-110); Potassium 3.7 mmol/L (3.4-5.0); Sodium 128 mmol/L (137-145)
--- NOTE | 2020-07-15 16:31 | PM.PNCARD ---
Progress Note: A&P Assessment and Plan (1) Acute hypoxemic respiratory failure: Code(s): J96.01 - Acute respiratory failure with hypoxia Status: Acute Assessment and Plan: Improved with diuretics, O2 supplementation. CHF secondary to MR plus/minus aspiration pneumonia. CTA negative for PE. Pulmonary vascular congestion most likely, radiology could not exclude pneumonia. On antibiotics for possible aspiration pneumonia. (2) Acute pulmonary edema: Code(s): J81.0 - Acute pulmonary edema Status: Acute Assessment and Plan: As above, continue IV diuresis, monitor renal function, electrolytes, sodium, input and output, daily weight. Patient has clinically improved yet mildly volume overload with crackles on exam and higher O2 needs. Chest x-ray and ProBNP to re-evaluate pulmonary status. (3) Mitral regurgitation: Code(s): I34.0 - Nonrheumatic mitral (valve) insufficiency Status: Acute Assessment and Plan: Examination suggests severe mitral regurgitation. Need prior documentation for clarification. Repeat 2D echocardiogram. Review prior records unavailable as requested. Discussed possibility of transfer to [facility] for further management of his severe mitral regurgitation depending on clinical circumstances. Attempted to reach patient's predatory animal exterminator, Dr. Mandeep Dougherty at [phone], office closed. Will try again at a later date. (4) Atrial fibrillation: Code(s): I48.91 - Unspecified atrial fibrillation Status: Acute Assessment and Plan: Developed atrial fibrillation RVR on 07/13/2020. Remains on IV amiodarone for heart rate control. Continue systemic anticoagulation goal INR 2-3. Consider cardioversion prior to discharge. (5) Coronary artery disease involving coronary bypass graft: Code(s): I25.810 - Atherosclerosis of coronary artery bypass graft(s) without angina pectoris Status: Acute Assessment and Plan: Minimal troponin elevation most likely type 2 infarct secondary to acute hypoxic respiraTrend troponins. Review prior cardiovascular records. Continue clopidogrel, systemic anticoagulation for now. (6) Hypertension: Code(s): I10 - Essential (primary) hypertension Status: Acute Assessment and Plan: Previously elevated but better controlled now. Ramipril, Imdur, metoprolol tartrate 25 mg twice daily. Subjective Date/time seen: 07/15/20 16:31 Interval history: 85-year-old man with: Significant shortness of breath pulmonary congestion in this man with a history of ischemic heart disease mitral valve regurgitation recent development of atrial fib/atrial flutter within the last 48 hours. Patient is here rehabbing from repair of hip fracture sustained in a fall. 07/14/2020: Receiving intravenous amiodarone. Still in atrial flutter heart rate is reasonably well controlled. He is resting comfortably and is not really symptomatic at the moment. Date of service 07/15/2020: Complains of chest congestion and shortness of breath particularly with activity, heart racing with activity. On O2 but O2 requirements have increased, now on 15 L FIRE SUPPRESSION CAPTAIN, despite being on lasix 40 mg IVP BID since 07/13/2020. Diuresed 500 cc's yesterday, perhaps more today. Remains on amiodarone drip and antibiotics for suspected aspiration pneumonia. Attentive at bedside. Physical therapy notes reviewed. Review of Systems Constitutional: Constitutional: Reports weakness Eyes: Eyes: Reports no additional eye complaints ENT: Reports dysphagia (Chronic mild trouble eating) Cardiovascular: Cardiovascular: Denies chest pain, Denies pedal edema, Denies leg edema, Denies lightheadedness and Reports palpitations Respiratory: Res
--- NOTE | 2020-07-15 17:09 | PM.IMPN ---
Progress Note: A&P Assessment and Plan (1) Acute hypoxemic respiratory failure: Code(s): J96.01 - Acute respiratory failure with hypoxia Status: Acute Assessment and Plan: The patient had been maintaining on 2-3 L of oxygen. However the patient was desatting down in the 80s and had to be placed on a non-rebreather. The patient was struggling with respiratory effort with respirations 32-40 respirations per minute. The patient has been treated for pneumonia. The patient was placed on a BiPAP and Lasix had been ordered for the patient. 07/15/20 17:09 07/14 Patient 85-year-old male presented with a complaint cough shortness of breath CT of the chest did not show pulmonary emboli suspect patient has ground-glass apparent bilateral suspicious COVID-19, patient is isolated and test is pending. Patient is also treated with Zosyn for possible secondary pneumonia, patient is off BiPAP now on high-flow nasal cannula, plan to productive cough but denies any fever or chills. 07/15 patient COVID test is negative, patient still in atrial flutter with rate above 100 patient is on amiodarone seen by composite assembler hoping to convert the patient to sinus rhythm, seen by Cardiology recommended continue present, patient is significant mitral wall regurgitation indeed a surgical clip, there is suspicion patient may have aspiration number and being treated with Zosyn will continue to monitor, patient's is present in the room. (2) Acute pulmonary edema: Code(s): J81.0 - Acute pulmonary edema Status: Acute Assessment and Plan: secondary to CHF (3) Congestive heart failure: Code(s): I50.9 - Heart failure, unspecified Status: Acute Assessment and Plan: elevated BNP, h/o of flail MV (4) Mitral regurgitation: Code(s): I34.0 - Nonrheumatic mitral (valve) insufficiency Status: Acute Assessment and Plan: 06/20/2020. LONNIE revealed a flail to posterior mitral valve leaflet with torn chordae tendonae and severe mitral regurgitation (5) PNA (pneumonia): Code(s): J18.9 - Pneumonia, unspecified organism Status: Acute Assessment and Plan: According to these towards shipped antibiotics for healthcare associated pneumonia Zosyn was the 1st line. So I did change him to Zosyn IV. Will continue with neb treatments. Will get a sputum and blood cultures. 07/13/20 Patient previously on Levaquin while in PT rehab, however, suspect that he may have aspirated and he is on Zosyn at present. Less inclined to believe he has contracted Coronavirus (6) Atrial fibrillation: Code(s): I48.91 - Unspecified atrial fibrillation Status: Acute Assessment and Plan: The patient had been converted with medication prior to coming to [facility]. The patient is on Coumadin will continue with daily PT INR. Drip and was transitioned to p.o. his amiodarone. He is now in sinus rhythm. He does have a first-degree block. Continue with metoprolol 07/13/20 Patient on amiodarone and Coumadin INR has been subtherapeutic currently 2.2. Right lower extremity ultrasound pending (7) Parkinsons disease: Code(s): G20 - Parkinson's disease Status: Acute Assessment and Plan: Continue with carbidopa levodopa. 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 Patient will need to continue with PT and OT as patient's respiratory status improves. At this moment the
[2020-07-15] MEDS: TAMSULOSIN HCL 0.4 MG CAPSULE PO (17:10)
[2020-07-15] MEDS: OMEGA 3 POLYUNSAT FATTY ACIDS 1 GM CAP PO (21:02)
[2020-07-16] VITALS (29 sets, daily range): BP systolic 122–168; BP diastolic 73–91; PULSE 94–142; RESP 20–40; TEMP 36.6–37.5; O2SAT 90–99
[2020-07-16] MEDS: IPRATROPIUM BR 0.02% INH SOLN 0.5 MG/2.5 ML VIAL INHALATION ×3 (01:19→21:20)
[2020-07-16] MEDS: ALBUTEROL SULFATE NEB 2.5 MG/0.5 ML INH INHALATION ×3 (01:19→21:20)
--- NOTE | 2020-07-16 04:33 | PC.NURSE ---
patient has removed o2 multiple times tonight and is becoming more confused. sats decrease to the 60's when on ra. patient heart rate will increase to the 140 s.
[2020-07-16 04:42] LABS: Hematocrit 31.3 % (42.0-52.0); Hemoglobin 10.6 g/dL (14.0-18.0); Mean Corpuscular HGB Conc 33.9 g/dl (32-36); Mean Corpuscular Hemoglobin 31.3 pg (26-34); Mean Corpuscular Volume 92.3 fl (80-100); Mean Platelet Volume 11.1 fl (7.4-10.4); Platelet Count Result 262 k/mm3 (150-375); Red Blood Count 3.39 M/mm3 (4.6-6.20); Red Cell Distribution Width 14.6 % (11.5-14.5); White Blood Count 13.3 K/mm3 (4.5-10.0)
[2020-07-16 05:00] LABS: Anion Gap 2 mmol/L (8-16); Blood Urea Nitrogen 24 mg/dL (9-20); Carbon Dioxide 38 mmol/L (22-30); Chloride 90 mmol/L (98-107); Estimated CRCL calculation 46 ml/min; Estimated Glomerular Filt Rate > 60; Glucose 141 mg/dL (75-110); Potassium 3.1 mmol/L (3.4-5.0); Sodium 130 mmol/L (137-145)
[2020-07-16 05:05] LABS: NT Pro B Type Natriuretic Pept 7650 PG/ML (5-100)
[2020-07-16] MEDS: ACETAMINOPHEN 325 MG TABLET 650 MG PO ×3 (05:44→18:03)
[2020-07-16] MEDS: CARBIDOPA/LEVODOPA 25/250 MG TABLET 1 TABLET PO ×3 (08:30→18:03)
[2020-07-16] MEDS: POTASSIUM CHLORIDE 20 MEQ TABLET 40 MEQ PO (08:30)
[2020-07-16] MEDS: ramipriL 5 MG CAPSULE 10 MG PO (08:30)
[2020-07-16] MEDS: CLOPIDOGREL BISULFATE 75 MG TABLET PO (08:30)
[2020-07-16] MEDS: amantadine HCL 100 MG CAPSULE PO ×2 (08:30→18:03)
[2020-07-16] MEDS: ISOSORBIDE MONONITRATE 30 MG TAB.ER.24H PO (08:30)
[2020-07-16] MEDS: METOPROLOL TARTRATE 25 MG TABLET PO ×2 (08:30→20:22)
[2020-07-16] MEDS: PRAVASTATIN SODIUM 20 MG TABLET PO (08:31)
[2020-07-16] MEDS: FLUTICASONE PROPIONATE 0.05% NA SPR 16 GM BTL (*BKC) 1 SPRAY NASAL (08:31)
[2020-07-16] MEDS: FUROSEMIDE INJ 40 MG/4 ML VIAL IV PUSH ×3 (08:31→20:22)
[2020-07-16] MEDS: AMIODARONE 360 MG/D5W 200 ML 360 MG/200 ML BAG 16.67 MG IV CONT ×2 (11:03→21:55)
[2020-07-16 12:25] LABS: INR 3.9; Prothrombin Time 38.3 Seconds (11.1-14.7)
--- NOTE | 2020-07-16 13:41 | PM.IMPN ---
Progress Note: A&P Assessment and Plan (1) Acute hypoxemic respiratory failure: Code(s): J96.01 - Acute respiratory failure with hypoxia Status: Acute Assessment and Plan: The patient had been maintaining on 2-3 L of oxygen. However the patient was desatting down in the 80s and had to be placed on a non-rebreather. The patient was struggling with respiratory effort with respirations 32-40 respirations per minute. The patient has been treated for pneumonia. The patient was placed on a BiPAP and Lasix had been ordered for the patient. 07/16/20 13:41 07/14 Patient 85-year-old male presented with a complaint cough shortness of breath CT of the chest did not show pulmonary emboli suspect patient has ground-glass apparent bilateral suspicious COVID-19, patient is isolated and test is pending. Patient is also treated with Zosyn for possible secondary pneumonia, patient is off BiPAP now on high-flow nasal cannula, plan to productive cough but denies any fever or chills. 07/15 patient COVID test is negative, patient still in atrial flutter with rate above 100 patient is on amiodarone seen by terrazzo polisher hoping to convert the patient to sinus rhythm, seen by Cardiology recommended continue present, patient is significant mitral wall regurgitation indeed a surgical clip, there is suspicion patient may have aspiration number and being treated with Zosyn will continue to monitor, patient's is present in the room. 07/16 patient with atrial flutter on and off RVR on amiodarone drip seen by cardiology and titrating amiodarone to control the rate if continue to persist patient may benefit from cardioversion, further recommendation from Cardiology, there is also concern the patient has aspiration being treated with Zosyn, repeat chest x-ray tomorrow and further recommendation to follow. (2) Acute pulmonary edema: Code(s): J81.0 - Acute pulmonary edema Status: Acute Assessment and Plan: secondary to CHF (3) Congestive heart failure: Code(s): I50.9 - Heart failure, unspecified Status: Acute Assessment and Plan: elevated BNP, h/o of flail MV (4) Mitral regurgitation: Code(s): I34.0 - Nonrheumatic mitral (valve) insufficiency Status: Acute Assessment and Plan: 06/20/2020. LONNIE revealed a flail to posterior mitral valve leaflet with torn chordae tendonae and severe mitral regurgitation (5) PNA (pneumonia): Code(s): J18.9 - Pneumonia, unspecified organism Status: Acute Assessment and Plan: According to these towards shipped antibiotics for healthcare associated pneumonia Zosyn was the 1st line. So I did change him to Zosyn IV. Will continue with neb treatments. Will get a sputum and blood cultures. 07/13/20 Patient previously on Levaquin while in PT rehab, however, suspect that he may have aspirated and he is on Zosyn at present. Less inclined to believe he has contracted Coronavirus (6) Atrial fibrillation: Code(s): I48.91 - Unspecified atrial fibrillation Status: Acute Assessment and Plan: The patient had been converted with medication prior to coming to [facility]. The patient is on Coumadin will continue with daily PT INR. Drip and was transitioned to p.o. his amiodarone. He is now in sinus rhythm. He does have a first-degree block. Continue with metoprolol 07/13/20 Patient on amiodarone and Coumadin INR has been subtherapeutic currently 2.2. Right lower extremity ultrasound pending (7) Parkinsons disease: Code(s): G20 - Parkinson's disease Status: Acute Assessment and Plan: Continue with carbidopa levodopa. (8) Hypertension: Code(s): I10 - Essential (primary) hypertension Status: Acute Assessment and Plan: Continue with metoprolol and ramipril (9) Hyperlipidemia: Code(s): E78.5 - Hyperlipidemia, unspecified Status: Acute (10) Aftercare following right hip joint r
--- NOTE | 2020-07-16 14:29 | PM.PNCARD ---
Progress Note: A&P Assessment and Plan (1) Acute pulmonary edema: Code(s): J81.0 - Acute pulmonary edema Status: Acute Assessment and Plan: Hypoxia and shortness of breath due to CHF and possibly aspiration pneumonia. Patient somewhat improved with diuresis, yet mildly volume overload with crackles on exam and high O2 needs. Chest x-ray showed worsening CHF and proBNP was higher than earlier this day. Continue IV diuretics, will give an extra dose this afternoon, monitor renal function, electrolytes, sodium, input and output etc. Has hypokalemia today; will supplement Kcl. Recheck in a.m. (2) Atrial fibrillation: Code(s): I48.91 - Unspecified atrial fibrillation Status: Acute Assessment and Plan: Developed recurrent atrial fibrillation RVR on 07/13/2020. Has converted to an atrial flutter. Remains on IV amiodarone for heart rate control. Will given extra doses heart rate is generally 100-105 BPM, occ higher. Continue systemic anticoagulation goal INR 2-3. INR is high and I will hold the warfarin today. Consider cardioversion prior to discharge. With the patient's current respiratory status I think there is risk of complications if we proceed with sedation and cardioversion at this time. (3) Mitral regurgitation: Code(s): I34.0 - Nonrheumatic mitral (valve) insufficiency Status: Acute Assessment and Plan: Examination suggests severe mitral regurgitation. LONNIE 06/20/2020 revealed a flail to posterior mitral valve leaflet with torn chordae tendonae and severe mitral regurgitation, done by patient's lithographic photographer, Dr. Mandeep Dougherty at [phone] at [facility]. Mitral valve clip planned. (4) Coronary artery disease involving coronary bypass graft: Code(s): I25.810 - Atherosclerosis of coronary artery bypass graft(s) without angina pectoris Status: Acute Assessment and Plan: Minimal troponin elevation most likely type 2 infarct secondary to acute hypoxic respiraTrend troponins. Review prior cardiovascular records. Continue clopidogrel, systemic anticoagulation for now. (5) Hypertension: Code(s): I10 - Essential (primary) hypertension Status: Acute Assessment and Plan: Previously elevated but better controlled now. Ramipril, Imdur, metoprolol tartrate 25 mg twice daily. 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 Will allow to dangle at bedside and further activity progression per rehab. Subjective Date/time seen: 07/16/20 14:29 Interval history: 85-year-old man with CHF, history of ischemic heart disease, mitral valve regurgitation, recent development of atrial fib/atrial flutter which was noted post-op after ORIF hip fx after a fall 06/20/2020, and recurred in Rehab. 07/14/2020: Receiving intravenous amiodarone. Still in atrial flutter heart rate is reasonably well controlled. He is resting comfortably and is not really symptomatic at the moment. 07/15/2020: Complains of chest congestion and shortness of breath particularly with activity, heart racing with activity. On O2 but O2 requirements have increased, now on 15 L GAGE DESIGNER, despite being on lasix 40 mg IVP BID since 07/13/2020. Diuresed 500 cc's yesterday, perhaps more today. Remains on amiodarone drip and antibiotics for suspected aspiration pneumonia. Attentive at bedside. Physical therapy notes reviewed. 07/16/2020: Feels he is a little better. Diuresed some yesterday, -860, less today. Remains on high-flow oxygen 15 liters/minute. Geriai
[2020-07-16] MEDS: AMIODARONE 150 MG/D5W 100 ML 150 MG/100 ML BAG 600 MG IV CONT (15:39)
[2020-07-16] MEDS: AMIODARONE 360 MG/D5W 200 ML 360 MG/200 ML BAG 33.33 MG IV CONT (15:39)
[2020-07-16] MEDS: POTASSIUM CHLORIDE 20 MEQ TABLET PO (18:03)
[2020-07-16] MEDS: TAMSULOSIN HCL 0.4 MG CAPSULE PO (18:04)
--- NOTE | 2020-07-16 19:45 | PC.NURSE ---
This patient, Leo Lucio, was received from [ [id number]] on 07/17/20 at 0520. Patient/family oriented to unit policies and routines
[2020-07-16] MEDS: OMEGA 3 POLYUNSAT FATTY ACIDS 1 GM CAP PO (20:22)
[2020-07-17] VITALS (31 sets, daily range): BP systolic 127–166; BP diastolic 63–125; PULSE 93–147; RESP 18–40; TEMP 36.6–36.9; O2SAT 91–100
[2020-07-17] MEDS: ACETAMINOPHEN 325 MG TABLET 650 MG PO (00:15)
[2020-07-17] MEDS: IPRATROPIUM BR 0.02% INH SOLN 0.5 MG/2.5 ML VIAL INHALATION ×3 (03:55→14:12)
[2020-07-17] MEDS: ALBUTEROL SULFATE NEB 2.5 MG/0.5 ML INH INHALATION ×2 (03:56→08:24)
[2020-07-17 04:51] LABS: Hematocrit 31.4 % (42.0-52.0); Hemoglobin 10.7 g/dL (14.0-18.0); Mean Corpuscular HGB Conc 34.1 g/dl (32-36); Mean Corpuscular Hemoglobin 30.9 pg (26-34); Mean Corpuscular Volume 90.8 fl (80-100); Mean Platelet Volume 11.3 fl (7.4-10.4); Platelet Count Result 279 k/mm3 (150-375); Red Blood Count 3.46 M/mm3 (4.6-6.20); Red Cell Distribution Width 14.6 % (11.5-14.5); White Blood Count 14.4 K/mm3 (4.5-10.0)
[2020-07-17 04:59] LABS: INR 3.3; Prothrombin Time 34.1 Seconds (11.1-14.7)
[2020-07-17 05:12] LABS: Anion Gap 1 mmol/L (8-16); Blood Urea Nitrogen 27 mg/dL (9-20); Carbon Dioxide 39 mmol/L (22-30); Chloride 91 mmol/L (98-107); Estimated CRCL calculation 42 ml/min; Estimated Glomerular Filt Rate > 60; Glucose 138 mg/dL (75-110); Potassium 3.2 mmol/L (3.4-5.0); Sodium 131 mmol/L (137-145)
--- NOTE | 2020-07-17 05:18 | PC.NURSE ---
This patient, Leo Lucio, was received from [ [id number]] on 07/17/20 at 0518. Patient/family oriented to unit policies and routines
--- NOTE | 2020-07-17 05:20 | PM.EVENT ---
Event Note Event Note Event Note: Called by nursing to assess this patient who is maxed out on high flow oxygen via NC and nonrebreather secondary to his tachycardia. On my arrival to bedside the patient appears to be in jd respiratory failure with respiratory rate in the mid 30s and tachycardic w/ HR in the 140s. The patient is alert and oriented x 3. I offered endotracheal intubation and mechanical ventilation but the patient states he wants to hold off at this time and feels like he is not tired right now. I explained to the patient the dangers of waiting until he completely fails but the patient is adamant about holding off on intubation at this time. Nursing staff has called his and updated her on the paitent's current clinical condition.
--- NOTE | 2020-07-17 05:20 | PC.NURSE ---
1088- Call to Dr. Dietrich for increased heart rate and increased respirations. Patient alert and oriented refusing to be intubated. Call made to , would like everything done if patient can no longer make his own decisions.
[2020-07-17] MEDS: AMIODARONE 150 MG/D5W 100 ML 150 MG/100 ML BAG 600 MG IV CONT ×2 (05:43→09:15)
[2020-07-17] MEDS: AMIODARONE 360 MG/D5W 200 ML 360 MG/200 ML BAG 33.33 MG IV CONT ×2 (05:44→13:38)
[2020-07-17] MEDS: METOPROLOL TARTRATE 25 MG TABLET PO (08:08)
[2020-07-17] MEDS: amantadine HCL 100 MG CAPSULE PO (08:08)
[2020-07-17] MEDS: CLOPIDOGREL BISULFATE 75 MG TABLET PO (08:09)
[2020-07-17] MEDS: CARBIDOPA/LEVODOPA 25/250 MG TABLET 1 TABLET PO (08:09)
[2020-07-17] MEDS: ramipriL 5 MG CAPSULE 10 MG PO (08:09)
[2020-07-17] MEDS: PRAVASTATIN SODIUM 20 MG TABLET PO (08:09)
[2020-07-17] MEDS: ISOSORBIDE MONONITRATE 30 MG TAB.ER.24H PO (08:09)
[2020-07-17] MEDS: FUROSEMIDE INJ 40 MG/4 ML VIAL IV PUSH (08:09)
[2020-07-17] MEDS: FLUTICASONE PROPIONATE 0.05% NA SPR 16 GM BTL (*BKC) 1 SPRAY NASAL (08:10)
[2020-07-17] MEDS: POTASSIUM CHLORIDE 20 MEQ TABLET.ER PO (08:20)
--- NOTE | 2020-07-17 09:53 | WPDCNINT ---
Assessment and Plan Assessment and plan (1) Acute hypoxemic respiratory failure: Code(s): J96.01 - Acute respiratory failure with hypoxia Status: Acute Assessment and Plan: Acute hypoxic respiratory failure likely related to aspiration pneumonia, CHF exacerbation, moderate to severe mitral valve regurg, severe aortic stenosis, pneumonia/aspiration pneumonitis. -patient's oxygen requirements have increased over the last 24-48 hours -discussed with patient at length regarding wearing of BiPAP overnight intubation and mechanical ventilation to which he agreed -patient has been diuresing well with Lasix, will discuss with cardiology regarding switching him to Bumex -continue bronchodilators -SARS-CoV-2 PCR negative on 07/13/2020 -continue BiPAP /, 80% FiO2 -assistant department manager with pneumonia and/or pulmonary edema and/or acute ARDS -continue Zosyn (2) Atrial fibrillation: Code(s): I48.91 - Unspecified atrial fibrillation Status: Acute Assessment and Plan: Patient with AFib RVR, converted to atrial flutter, given additional IV amiodarone bolus and increase amiodarone to 1 mg/min -cardiology following the patient closely -patient has been on Coumadin which is currently on hold due to elevated INR -INR this morning is 3.3 (3) Mitral regurgitation: Code(s): I34.0 - Nonrheumatic mitral (valve) insufficiency Status: Acute Assessment and Plan: Moderate to severe mitral valve regurg, jayleen on 06/20/2020 revealed flail posterior mitral valve leaflet with tone chordae tendon and severe mitral regurgitation, this was performed by patient's jacquard loom heddles tier Dr. Mandeep Dougherty at [facility] [place] (4) Coronary artery disease involving coronary bypass graft: Code(s): I25.810 - Atherosclerosis of coronary artery bypass graft(s) without angina pectoris Status: Acute Assessment and Plan: Mild initial troponin elevation likely secondary to a type 2 infarct due to acute hypoxic respiratory failure. -continue Plavix (5) Aftercare following right hip joint replacement surgery: Code(s): Z47.1 - Aftercare following joint replacement surgery; Z96.641 - Presence of right artificial hip joint Status: Acute Assessment and Plan: Patient on bedrest post fall status post closed reduction hip pinning on 06/21/2020 for a communited and and minimally displaced intratrochanteric right hip fracture -patient was at [facility] when he developed shortness of breath and was transferred to the intermediate Unit after which he was made a ICU patient (6) Congestive heart failure: Code(s): I50.9 - Heart failure, unspecified Status: Acute Assessment and Plan: Congestive heart failure likely related to mitral valve regurg, aortic stenosis, pulmonary edema -continue diuretics, FRANK-inhibitor, beta-emmanuelle (7) Parkinsons disease: Code(s): G20 - Parkinson's disease Status: Acute Assessment and Plan: Continue amantadine, carbidopa/levodopa (8) Hypertension: Code(s): I10 - Essential (primary) hypertension Status: Acute Assessment and Plan: Continue FRANK-inhibitor, beta-emmanuelle and p.r.n. hydralazine (9) DVT prophylaxis: Code(s): Z29.9 - Encounter for prophylactic measures, unspecified Status: Acute Assessment and Plan: Patient was on Coumadin, currently on hold as INR is 3.3 this morning Additional Plan Discussed with patient and his at bedside and in rounds and updated them with patient's condition plan of care. Both are aware that his valvular issues of the heart is causing most of the respiratory distress and volume overload. They have also discuss with cardiology regarding transferred to [facility]. Code status: Full code Critical care time spent: 52 minutes This dictation may have been done utilizing a voice recognition system. Attempts have been made to correct error
[2020-07-17 10:27] LABS: Potassium 3.3 mmol/L (3.4-5.0)
--- NOTE | 2020-07-17 14:45 | PM.TDS ---
Transfer Discharge Sum: Prov Provider Date of admission: 07/12/20 22:47 Primary care physician: Lele Taylor, Admitting clinician: Sudhakar Thomas MD Consults: 07/13/20 Consult to Physician Routine Comment: Consulting Provider: Jr Galan at home independent call center agent/MD group to consult: Dr Galan Reason for consultation: CHF Has provider been notified: Yes 07/17/20 Consult to Physician Routine Comment: Consulting Provider: Mason Almeida at home independent call center agent/MD group to consult: optics test technician Reason for consultation: icu Has provider been notified: Yes DS: Admitting Diagnosis Admitting Diagnosis Admitting Diagnosis: Shortness of breath DS: Discharge Diagnosis Discharge Diagnosis (1) Acute hypoxemic respiratory failure: Code(s): J96.01 - Acute respiratory failure with hypoxia Status: Acute Assessment and Plan: The patient had been maintaining on 2-3 L of oxygen. However the patient was desatting down in the 80s and had to be placed on a non-rebreather. The patient was struggling with respiratory effort with respirations 32-40 respirations per minute. The patient has been treated for pneumonia. The patient was placed on a BiPAP and Lasix had been ordered for the patient. 07/16/20 13:41 07/14 Patient 85-year-old male presented with a complaint cough shortness of breath CT of the chest did not show pulmonary emboli suspect patient has ground-glass apparent bilateral suspicious COVID-19, patient is isolated and test is pending. Patient is also treated with Zosyn for possible secondary pneumonia, patient is off BiPAP now on high-flow nasal cannula, plan to productive cough but denies any fever or chills. 07/15 patient COVID test is negative, patient still in atrial flutter with rate above 100 patient is on amiodarone seen by test lead application testing hoping to convert the patient to sinus rhythm, seen by Cardiology recommended continue present, patient is significant mitral wall regurgitation indeed a surgical clip, there is suspicion patient may have aspiration number and being treated with Zosyn will continue to monitor, patient's is present in the room. 07/16 patient with atrial flutter on and off RVR on amiodarone drip seen by cardiology and titrating amiodarone to control the rate if continue to persist patient may benefit from cardioversion, further recommendation from Cardiology, there is also concern the patient has aspiration being treated with Zosyn, repeat chest x-ray tomorrow and further recommendation to follow. (2) Acute pulmonary edema: Code(s): J81.0 - Acute pulmonary edema Status: Acute Assessment and Plan: secondary to CHF (3) Congestive heart failure: Code(s): I50.9 - Heart failure, unspecified Status: Acute Assessment and Plan: elevated BNP, h/o of flail MV (4) Mitral regurgitation: Code(s): I34.0 - Nonrheumatic mitral (valve) insufficiency Status: Acute Assessment and Plan: 06/20/2020. LONNIE revealed a flail to posterior mitral valve leaflet with torn chordae tendonae and severe mitral regurgitation (5) PNA (pneumonia): Code(s): J18.9 - Pneumonia, unspecified organism Status: Acute Assessment and Plan: According to these towards shipped antibiotics for healthcare associated pneumonia Zosyn was the 1st line. So I did change him to Zosyn IV. Will continue with neb treatments. Will get a sputum and blood cultures. 07/13/20 Patient previously on Levaquin while in PT rehab, however, suspect that he may have aspirated and he is on Zosyn at present. Less inclined to believe he has contracted Coronavirus (6) Atrial fibrillation: Code(s): I48.91 - Unspecified atrial fibrillation Status: Acute Assessment and Plan: The patient had been converted with medication prior to coming to [facility]. The patient is on Coumadin will continue with daily PT INR. Drip and was transitioned to p.o.
--- NOTE | 2020-07-17 14:57 | PM.PNCARD ---
Progress Note: A&P Assessment and Plan (1) Acute diastolic CHF (congestive heart failure): Code(s): I50.31 - Acute diastolic (congestive) heart failure Status: Acute Assessment and Plan: Hypoxia and shortness of breath due to CHF and possibly aspiration pneumonia. Patient somewhat improved with diuresis, better control of atrial flutter, and BiPAP. CXR improved. Yet pt still in CHF with high O2 needs. Over the last few days despite our attentions he has deteriorated. I don't think we will be able to get him much better without addressing the underlying reason for his CHF, his severe mitral regurgitation, aggravated by his atrial flutter. I think he will need to undergo the mitral valve clip procedure sooner rather than later; a service we can't provide at [facility]. Family requesting that pt be transferred to [facility] under the care of his usual log buncher, Dr Dougherty. Spoke to Dr. Dougherty and the [facility] hospitalist who agree to accept pt in transfer. (2) Atrial fibrillation: Code(s): I48.91 - Unspecified atrial fibrillation Status: Acute Assessment and Plan: Developed recurrent atrial fibrillation RVR on 07/13/2020. Has converted to an atrial flutter. Remains on IV amiodarone for heart rate control. Will given extra doses heart rate is generally 100-105 BPM, occ higher. Continue systemic anticoagulation goal INR 2-3. INR is high but declining. Warfarin 2 mg qd held yesterday. I will hold the warfarin again today. We had hoped pt would convert to NSR w/ amiodarone, but he has not. Electrical cardioversion is an option, but with the patient's current respiratory status I think there is risk of complications (need for intubation) if we proceed with sedation and cardioversion at this time. (3) Mitral regurgitation: Code(s): I34.0 - Nonrheumatic mitral (valve) insufficiency Status: Acute Assessment and Plan: Examination suggests severe mitral regurgitation. LONNIE 06/20/2020 revealed a flail to posterior mitral valve leaflet with torn chordae tendonae and severe mitral regurgitation, done by patient's log buncher, Dr. Mandeep Dougherty at [phone] at [facility]. Mitral valve clip planned. (4) Coronary artery disease involving coronary bypass graft: Code(s): I25.810 - Atherosclerosis of coronary artery bypass graft(s) without angina pectoris Status: Acute Assessment and Plan: Minimal troponin elevation most likely type 2 infarct secondary to acute hypoxic respiraTrend troponins. Review prior cardiovascular records. Continue clopidogrel, systemic anticoagulation for now. (5) Aortic stenosis: Code(s): I35.0 - Nonrheumatic aortic (valve) stenosis Status: Acute Assessment and Plan: Moderate aortic stenosis also noted. (6) Aftercare following right hip joint replacement surgery: Code(s): Z47.1 - Aftercare following joint replacement surgery; Z96.641 - Presence of right artificial hip joint Status: Acute Assessment and Plan: Patient's rehab has been interrupted due to his cardiac decompensation; now on complete bedrest. Subjective Date/time seen: 07/17/20 14:57 Interval history: 85-year-old man with CHF, history of ischemic heart disease, mitral valve regurgitation, recent development of atrial fib/atrial flutter which was noted post-op after ORIF hip fx after a fall 06/20/2020, and recurred in Rehab. 07/14/2020: Receiving intravenous amiodarone. Still in atrial flutter heart rate is reasonably well controlled. He is resting comfortably and is not really symptomatic at the moment. 07/15/2020: Complains of chest congestion and shortness of breath particularly with activity, heart racing with activity. On O
== END 2020-07-17 18:25 | disposition short-term general hospital (02) | DRG 189 ==
LOC: ANHIMU 07-16 18:27 → ANHICU 07-17 18:05 → ANHIMU 07-21 12:28
PROVIDERS: Hospitalist; Internal Medicine; Internal Medicine Cardiovascular Disease; Nurse Practitioner; Admitting Provider Internal Medicine; PCP Internal Medicine; Visit Provider Family Medicine
DX: J96.01 Acute respiratory failure with hypoxia (principal); I50.31 Acute diastolic (congestive) heart failure; J18.9 Pneumonia, unspecified organism; I25.810 Atherosclerosis of coronary artery bypass graft(s) without angina pectoris; Z20.822 Contact with and (suspected) exposure to COVID-19; I11.0 Hypertensive heart disease with heart failure; I34.0 Nonrheumatic mitral (valve) insufficiency; G20 Parkinson's disease; I48.91 Unspecified atrial fibrillation; I44.0 Atrioventricular block, first degree; E78.5 Hyperlipidemia, unspecified; F41.8 Other specified anxiety disorders; Z96.641 Presence of right artificial hip joint; Z79.01 Long term (current) use of anticoagulants; Z79.899 Other long term (current) drug therapy; Z87.891 Personal history of nicotine dependence; Z95.5 Presence of coronary angioplasty implant and graft; Z98.49 Cataract extraction status, unspecified eye
CPT/HCPCS: 36415; 71045; 80048; 80053; 81001; 83615; 83735; 83880; 84132; 84484; 85025; 85027; 85610; 87040; 92611; 93005; 93306; 94002; 94003; 94640; A9270; C9803; J0282; J1940; J2543; J3480; U0003; U0005